=== PATIENT | male | born 1935 | race Caucasian/White ===

== ENCOUNTER 2018-12-18 12:22 | Emergency (ER) | payer MEDICARE ==
[~2018-12-18] VITALS: Ht 180.3 cm; Wt 88.0 kg
[~2018-12-18 12:22] MED LIST: ASP325TEC PO; CALC650T14 PO; DONE10TA5 PO; FINA5TAB6 PO; GLIP10TA13 PO; GLUC500C2 PO; HYDR25TA4 PO; LISI10TA2 PO; METO100T2 PO; MULT-974 PO; NF-TYLARTH PO; SIMV80TA3 PO; TERA10CA PO
--- NOTE | 2018-12-18 12:50 | NUR ---
NO MED LIST WITH PATIENT,AND FAMILY KNOW MEDS.
--- NOTE | 2018-12-18 13:24 | ED Fall/Injury ---
General Chief Complaint: Trauma-Non Activation Stated Complaint: FALLEN, HIP PAIN Nursing Triage Note: TO ED PER W/C ACCOMPIED BY FAMILY. WHO REPORTS WAS SENT BY HOME HEALTH . PATIENT FELL UNSURE WHEN. PATIENT REPORTS THAT HE TRIPPED AND FELL C/O PAIN IN L KNEE. Source: patient Exam Limitations: no limitations History of Present Illness Date Seen by Provider: Dec 18, 2018 Time Seen by Provider: 12:33 Initial Comments Here with report of fall couple days ago. Apparently had some pain to the left hip and knee as evaluated by home health nurse from the [place]. She recommended to the family that he is sent for evaluation. They ultimately brought him here for evaluation of the knee. Patient denies hitting his head. He does have some balance problems related to history of cerebral aneurysm and brain injury from that. Occurred: other (2 days ago) Severity: moderate Injuries/Pain Location: pelvis, lower extremity Context: tripped Loss of Consciousness: no loss of consciousness Associated Symptoms (Fall): No Abdominal Pain, No Chest Pain, No Confusion, No Headache; Trouble Walking Allergies and Home Medications Allergies Coded Allergies: Penicillins (Verified Allergy, Unknown, 02/11/06) Home Medications Acetaminophen 650 Mg Cplt, 650 MG PO BID PRN for PAIN, (Reported) Aspirin 325 Mg Tabec, 325 MG PO DAILY, (Reported) Calcium Carbonate 650 Mg Tablet, 650 MG PO BID, (Reported) Donepezil HCl 10 Mg Tablet, 10 MG PO HS, (Reported) STATUS AT [place] - START DATE 06-04-13 #90 WITH 1 REFILL Finasteride 5 Mg Tablet, 5 MG PO DAILY, (Reported) Glipizide 10 Mg Tablet, 10 MG PO TID, (Reported) Glucosamine Sulfate 500 Mg Capsule, 500 MG PO DAILY, (Reported) Hydrochlorothiazide 25 Mg Tablet, 25 MG PO DAILY, (Reported) Lisinopril 10 Mg Tablet, 10 MG PO DAILY, (Reported) Metoprolol Tartrate 100 Mg Tablet, 100 MG PO BID, (Reported) Multivitamin 1 Each Tablet, 1 TAB PO DAILY, (Reported) Simvastatin 80 Mg Tablet, 80 MG PO HS, (Reported) Terazosin Hcl 10 Mg Capsule, 20 MG PO HS, (Reported) TAKES 2 (10MG) CAPSULES Patient Home Medication List Home Medication List Reviewed: Yes Review of Systems Review of Systems Constitutional: see HPI; No chills, No fever Ears, Nose, Mouth, Throat: no symptoms reported Respiratory: no symptoms reported Cardiovascular: no symptoms reported Gastrointestinal: no symptoms reported Musculoskeletal: see HPI, joint pain, muscle stiffness Skin: change in color; No lesions Past Eyopqrz-Lwdssh-Lqpgmg Hx Past Med/Social Hx: Reviewed Nursing Past Med/Soc Hx Patient Social History Alcohol Use: Denies Use Recreational Drug Use: No Smoking Status: Never a Smoker Recent Foreign Travel: No Contact w/Someone Who Travel: No Recent Infectious Disease Expo: No Past Medical History Surgeries: Yes (RIGHT ARM SURGERY, ?CEREBRAL ANEURSYM REPAIR? ) Neurological, Orthopedic Respiratory: No Cardiac: Yes Hypertension Neurological: Yes (ISCHEMIC CVA 2006, RIGHT ARM WEAKNESS. EXPRESSIVE APHASIA. ? ANEURYSM ? ) Dementia, Stroke Gastrointestinal: No Musculoskeletal: No Endocrine: Yes Diabetes, Non-Insulin dep Cancer: No Psychosocial: No Integumentary: No Blood Disorders: No Family Medical History Reviewed Nursing Family Hx Physical Exam Vital Signs Vital Signs - First Documented 12/18/18 12:25 Temp 99.2 Pulse 88 Resp 18 B/P (MAP) 144/66 (92) Pulse Ox 98 O2 Delivery Room Air Capillary Refill : Less Than 3 Seconds Height, Weight, BMI Height: 5'11.00" Weight: 194lbs. oz. 87.816425go; BMI Method:Stated General Appearance: WD/WN, no apparent distress HEENT: PERRL/EOMI, TMs normal Cardiovascular: regular rate, rhythm, no murmur Respiratory: lungs clear, normal breath sounds Gastrointestinal: non tender, soft Extremities: pelvis stable, other (significant deformity noted. Not specifically tender on palpation but does have some pain with range of motion of the left knee and left hip. No pain with range of motion of right knee and right hip.) Neurologic/Psychiatric: alert, oriented x 3 Skin: warm/dry, ecchymosis (right anterior knee and a small ecchymotic area to the left anterior lateral knee.) Laura Coma Score Best Eye Response: (4) Open Spontaneously Best Verbal Response: (5) Oriented Best Motor Response: (6) Obeys Commands Progress/Results/Core Measures Results/Orders My Orders Orders - BEKAH STEWARD MD Knee, Left, 3 Views (12/18/18 12:37) Pelvis With Left Hip 2-3 Views (12/18/18 12:37) Vital Signs/I&O 12/18/18 12:25 Temp 99.2 Pulse 88 Resp 18 B/P (MAP) 144/66 (92) Pulse Ox 98 O2 Delivery Room Air Blood Pressure Mean: 92 Progress Progress Note : Progress Note Seen and evaluated. X-ray of pelvis and left hip as well as left knee. Monitor patient. 1400: No acute findings on x-ray. Does have rather pronounced and significant degenerative changes of the left hip which is likely the cause of the pain after the fall. Discharged home with return precautions. Patient verbalize understanding instructions and agreement with plan. Diagnostic Imaging Diagonstic Imaging: Xray Plain Films/CT/US/NM/MRI: pelvis, hip Comments [facility] [place] [place] NAME: JAVIER HERNANDEZ [facility] REC#: [id number] PT STATUS: REG ER : 1935 PHYSICIAN: BEKAH STEWARD MD ADMIT DATE: 12/18/18/ER Draft Date of Exam:12/18/18 PELVIS WITH LEFT HIP 2-3 VIEWS Indication: Pain, falls. Comparison: None available Technique: 3 radiographs of the pelvis and left hip dated 12/18/2018. Findings: Moderate degenerative changes within the partially visualized lower lumbar spine. The sacroiliac joints are intact. No acute fracture or dislocation. No destructive osseous process. Severe end-stage degenerative changes of the left hip are noted with severe joint space narrowing, particularly superiorly and prominent osteophyte formation. There is resulting mild flattening of the femoral head. Moderate scattered vascular calcifications. Phleboliths within the lower pelvis. Pubic symphysis is intact. Impression: No acute osseous abnormality, scattered osseous degenerative changes, including severe end-stage degenerative changes of the left hip. Dictated on workstation # [id number] Dict: 12/18/18 1328 Trans: 12/18/18 1333 CV [id number] Interpreted by: MAYRA OSBORNE MD Electronically signed by: Diagonstic Imaging: Xray Plain Films/CT/US/NM/MRI: knee Comments [facility] [place] [place] NAME: JAVIER HERNANDEZ [employer] [facility] REC#: [id number] PT STATUS: REG ER : 1935 PHYSICIAN: BEKAH STEWARD MD ADMIT DATE: 12/18/18/ER Draft Date of Exam:12/18/18 KNEE, LEFT, 3 VIEWS Indication: Left knee pain. Time of exam: 1:12 PM 3 views of the left knee were obtained. Alignment is normal. There is medial compartmental degenerative change with mild joint space narrowing. The articular surfaces are smooth. No fracture, dislocation or effusion is detected. Impression: No acute bony abnormality is detected. Dictated on workstation # [id number] Dict: 12/18/18 1328 Trans: 12/18/18 1329 CV [id number] Interpreted by: PABLO SMITH MD Electronically signed by: Departure Impression Primary Impression: Left hip pain Additional Impression: Left knee pain Qualified Codes: M25.562 - Pain in left knee Disposition: 01 HOME, SELF-CARE Condition: Stable Departure-Patient Inst. Decision time for Depature: 14:02 Referrals: NO,LOCAL PHYSICIAN (PCP/Family) Primary Care Physician Patient Instructions: Hip Pain (DC), Knee Pain (DC) Add. Discharge Instructions: All discharge instructions reviewed with patient and/or family. Voiced understanding. 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 There are no fractures. You may take Tylenol/acetaminophen 1000 mg every 8 hours as needed for pain. Follow-up with your Dr. in a few days for recheck. Return for worse pain, weakness, numbness, difficulty with walking or other concerns as needed. BEKAH STEWARD MD Dec 18, 2018 13:24
--- NOTE | 2018-12-18 13:30 | Diagnostic Imaging Report ---
Indication: Left knee pain. Time of exam: 1:12 PM 3 views of the left knee were obtained. Alignment is normal. There is medial compartmental degenerative change with mild joint space narrowing. The articular surfaces are smooth. No fracture, dislocation or effusion is detected. Impression: No acute bony abnormality is detected. Dictated by: Dictated on workstation # [id number]
--- NOTE | 2018-12-18 13:33 | Diagnostic Imaging Report ---
Indication: Pain, falls. Comparison: None available Technique: 3 radiographs of the pelvis and left hip dated 12/18/2018. Findings: Moderate degenerative changes within the partially visualized lower lumbar spine. The sacroiliac joints are intact. No acute fracture or dislocation. No destructive osseous process. Severe end-stage degenerative changes of the left hip are noted with severe joint space narrowing, particularly superiorly and prominent osteophyte formation. There is resulting mild flattening of the femoral head. Moderate scattered vascular calcifications. Phleboliths within the lower pelvis. Pubic symphysis is intact. Impression: No acute osseous abnormality, scattered osseous degenerative changes, including severe end-stage degenerative changes of the left hip. Dictated by: Dictated on workstation # [id number]
[2018-12-18 14:20] VITALS: BP 144/66
== END 2018-12-18 14:12 | disposition home or self-care (01) ==
LOC: EDUNIT# 12:22 → ER 12:24
DX: M25.552 Pain in left hip (principal); M25.562 Pain in left knee; F03.90 Unspecified dementia, unspecified severity, without behavioral disturbance, psychotic disturbance, mood disturbance, and anxiety; I10 Essential (primary) hypertension; E11.9 Type 2 diabetes mellitus without complications; Z88.0 Allergy status to penicillin; Z79.82 Long term (current) use of aspirin; Z79.84 Long term (current) use of oral hypoglycemic drugs
CPT/HCPCS: 73562

== ENCOUNTER 2019-06-11 11:46 | Inpatient (IN) | payer OTHER, MEDICARE ==
[2019-06-11] VITALS (16 sets, daily range): BP systolic 100–184; BP diastolic 51–119
[~2019-06-11] VITALS: Ht 176 cm; Wt 68.4 kg
[2019-06-11] MEDS ORDERED: ASPIRIN 81 MG CHEW (CHILDREN'S ASA) PO ONE (12:00)
[2019-06-11 12:02] LABS: BASOPHILS % (AUTO) 0 % (0-10); EOSINOPHILS # (AUTO) 0.1 10^3/uL (0.0-0.3); EOSINOPHILS % (AUTO) 1 % (0-10); HEMATOCRIT 34 % (40-54); HEMOGLOBIN 10.7 G/DL (13.3-17.7); LYMPHOCYTES # (AUTO) 1.2 X 10^3 (1.0-4.0); LYMPHOCYTES % (AUTO) 11 % (12-44); MEAN CORPUSCULAR HEMOGLOBIN 31 PG (25-34); MEAN CORPUSCULAR HGB CONC 32 G/DL (32-36); MEAN CORPUSCULAR VOLUME 97 FL (80-99); MEAN PLATELET VOLUME 9.7 FL (7.4-10.4); MONOCYTES # (AUTO) 0.9 X 10^3 (0.0-1.0); MONOCYTES % (AUTO) 8 % (0-12); NEUTROPHILS # (AUTO) 8.5 X 10^3 (1.8-7.8); NEUTROPHILS % (AUTO) 80 % (42-75); PLATELET COUNT 328 10^3/uL (130-400); RED CELL DISTRIBUTION WIDTH 12.9 % (10.0-14.5); WHITE BLOOD COUNT 10.7 10^3/uL (4.3-11.0)
--- NOTE | 2019-06-11 12:09 | ED Chest Pain ---
General Chief Complaint: Chest Pain Stated Complaint: CP History of Present Illness Date Seen by Provider: Jun 11, 2019 Time Seen by Provider: 11:59 Initial Comments To ER for complaints of Chest Pain. Patient has a baseline altered mental status due to previous history of brain aneurysm. Brain aneurysm that was many years ago when he was in the , expressive aphasia. Patient reports that his CP started at 0130 this morning, pain-free at this time. Denies shortness of breath, N/V, or diaphoresis. No family at the bedside. Patient has a history of DM and HTN. Severity/Quality: mild, dull Location: substernal Radiation: no radiation Activities at Onset: none ASA po TILE MACHINE OPERATOR: No NTG SL TILE MACHINE OPERATOR: No Associated Symptoms: denies symptoms Allergies and Home Medications Allergies Coded Allergies: Penicillins (Verified Allergy, Unknown, 02/11/06) Home Medications Acetaminophen 650 Mg Cplt, 650 MG PO BID PRN for PAIN, (Reported) Aspirin 325 Mg Tabec, 325 MG PO DAILY, (Reported) Calcium Carbonate 650 Mg Tablet, 650 MG PO BID, (Reported) Donepezil HCl 10 Mg Tablet, 10 MG PO HS, (Reported) STATUS AT [place] - START DATE 06-04-13 #90 WITH 1 REFILL Finasteride 5 Mg Tablet, 5 MG PO DAILY, (Reported) Glipizide 10 Mg Tablet, 10 MG PO TID, (Reported) Glucosamine Sulfate 500 Mg Capsule, 500 MG PO DAILY, (Reported) Hydrochlorothiazide 25 Mg Tablet, 25 MG PO DAILY, (Reported) Lisinopril 10 Mg Tablet, 10 MG PO DAILY, (Reported) Metoprolol Tartrate 100 Mg Tablet, 100 MG PO BID, (Reported) Multivitamin 1 Each Tablet, 1 TAB PO DAILY, (Reported) Simvastatin 80 Mg Tablet, 80 MG PO HS, (Reported) Terazosin Hcl 10 Mg Capsule, 20 MG PO HS, (Reported) TAKES 2 (10MG) CAPSULES Patient Home Medication List Home Medication List Reviewed: Yes Review of Systems Review of Systems Constitutional: no symptoms reported EENTM: No Symptoms Reported Respiratory: No Symptoms Reported Cardiovascular: Chest Pain Gastrointestinal: No Symptoms Reported Genitourinary: No Symptoms Reported Musculoskeletal: no symptoms reported Skin: no symptoms reported Psychiatric/Neurological: No Symptoms Reported Endocrine: No Symptoms Reported Hematologic/Lymphatic: No Symptoms Reported Past Alrvlpc-Notayt-Dpmqzf Hx Past Medical History Surgeries: Yes (RIGHT ARM SURGERY, ?CEREBRAL ANEURSYM REPAIR? ) Neurological, Orthopedic Respiratory: No Cardiac: Yes Hypertension Neurological: Yes (ISCHEMIC CVA 2006, RIGHT ARM WEAKNESS. EXPRESSIVE APHASIA. ? ANEURYSM ? ) Dementia, Stroke Gastrointestinal: No Musculoskeletal: No Endocrine: Yes Diabetes, Non-Insulin dep Cancer: No Psychosocial: No Integumentary: No Blood Disorders: No Physical Exam Vital Signs Vital Signs - First Documented 06/11/19 12:00 Temp 37.0 Pulse 61 Resp 18 B/P (MAP) 136/81 (99) Pulse Ox 99 O2 Delivery Nasal Cannula O2 Flow Rate 2.00 Capillary Refill : Height, Weight, BMI Height: 5'11.00" Weight: 194lbs. oz. 87.212818dy; BMI Method:Stated General Appearance: No Apparent Distress HEENT: PERRL/EOMI Neck: Normal Inspection Respiratory: Chest Non Tender, Lungs Clear, Normal Breath Sounds, No Accessory Muscle Use, No Respiratory Distress Cardiovascular: Regular Rate, Rhythm, No Edema, No JVD Gastrointestinal: Normal Bowel Sounds Extremity: Normal Capillary Refill, Normal Inspection Neurologic/Psychiatric: Alert, Other (Alert and oriented but forgetful ) Skin: Normal Color, Warm/Dry Progress/Results/Core Measures Results/Orders Lab Results Laboratory Tests Test 06/11/19 11:55 Range/Units White Blood Count 10.7 4.3-11.0 10^3/uL Red Blood Count 3.47 L 4.35-5.85 10^6/uL Hemoglobin 10.7 L 13.3-17.7 G/DL Hematocrit 34 L 40-54 % Mean Corpuscular Volume 97 80-99 FL Mean Corpuscular Hemoglobin 31 25-34 PG Mean Corpuscular Hemoglobin Concent 32 32-36 G/DL Red Cell Distribution Width 12.9 10.0-14.5 % Platelet Count 328 130-400 10^3/uL Mean Platelet Volume 9.7 7.4-10.4 FL Neutrophils (%) (Auto) 80 H 42-75 % Lymphocytes (%) (Auto) 11 L 12-44 % Monocytes (%) (Auto) 8 0-12 % Eosinophils (%) (Auto) 1 0-10 % Basophils (%) (Auto) 0 0-10 % Neutrophils # (Auto) 8.5 H 1.8-7.8 X 10^3 Lymphocytes # (Auto) 1.2 1.0-4.0 X 10^3 Monocytes # (Auto) 0.9 0.0-1.0 X 10^3 Eosinophils # (Auto) 0.1 0.0-0.3 10^3/uL Basophils # (Auto) 0.0 0.0-0.1 10^3/uL Prothrombin Time 14.5 12.2-14.7 SEC INR Comment 1.1 0.8-1.4 Activated Partial Thromboplast Time 28 24-35 SEC Sodium Level 136 135-145 MMOL/L Potassium Level 3.8 3.6-5.0 MMOL/L Chloride Level 102 98-107 MMOL/L Carbon Dioxide Level 25 21-32 MMOL/L Anion Gap 9 5-14 MMOL/L Blood Urea Nitrogen 11 7-18 MG/DL Creatinine 1.35 H 0.60-1.30 MG/DL Estimat Glomerular Filtration Rate 51 BUN/Creatinine Ratio 8 Glucose Level 185 H 70-105 MG/DL Calcium Level 8.4 L 8.5-10.1 MG/DL Corrected Calcium 8.9 8.5-10.1 MG/DL Magnesium Level 1.8 1.6-2.4 MG/DL Total Bilirubin 0.3 0.1-1.0 MG/DL Aspartate Amino Transf (AST/SGOT) 19 5-34 U/L Alanine Aminotransferase (ALT/SGPT) 12 0-55 U/L Alkaline Phosphatase 58 40-136 U/L Myoglobin 401.6 H 10.0-92.0 NG/ML Troponin I 1.726 *H <0.028 NG/ML B-Type Natriuretic Peptide 717.0 H <100.0 PG/ML Total Protein 7.0 6.4-8.2 GM/DL Albumin 3.4 3.2-4.5 GM/DL My Orders Orders - DANNY ALVES APRN Cbc With Automated Diff (06/11/19 11:56) Magnesium (06/11/19 11:56) Chest 1 View, Ap/Pa Only (06/11/19 11:56) Ekg Tracing (06/11/19 11:56) Comprehensive Metabolic Panel (06/11/19 11:56) Myoglobin Serum (06/11/19 11:56) Protime With Inr (06/11/19 11:56) Partial Thromboplastin Time (06/11/19 11:56) O2 (06/11/19 11:56) Monitor-Rhythm Ecg Trace Only (06/11/19 11:56) Lipid Panel (06/12/19 06:00) Ed Iv/Invasive Line Start (06/11/19 11:56) BNP (06/11/19 11:56) Troponin I (06/11/19 11:56) Aspirin Chewable Tablet (Baby Aspirin Ch (06/11/19 12:00) Medications Given in ED Current Medications Medications Dose Ordered Sig/Katelyn Route Start Time Stop Time Status Last Admin Dose Admin Aspirin 324 mg ONCE ONCE PO 06/11/19 12:00 06/11/19 12:01 DC 06/11/19 12:37 324 MG Vital Signs/I&O 06/11/19 12:00 Temp 37.0 Pulse 61 Resp 18 B/P (MAP) 136/81 (99) Pulse Ox 99 O2 Delivery Nasal Cannula O2 Flow Rate 2.00 Departure Communication (Admissions) Time/Spoke to Admitting Phy: 13:[address] Kimball, we'll admit consult cardiology. Time/Spoke to Consulting Phy: 13:[address] Hoskins, keep the patient here, take to catheter lab from here. Impression Primary Impression: NSTEMI (non-ST elevated myocardial infarction) Disposition: ADMITTED INPATIENT Condition: Stable Admissions Decision to Admit Reason: Admit from ER (General) Decision to Admit/Date: Jun 11, 2019 Time/Decision to Admit Time: 13:04 Departure-Patient Inst. Referrals: NO,LOCAL PHYSICIAN (PCP/Family) Primary Care Physician DANNY ALVES APRN Jun 11, 2019 12:09
[2019-06-11 12:17] LABS: INR 1.1 (0.8-1.4); PROTHROMBIN TIME PATIENT 14.5 SEC (12.2-14.7)
[2019-06-11 12:25] LABS: ALBUMIN 3.4 GM/DL (3.2-4.5); BILIRUBIN,TOTAL 0.3 MG/DL (0.1-1.0); CALCIUM 8.4 MG/DL (8.5-10.1); CREATININE SERUM 1.35 MG/DL (0.60-1.30); MAGNESIUM 1.8 MG/DL (1.6-2.4); POTASSIUM 3.8 MMOL/L (3.6-5.0)
[2019-06-11] MEDS ORDERED: HEParin (CATH LAB) 2,000 ML IV ONE (13:18)
[2019-06-11] MEDS ORDERED: LIDOCAINE 1% INJ 20 ML 20 ML VIAL ONE (13:18)
[2019-06-11] MEDS ORDERED: NS IV 1000 ML 1,000 ML ONE (13:18)
--- NOTE | 2019-06-11 13:19 | Diagnostic Imaging Report ---
INDICATION: Chest pain. COMPARISON: 08/27/2014. FINDINGS: Rightward rotation limits assessment of the cardiomediastinal contour. The heart size is enlarged, increased from the prior exam. There is some vascular distention. Some prominence of the interstitial lung markings has increased and this may be progressive chronic disease or an element of edema. No consolidation. No effusion. IMPRESSION: Increased heart size and vessel caliber with likely mild interstitial edema. No pleural abnormality. Dictated by: Dictated on workstation # [id number]
[2019-06-11] MEDS ORDERED: MIDAZOLAM 5 MG/5 ML (VERSED) VIAL ONE (13:30)
[2019-06-11] MEDS ORDERED: fentaNYL INJECTION 100 MCG/2 ML AMP ONE (13:30)
--- NOTE | 2019-06-11 14:03 | Cardiac Procedure Note-CS/ASA ---
Pre-Procedure Note Pre-Op Procedure Note H&P Reviewed The H&P was reviewed, patient examined and no changes noted. Date H&P Reviewed: Jun 11, 2019 Time H&P Reviewed: 14:03 Conscious Sedation Pre-Proced Time 14:03 ASA Score 3 For ASA 3 and 4: Consider anesthesia and medical clearance. Also, for patients with a history of failed moderate sedation consider anesthesia. Airway Lungs Heart ASA score ASA 1: a normal healthy patient ASA 2: a patient with a mild systemic disease (mid diabetes, controlled hypertension, obesity ASA 3: a patient with a severe systemic disease that limits activity (angina, COPD, prior Myocardial infarction) ASA 4: a patient with an incapacitating disease that is a constant threat to life (CHF, renal failure) ASA 5: a moribund patient not expected to survive 24 hrs. (ruptured aneurysm) ASA 6: a declared brain- patient whose organs are being harvested. For emergent operations, add the letter E after the classification Mallampati Classification Grade 2 Sedation Plan Analgesia, Amnesia, Plan communicated to team members, Discussed options with patient/fam, Discussed risks with patient/fam The patient is an appropriate candidate to undergo the planned procedure, sedation, and anesthesia. The patient immediately re-assessed prior to indication. CHRISTINE HOOVER MD FACP FAC CCDS Jun 11, 2019 14:03
--- NOTE | 2019-06-11 14:14 | Consultation-Cardiology ---
HPI-Cardiology Cardiology Consultation: Date of Consultation 06/11/19 Time Seen by a Provider: 14:00 Date of Admission Admitting Physician No,Local Physician Consulting Physician CHRISTINE HOOVER MD, MA, FACP, FACC, FSCAI, CCDS HPI: Chief Complaint: CC: Chest pain HPI 83 yo man with chronic dysphasia who presented to ER with chest pain: started this am, not experienced before, midsternal, mod, improved with s/l NTG, nonradiating, Communication is difficult because of dysphasia He does not report shortness of breath Denies palp or syncope Review of Systems-Cardiology Review of Systems Constitutional: malaise, tiredness; No weight loss, No weight gain Eyes: No vision change Ears/Nose/Throat: No ear discharge, No nasal drainage, No recent hearing loss Respiratory: As described under HPI Cardiovascular: As described under HPI Gastrointestinal: No constipation, No diarrhea, No nausea, No vomiting Genitourinary: No dysuria, No hematuria, No urine frequency changes Musculoskeletal: back pain (chronic) Skin: No rash, No ulcerations Psychiatric/Neurological: other (chronic expressive dysphasia); No seizure Hematologic: No bleeding abnormalities [id number]-Pmkvbh-Fqfbwr Hx Patient Social History Alcohol Use: Past History Recreational Drug Use: No Smoking Status: Former Smoker Type Used: Cigarettes Recent Foreign Travel: No Recent Infectious Disease Expo: No Past Medical History PMH As described under Assessment. Family Medical History Family Medical History: Does not report fam h/o early CAD or SCD Allergies and Home Medications Allergies Coded Allergies: Penicillins (Verified Allergy, Unknown, 02/11/06) Home Medications Acetaminophen 650 Mg Cplt, 650 MG PO BID PRN for PAIN, (Reported) Aspirin 325 Mg Tabec, 325 MG PO DAILY, (Reported) Calcium Carbonate 650 Mg Tablet, 650 MG PO BID, (Reported) Donepezil HCl 10 Mg Tablet, 10 MG PO HS, (Reported) STATUS AT [place] - START DATE 06-04-13 #90 WITH 1 REFILL Finasteride 5 Mg Tablet, 5 MG PO DAILY, (Reported) Glipizide 10 Mg Tablet, 10 MG PO TID, (Reported) Glucosamine Sulfate 500 Mg Capsule, 500 MG PO DAILY, (Reported) Hydrochlorothiazide 25 Mg Tablet, 25 MG PO DAILY, (Reported) Lisinopril 10 Mg Tablet, 10 MG PO DAILY, (Reported) Metoprolol Tartrate 100 Mg Tablet, 100 MG PO BID, (Reported) Multivitamin 1 Each Tablet, 1 TAB PO DAILY, (Reported) Simvastatin 80 Mg Tablet, 80 MG PO HS, (Reported) Terazosin Hcl 10 Mg Capsule, 20 MG PO HS, (Reported) TAKES 2 (10MG) CAPSULES Patient Home Medication List Home Medication List Reviewed: Yes Physical Exam-Cardiology Physical Exam Vital Signs/I&O 06/11/19 12:00 Temp 37.0 Pulse 61 Resp 18 B/P (MAP) 136/81 (99) Pulse Ox 99 O2 Delivery Nasal Cannula O2 Flow Rate 2.00 Capillary Refill : Less Than 3 Seconds Constitutional: AAO x 3, well-developed, well-nourished HEENT: other (wearing upper and lower dentures), EOMI, hearing is well preserved; No xanthelasmas are seen Neck: carotid pulses are 2 + bilaterally, with good upstrokes Respiratory: No accessory muscle use; other (fair to good bilat air entry, somewhat prolonged exp) Cardiovascular: regular rate-rhythm, S1 and S2, systolic murmur (soft STACEY at card base) Gastrointestinal: No tender; soft; No guarding, No rebound; audible bowel sounds Extremities: No clubbing, No cyanosis, No significant edema Neurologic/Psychiatric: oriented x 3, other (expressive dysphasia; seems to move all of his limbs equally) Skin: No rash, No ulcerations Data Review Labs Laboratory Tests 06/11/19 11:55: White Blood Count 10.7, Red Blood Count 3.47L, Hemoglobin 10.7L, Hematocrit 34L, Mean Corpuscular Volume 97, Mean Corpuscular Hemoglobin 31, Mean Corpuscular Hemoglobin Concent 32, Red Cell Distribution Width 12.9, Platelet Count 328, Mean Platelet Volume 9.7, Neutrophils (%) (Auto) 80H, Lymphocytes (%) (Auto) 11L , Monocytes (%) (Auto) 8, Eosinophils (%) (Auto) 1, Basophils (%) (Auto) 0, Neutrophils # (Auto) 8.5H, Lymphocytes # (Auto) 1.2, Monocytes # (Auto) 0.9, Eosinophils # (Auto) 0.1, Basophils # (Auto) 0.0, Prothrombin Time 14.5, INR Comment 1.1, Activated Partial Thromboplast Time 28, Sodium Level 136, Potassium Level 3.8, Chloride Level 102, Carbon Dioxide Level 25, Anion Gap 9, Blood Urea Nitrogen 11, Creatinine 1.35H, Estimat Glomerular Filtration Rate 51, BUN/Creatinine Ratio 8, Glucose Level 185H, Calcium Level 8.4L, Corrected Calcium 8.9, Magnesium Level 1.8, Total Bilirubin 0.3, Aspartate Amino Transf (AST/SGOT) 19, Alanine Aminotransferase (ALT/SGPT) 12, Alkaline Phosphatase 58, Myoglobin 401.6H, Troponin I 1.726*H, B-Type Natriuretic Peptide 717.0H, Total Protein 7.0, Albumin 3.4 Laboratory Tests 06/11/19 11:55 A/P-Cardiology Assessment/Admission Diagnosis Ac NSTEMI 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 He provides informed consent * Further recs based on cath results Clinical Quality Measures AMI/AHF: ASA po Prior to arrival: CHRISTINE Beard MD FACP FAC CCDS Jun 11, 2019 14:14
[2019-06-11] MEDS ORDERED: HEParin 1000 UNIT/ML (10ML VIAL) FOR BOLUS ONE (14:32)
[2019-06-11] MEDS ORDERED: EPTIFIBATIDE BOLUS 20 ML IV ONE (14:35)
--- NOTE | 2019-06-11 15:46 | CARDIAC CATHETERIZATION ---
DATE OF SERVICE: 06/11/2019 CARDIAC CATHETERIZATION The patient is an 83-year-old man who presents with chest pain and elevated troponin, indicative of non-ST elevation myocardial infarction. Cardiac catheterization was carried out after having obtained an informed consent. DESCRIPTION OF PROCEDURE: He was brought to the cardiac catheterization laboratory. Right groin was prepared and draped in the usual sterile fashion. Lidocaine 1% was used for local anesthesia. Modified Seldinger technique was used to advance a 5-Estonian sheath in the right femoral artery, 5-Estonian JL4 catheter for left coronary angiography, 5-Estonian JR4 catheter for right coronary angiography, 5-Estonian pigtail catheter was used for left heart catheterization and left ventricular angiography. PERCUTANEOUS INTERVENTION TO THE LEFT CIRCUMFLEX: Following completion of diagnostic procedure, we attempted percutaneous intervention of the left circumflex artery, which appeared to have 99 to 100% occlusion in its proximal portion. We exchanged the sheath over a wire for a 6-Estonian sheath. We gave a double bolus Integrilin and 5000 units of intravenous heparin. We used a 6-Estonian JL4 guide catheter to engage the left coronary artery. We attempted to cross the lesion with a ChoICE floppy and ChoICE PT Graphix wire to try and cross the lesion, but we remained unsuccessful. The angioplasty equipment was then removed because this was felt to be a chronic total occlusion. Angiography of the right femoral artery was carried out through the sheath and Mynx was used to achieve hemostasis. HEMODYNAMICS: Left ventricular end-diastolic pressure following coronary angiography was 12 mmHg. There was no significant pressure gradient on pullback across the aortic valve. Ascending aortic pressure was 108/46 with a mean of 72 mmHg. CORONARY ANGIOGRAPHY: There is diffuse coronary calcification. The proximal left anterior descending artery has heavy coronary calcification. Left main coronary artery has stenosis of less than 30%. Left anterior descending artery has diffuse moderate disease and approximately 70% stenosis at one spot in its distal portion. The ramus intermedius artery has 60% to 70% ostial stenosis. Left circumflex artery has 99 to 100% stenosis in its proximal portion. Attempted angioplasty to this portion was unsuccessful. This appears to be a chronic total occlusion. The right coronary artery has 70% to 80% proximal stenosis and is occluded in its mid to distal portion. There are faint left to right collaterals. LEFT VENTRICULAR ANGIOGRAPHY: Left ventricular angiography was carried out in the right anterior oblique projection. There is posterobasal dyskinesis. Left ventricular ejection fraction approximately 50%. HEMODYNAMICS: Left ventricular end-diastolic pressure is 12 mmHg. There is no significant pressure gradient on pullback across the aortic valve. Ascending aortic pressure is 108/46 with a mean of 72 mmHg. CONCLUSIONS: 1. Multivessel coronary artery disease consisting of diffuse moderate disease in the left anterior descending, including a 70% stenosis in its distal portion, 60% to 70% ostial stenosis of ramus intermedius, 99 to 100% stenosis of the proximal left circumflex, 70 to 80% stenosis of the proximal right coronary and distal occlusion of the right coronary. 2. Impairment of global left ventricular systolic function with an ejection fraction of 50%. 3. Posterior basal akinesis. 4. Normal left ventricular end-diastolic pressure. DISCUSSION AND RECOMMENDATIONS: Based on the results of the study, options are continuing medical therapy. We will discuss this with the patient and his family. We will have cardiovascular surgical service review his films to see if he may be a suitable candidate for bypass surgery. Job ID: [id number] DocumentID: [id number] Dictated Date: 06/11/2019 15:25:05 Deportation Examiner Date: 06/11/2019 15:45:58 Dictated By: CHRISTINE HOOVER MD, MA, FACP, FACC,
[2019-06-11] MEDS ORDERED: PATIENT MAY USE OWN MEDS, ALL PO SCH (16:00)
[2019-06-11] MEDS ORDERED: meTOproloL SUCCINATE 50 MG (TOPROL XL) TAB PO SCH (16:00)
[2019-06-11] MEDS ORDERED: CLOPIDOGREL 300 MG (PLAVIX) TABLET PO ONE ×2 (16:00→19:34)
[2019-06-11] MEDS ORDERED: NITROGLYCERIN 0.4 MG SL TABS BTL 25'S SL PRN (16:00)
[2019-06-11] MEDS: NS IV 1000 ML 1,000 ML IV SCH (16:53)
[2019-06-11] MEDS ORDERED: CLOPIDOGREL 75 MG (PLAVIX) TABLET ONE (19:26)
--- NOTE | 2019-06-11 20:25 | NUR ---
PT C/O BEING SHORT OF AIR, AUDIBLE CRACKLES HEARD AND CRACKLES AUSCULTATED BILAT. O2 SATS 80%. OXYGEN APPLIED AT [address] HOOVER NOTIFIED. ORDERS RECEIVED TO GIVE 100 MG LASX IV AND TRANSFER TO ICU AND T CONSULT EICU. LASIX GIVEN AND REPORT TO LOTTIE BYRD
[2019-06-11] MEDS ORDERED: FUROSEMIDE 40 MG/4 ML INJ (LASIX) IVP ONE (20:30)
--- NOTE | 2019-06-11 20:37 | NUR ---
Bedside report and care of pt received from ROCHELLE Weston. Pt to CU 7, monitors attached, pt hypertensive and tachycardic, pt sats in 80s, o2 increased to 10L, senior oracle adf developer and E-ICU notified, orders received. Vapotherm attempted, pt's sats remain in 80's, bipap at 100 attempted, pt sats in 90's, see chart for further interventions/assessment.
[2019-06-11 20:55] LABS: ABG OXYGEN SATURATION 83 % (94-100); ABG PCO2 33 MMHG (35-45); ABG PH 7.43 (7.37-7.43); ABG PO2 49 MMHG (79-93); ABG TCO2 22.9 MMOL/L (21.0-31.0)
[2019-06-11] MEDS ORDERED: meTOprolol 5 MG/5 ML (LOPRESSOR) VIAL ONE (20:59)
[2019-06-11 21:01] LABS: ALLENS TEST YES-POS; INSPIRED O2 10L; PATIENT TEMP 35.9; VENTILATOR NO
[2019-06-11 21:11] LABS: BASOPHILS # (AUTO) 0.1 10^3/uL (0.0-0.1); BASOPHILS % (AUTO) 0 % (0-10); EOSINOPHILS # (AUTO) 0.1 10^3/uL (0.0-0.3); EOSINOPHILS % (AUTO) 1 % (0-10); HEMATOCRIT 37 % (40-54); LYMPHOCYTES # (AUTO) 2.6 X 10^3 (1.0-4.0); LYMPHOCYTES % (AUTO) 13 % (12-44); MEAN CORPUSCULAR HEMOGLOBIN 31 PG (25-34); MEAN CORPUSCULAR HGB CONC 32 G/DL (32-36); MEAN CORPUSCULAR VOLUME 95 FL (80-99); MEAN PLATELET VOLUME 9.7 FL (7.4-10.4); MONOCYTES # (AUTO) 1.2 X 10^3 (0.0-1.0); MONOCYTES % (AUTO) 6 % (0-12); NEUTROPHILS # (AUTO) 16.7 X 10^3 (1.8-7.8); NEUTROPHILS % (AUTO) 81 % (42-75); PLATELET COUNT 411 10^3/uL (130-400); RED CELL DISTRIBUTION WIDTH 13.3 % (10.0-14.5); WHITE BLOOD COUNT 20.7 10^3/uL (4.3-11.0)
--- NOTE | 2019-06-11 21:17 | Diagnostic Imaging Report ---
INDICATION: Shortness of breath. Comparison is made with prior examination from 06/11/2019. FINDINGS: There is cardiomegaly and some venous congestion. There is now diffuse infiltrate throughout the left lung. There is no pleural effusion or pneumothorax. IMPRESSION: Interval development of a diffuse infiltrate in the left lung presumably pneumonia Cardiomegaly and some venous congestion Dictated by: Dictated on workstation # [id number]
[2019-06-11 21:20] LABS: INR 1.1 (0.8-1.4); PROTHROMBIN TIME PATIENT 14.8 SEC (12.2-14.7)
[2019-06-11 21:29] LABS: ALBUMIN 3.2 GM/DL (3.2-4.5); BILIRUBIN,TOTAL 0.4 MG/DL (0.1-1.0); CALCIUM 8.4 MG/DL (8.5-10.1); CREATININE SERUM 1.31 MG/DL (0.60-1.30); MAGNESIUM 1.9 MG/DL (1.6-2.4); PHOSPHORUS 2.6 MG/DL (2.3-4.7); POTASSIUM 5.2 MMOL/L (3.6-5.0)
[2019-06-11] MEDS ORDERED: meTOprolol 5 MG/5 ML (LOPRESSOR) VIAL IV ONE (21:45)
[2019-06-11 23:42] LABS: ABG BASE EXCESS -1.1 MMOL/L (-2.5-2.5); ABG OXYGEN SATURATION 100 % (94-100); ABG PCO2 32 MMHG (35-45); ABG PH 7.45 (7.37-7.43); ABG PO2 299 MMHG (79-93); ABG TCO2 23.5 MMOL/L (21.0-31.0)
[2019-06-11 23:43] LABS: ALLENS TEST YES-POS; INSPIRED O2 100%; VENTILATOR NO
[2019-06-12] VITALS (25 sets, daily range): BP systolic 90–137; BP diastolic 57–98
[2019-06-12 02:58] LABS: BASOPHILS % (AUTO) 0 % (0-10); EOSINOPHILS % (AUTO) 0 % (0-10); HEMATOCRIT 33 % (40-54); HEMOGLOBIN 10.9 G/DL (13.3-17.7); LYMPHOCYTES # (AUTO) 1.1 X 10^3 (1.0-4.0); LYMPHOCYTES % (AUTO) 7 % (12-44); MEAN CORPUSCULAR HEMOGLOBIN 31 PG (25-34); MEAN CORPUSCULAR HGB CONC 33 G/DL (32-36); MEAN CORPUSCULAR VOLUME 95 FL (80-99); MEAN PLATELET VOLUME 9.5 FL (7.4-10.4); MONOCYTES % (AUTO) 6 % (0-12); NEUTROPHILS # (AUTO) 14.6 X 10^3 (1.8-7.8); NEUTROPHILS % (AUTO) 87 % (42-75); PLATELET COUNT 343 10^3/uL (130-400); WHITE BLOOD COUNT 16.7 10^3/uL (4.3-11.0)
[2019-06-12 03:18] LABS: CALCIUM 8.5 MG/DL (8.5-10.1); CREATININE SERUM 1.38 MG/DL (0.60-1.30); MAGNESIUM 1.7 MG/DL (1.6-2.4); PHOSPHORUS 2.8 MG/DL (2.3-4.7); POTASSIUM 3.7 MMOL/L (3.6-5.0)
[2019-06-12] MEDS: NS IV 1000 ML 1,000 ML IV SCH ×2 (04:16→16:16)
--- NOTE | 2019-06-12 05:06 | Pulmonary Consultation ---
History of Present Illness History of Present Illness Date Seen by Provider: Jun 12, 2019 Time Seen by Provider: 05:01 Date of Admission History of Present Illness 83yo with hx of brain aneurysm, expressive aphasia presented secondary to CP that started yesterday morning prior to admission. Denies shortness of breath, N/V, or diaphoresis. Last night pt has increased SOB and was transferred to ICU. He did receive 100mg of Lasix. LA is elevated and he has leukocytosis. I am consulted for ICU/pulmonary management. Allergies and Home Medications Allergies Coded Allergies: Penicillins (Verified Allergy, Unknown, 02/11/06) Home Medications Acetaminophen 650 Mg Cplt, 650 MG PO BID PRN for PAIN, (Reported) Aspirin 325 Mg Tabec, 325 MG PO DAILY, (Reported) Calcium Carbonate 650 Mg Tablet, 650 MG PO BID, (Reported) Donepezil HCl 10 Mg Tablet, 10 MG PO HS, (Reported) STATUS AT [place] - START DATE 06-04-13 #90 WITH 1 REFILL Finasteride 5 Mg Tablet, 5 MG PO DAILY, (Reported) Glipizide 10 Mg Tablet, 10 MG PO TID, (Reported) Glucosamine Sulfate 500 Mg Capsule, 500 MG PO DAILY, (Reported) Hydrochlorothiazide 25 Mg Tablet, 25 MG PO DAILY, (Reported) Lisinopril 10 Mg Tablet, 10 MG PO DAILY, (Reported) Metoprolol Tartrate 100 Mg Tablet, 100 MG PO BID, (Reported) Multivitamin 1 Each Tablet, 1 TAB PO DAILY, (Reported) Simvastatin 80 Mg Tablet, 80 MG PO HS, (Reported) Terazosin Hcl 10 Mg Capsule, 20 MG PO HS, (Reported) TAKES 2 (10MG) CAPSULES Past Tmqzeaz-Zierqj-Ppeurc Hx Patient Social History Alcohol Use: Past History Recreational Drug Use: No Smoking Status: Former Smoker Type Used: Cigarettes Former Smoker, Quit: Apr 17, 2002 Recent Foreign Travel: No Contact w/Someone Who Travel: No Recent Infectious Disease Expo: No Recent Hopitalizations: No Physical Abuse: No Sexual Abuse: No Mistreated: No Fear: No Seasonal Allergies Seasonal Allergies: No Past Medical History Surgeries: Yes (RIGHT ARM SURGERY, ?CEREBRAL ANEURSYM REPAIR? ) Neurological, Orthopedic Respiratory: No Cardiac: Yes Hypertension Neurological: Yes (ISCHEMIC CVA 2005, RIGHT ARM WEAKNESS. EXPRESSIVE APHASIA. ? ANEURYSM ? ) Dementia, Stroke Gastrointestinal: No Musculoskeletal: No Endocrine: Yes Diabetes, Non-Insulin dep Cancer: No Psychosocial: No Integumentary: No Blood Disorders: No Review of Systems Time Seen by Provider: 07:15 Sepsis Event Evaluation Height, Weight, BMI Height: 5'11.00" Weight: 194lbs. oz. 87.240452ma; 26.47 BMI Method:Stated Exam Exam Vital Signs Date Time Temp Pulse Resp B/P (MAP) Pulse Ox O2 Delivery O2 Flow Rate FiO2 06/12/19 04:00 75 130/69 (89) 94 NIV Bilevel 25.00 06/12/19 03:19 36.9 NIV Bilevel 25.00 06/12/19 03:00 73 104/70 (81) 95 NIV Bilevel 30.00 06/12/19 02:00 76 124/68 (86) 95 NIV Bilevel 30.00 06/12/19 01:44 NIV Bilevel 30.00 06/12/19 01:44 70 31 93 30.00 06/12/19 01:00 70 115/63 (80) NIV Bilevel 40.00 06/12/19 01:00 70 06/12/19 00:20 NIV Bilevel 40.00 06/12/19 00:00 NIV Bilevel 50 06/12/19 00:00 68 111/75 (87) 92 NIV Bilevel 50.00 06/11/19 23:47 NIV Bilevel 50.00 06/11/19 23:27 36.8 06/11/19 23:15 67 26 100/60 (73) 99 NIV Bilevel 100.00 06/11/19 22:04 80 31 143/76 (98) 98 NIV Bilevel 100.00 06/11/19 21:45 73 136/80 (98) 100 NIV Bilevel 100.00 06/11/19 21:30 82 10 142/92 (109) 100 NIV Bilevel 100.00 06/11/19 21:15 78 33 129/94 (106) NIV Bilevel 100.00 06/11/19 21:00 121 34 184/119 (140) 100 NIV Bilevel 100.00 06/11/19 21:00 90 38 100 100.00 06/11/19 21:00 NIV Bilevel 50 06/11/19 20:30 Vapotherm 30.00 40 06/11/19 20:09 36.4 87 148/72 (97) 90 Room Air 06/11/19 20:00 85 Nasal Cannula 4.00 06/11/19 20:00 Nasal Cannula 4.00 06/11/19 19:02 70 06/11/19 18:55 69 121/56 (77) 90 Room Air 06/11/19 18:06 67 130/64 (86) 90 Room Air 06/11/19 17:36 65 130/66 (87) 92 Room Air 06/11/19 17:21 61 107/51 (69) 91 Room Air 06/11/19 16:51 60 124/71 (88) 93 Room Air 06/11/19 16:32 62 06/11/19 16:30 68 120/63 (82) 90 Room Air 06/11/19 16:06 62 126/57 (80) 90 Room Air 06/11/19 16:01 37.0 65 18 104/57 99 Nasal Cannula 2.00 2.00 06/11/19 16:00 Nasal Cannula 2.00 06/11/19 15:55 Nasal Cannula 2.00 06/11/19 15:51 66 104/57 (73) 94 Room Air 06/11/19 15:50 36.2 06/11/19 13:15 37.0 61 18 136/81 (99) 99 Nasal Cannula 1.00 06/11/19 12:05 Nasal Cannula 2.00 06/11/19 12:00 37.0 61 18 136/81 (99) 99 Nasal Cannula 2.00 I & O 06/12/19 07:00 Intake Total 50 ml Output Total 1650 ml Balance -1600 ml Height & Weight Height: 5'11.00" Weight: 194lbs. oz. 87.265963bw; 26.47 BMI Method:Stated General Appearance: No Apparent Distress HEENT: PERRL/EOMI Neck: Normal Inspection Respiratory: Chest Non Tender, Lungs Clear, Normal Breath Sounds, No Accessory Muscle Use, No Respiratory Distress Cardiovascular: Regular Rate, Rhythm, No Edema, No JVD Capillary Refill: Less Than 3 Seconds Extremity: Normal Capillary Refill, Normal Inspection Neurologic/Psychiatric: Alert, Other (Alert and oriented but forgetful ) Skin: Normal Color, Warm/Dry Results Lab Laboratory Tests 06/11/19 11:55 06/11/19 21:00 06/12/19 02:45 Assessment/Plan Assessment/Plan Acute respiratory failure -BiPAP currently -CXR shows acute L>R infiltrates -Start Duoneb Acute pneumonia with leukocytosis and lactic acidosis with sepsis -Larkin cultures pending -RVP pending -Influenza is negative -MRSA pending -Start azithromycin and Cefepime for now and await cultures -cath EF is 50% and no diastolic dysfunction. -repeat BNP Metabolic lactic acidosis -Monitor -Right now IVF are SL. Will see what next LA result. DM II CKD Anemia -Monitor KIA CLEMENT DO Jun 12, 2019 05:06
[2019-06-12] MEDS ORDERED: CEFEPIME 1 GM (MAXIPIME) VIAL ONE (05:40)
[2019-06-12] MEDS ORDERED: WATER (STERILE) FOR INJECTION 10 ML ONE (05:40)
[2019-06-12] MEDS ORDERED: CEFEPIME INJECTION 1,000 MG in WATER (STERILE) FOR INJECTION 10 ML IV SCH (06:00)
[2019-06-12 06:13] LABS: BILIRUBIN,URINE NEGATIVE (NEGATIVE); CLARITY,URINE CLEAR; COLOR,URINE YELLOW; GLUCOSE, URINE (UA) NEGATIVE (NEGATIVE); KETONES,URINE NEGATIVE (NEGATIVE); LEUKOCYTE ESTERASE ,URINE 1+ (NEGATIVE); NITRITE,URINE NEGATIVE (NEGATIVE); PROTEIN,URINE NEGATIVE (NEGATIVE)
[2019-06-12 06:26] LABS: BACTERIA,URINE FEW /HPF
[2019-06-12] MEDS ORDERED: AZITHROMYCIN INJECTION 500 MG in NS (IVPB) 250 ML IV NR (06:30)
[2019-06-12] MEDS: RT-ALBUTEROL/IPRATROPIUM 3 ML (DUONEB) VIAL INH SCH ×5 (07:05→21:58)
--- NOTE | 2019-06-12 07:54 | Diagnostic Imaging Report ---
Indication: Respiratory distress Portable chest 3:39 AM There is diffuse alveolar infiltrate in the left lung. The right lung is clear. There are no effusions or pneumothoraces. IMPRESSION: Diffuse infiltrate left lung. This appears to have improved slightly compared to the previous day. Dictated by: Dictated on workstation # [id number]
[2019-06-12] MEDS: ASPIRIN 81 MG CHEW (CHILDREN'S ASA) PO SCH (08:17)
[2019-06-12] MEDS: CLOPIDOGREL 75 MG (PLAVIX) TABLET PO SCH (08:17)
[2019-06-12] MEDS: meTOproloL SUCCINATE 50 MG (TOPROL XL) TAB PO SCH (08:18)
--- NOTE | 2019-06-12 11:36 | History & Physical-Hospitalist ---
ASYA JAEMS,MED STUDENT 06/12/19 1136: History of Present Illness HPI/Chief Complaint Patient is an 83 y/o male who presented to the ED yesterday with chest pain. The pain was midsternal and did not radiate. It was relieved with nitro. Cardiac troponin was found to be elevated and he was diagnosed with NSTEMI. Cardiac cath was done yesterday and due to multivessel disease, no stents were placed pending evaluation for possible CABG. Last night patient developed shortness of breath and interval development of left lung infiltrate was noted on chest x-ray. He feels his breathing has improved today and he had no new complaints or concerns at this time. Family is at bedside and reports concerns regarding where he will go at the time of discharge. 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 Date Seen 06/12/19 Time Seen by a Provider: 11:30 Attending Physician Gabriel Hutchins MD Facp Facc Ccds PCP No,Local Physician Referring Physician Date of Admission Jun 11, 2019 at 20:49 Home Medications & Allergies Home Medications Reviewed patient Home Medication Reconciliation performed by pharmacy medication reconciliations fuel testing technician and/or nursing. Patients Allergies have been reviewed. Allergies Allergies Coded Allergies Penicillins (Verified Allergy, Unknown, 02/11/06) Past Kzguewa-Wtdkqt-Sezhjt Hx Patient Social History Alcohol Use: Past History Recreational Drug Use: No Smoking Status: Former Smoker Former Smoker, Quit: Apr 17, 2002 Type Used: Cigarettes Recent Foreign Travel: No Contact w/other who traveled: No Recent Hopitalizations: No Recent Infectious Disease Expo: No Seasonal Allergies Seasonal Allergies: No Past Medical History Surgeries: Neurological, Orthopedic Cardiac: Hypertension Neurological: Dementia, Stroke Endocrine: Diabetes, Non-Insulin dep History of Blood Disorders: No Physical Exam Physical Exam Vital Signs Vital Signs - First Documented 06/11/19 06/11/19 12:00 20:30 Temp 37.0 Pulse 61 Resp 18 B/P (MAP) 136/81 (99) Pulse Ox 99 O2 Delivery Nasal Cannula O2 Flow Rate 2.00 FiO2 40 Capillary Refill : Less Than 3 Seconds Height, Weight, BMI Height: 5'11.00" Weight: 194lbs. oz. 87.190256ia; 26.47 BMI Method:Stated Results Results/Procedures Labs Laboratory Tests 06/11/19 11:55 06/11/19 21:00 06/12/19 02:45 Patient resulted labs reviewed. Assessment/Plan Admission Diagnosis CAD with NSTEMI Admission Status: Inpatient Order (span 2 midnights) Assessment and Plan CAD with NSTEMI - Cardiac cath done yesterday showed significant multivessel disease. He is not a candidate for CABG so cardiology recommends proceeding with staged interventions and would like to take him back to computer lab aide - Continue ASA 325 and add plavix 75 mg daily - Nitro and morphine prn - Switch to high intensity statin - atorvastatin 40 Acute hypoxic respiratory failure - BNP increased to 1404 today and pt had interval development of left lung in filtrates - Lasix 100 mg given - Pulmonology consulted, started duoneb - Pulmonology started azithromycin and cefepime - Pancultures and MRSA pending - Respiratory viral panel pending - Flu negative - Procalcitonin normal - O2 and bipap as needed - Monitor I's and O's CKD stage II - Monitor I's and O's - No evidence of acute kidney injury at this time Non insulin dependent type II diabetes - Sliding scale insulin - Hold glipizide Clinical Quality Measures AMI/AHF: ASA po Prior to arrival: No DVT/VTE Risk/Contraindication: Risk Factor Score Per Nursin RFS Level Per Nursing on Admit: 4+=Very High ANISHA VILLALTA MD 06/12/19 1557: Past Udrusxa-Vzzyed-Tdpltt Hx Past Med/Social Hx: Reviewed Nursing Past Med/Soc Hx Review of Systems ROS-Unable to Obtain: limited by expressive aphasia Constitutional: see HPI Physical Exam Physical Exam General Appearance: No Apparent Distress, Chronically ill, Thin HEENT: Moist Mucous Membranes; No Scleral Icterus (L), No Scleral Icterus (R) Neck: Supple; No JVD Respiratory: No Accessory Muscle Use, No Respiratory Distress, Decreased Breath Sounds, Other (on oxygen) Cardiovascular: Regular Rate, Rhythm, No Murmur Gastrointestinal: Normal Bowel Sounds, Non Tender, Soft Extremity: No Calf Tenderness, No Pedal Edema Neurologic/Psychiatric: Alert, Aphasia, Other (appears oriented to person and place and mostly to situation but some difficulty assesing due to baseline expressive aphasia) Skin: Normal Color, Warm/Dry Results Results/Procedures Imaging: Reviewed Imaging Report Assessment/Plan Assessment and Plan Pt admitted due to NSTEMI and cath revealed multivessel disease. Dr Hutchins discussed this case with CTS at outside hospital and sent images. They deemed CABG not to be an option and Dr Hutchins states he plan to due staged procedures. Overnight he developed acute hypoxemic respiratory failure and CXR LLL infiltrates. He was also found to have a very elevated BNP. He was transferred to the ICU and given 100mg of IV Lasix. He was placed on BiPAP. He respiratory status improved with these measures. Labs revealed a leukocytosis and he was started on broad spectrum antibiotics. Today he states he is breathing better. I discussed this with his family and with his daughter and nephew. Doll Wig Hackler has been consulted regarding placement at the family request. I did discuss code status with the family and they state they have attempted to discuss this with him in the past but he refused to talk about it. They are also unaware of the specific details regarding his aneurysm. They are unsure if he had a previous bleed or if his aneurysm was coiled or clipped. He does have evidence of a previous craniotomy and they are unsure why that was as it was done in the patient's 20s. Diagnosis/Problems Diagnosis/Problems (1) CAD (coronary artery disease) Status: Acute Qualifiers: Coronary Disease-Associated Artery/Lesion type: [place] artery [place] vs. transplanted heart: [place] heart Associated angina: with stable angina Qualified Codes: I25.118 - Atherosclerotic heart disease of [place] coronary artery with other forms of angina pectoris (2) NSTEMI (non-ST elevated myocardial infarction) Status: Acute (3) Acute respiratory failure Status: Acute Qualifiers: Respiratory failure complication: hypoxia Qualified Codes: J96.01 - Acute respiratory failure with hypoxia (4) CKD (chronic kidney disease) Status: Chronic Qualifiers: Chronic kidney disease stage: stage 3 (moderate) Qualified Codes: N18.3 - Chronic kidney disease, stage 3 (moderate) (5) Non-insulin dependent type 2 diabetes mellitus Status: Chronic (6) Normocytic anemia (7) Severe sepsis Status: Acute (8) Hyperlipidemia Status: Chronic Qualifiers: Hyperlipidemia type: mixed hyperlipidemia Qualified Codes: E78.2 - Mixed hyperlipidemia (9) Essential (primary) hypertension Status: Chronic (10) Brain aneurysm Status: Chronic (11) History of stroke with residual deficit Status: Chronic (12) Expressive aphasia Supervisory-Addendum Brief Verification & Attestation Participated in pt care: history, MDM, physical Personally performed: exam, history, MDM, supervision of care Care discussed with: Medical Student Procedures: n/a Results interpretation: Verified all documentation Verification and Attestation of Medical Student E/M Service A medical student performed and documented this service in my presence. I reviewed and verified all information documented by the medical student and made modifications to such information, when appropriate. I personally performed the physical exam and medical decision making. Anisha Villalta, Jun 12, 2019,16:02 ASYA JAMES,MED STUDENT Jun 12, 2019 11:36 ANISHA VILLALTA MD Jun 12, 2019 15:57
[2019-06-12] MEDS ORDERED: meTOproloL SUCCINATE 50 MG (TOPROL XL) TAB PO ONE (13:00)
--- NOTE | 2019-06-12 13:00 | NUR ---
THIS NURSE NOTIFIED DR HOOVER PT HEART RATE WENT FROM 70S-80S TO 120-130. PT IS ASYMPTOMATIC. PT SBP HAS BEEN 110-120. EKG OBTAINED. NURSE FAXED RESULTS TO DR HOOVER'S OFFICE. ORDERS WRITTEN DOWN AND REPEATED BACK TO DR HOOVER. WILL CONTINUE TO MONITOR.
--- NOTE | 2019-06-12 13:23 | Progress Note - Cardiology ---
Cardiology SOAP Progress Note Subjective: Communication difficult due to expressive dysphasia Does not report cp or palp or syncope Does not report shortness of breath at rest Does not report n/v/d Has weakness and malaise Objective: I&O/Vital Signs 06/12/19 06/12/19 06/12/19 06/12/19 01:44 01:44 02:00 03:00 Pulse 70 76 73 Resp 31 B/P (MAP) 124/68 (86) 104/70 (81) Pulse Ox 93 95 95 O2 Delivery NIV Bilevel NIV Bilevel NIV Bilevel O2 Flow Rate 30.00 30.00 30.00 30.00 06/12/19 06/12/19 06/12/19 06/12/19 03:19 04:00 04:00 05:00 Temp 36.9 Pulse 75 67 Resp 24 B/P (MAP) 130/69 (89) 104/57 (73) Pulse Ox 94 95 O2 Delivery NIV Bilevel NIV Bilevel NIV Bilevel NIV Bilevel O2 Flow Rate 25.00 25.00 25.00 FiO2 25 06/12/19 06/12/19 06/12/19 06/12/19 06:00 06:37 07:00 07:00 Pulse 72 71 78 Resp 26 B/P (MAP) 116/73 (87) 129/65 (86) Pulse Ox 98 99 O2 Delivery NIV Bilevel Nasal Cannula Nasal Cannula O2 Flow Rate 25.00 2.00 2.00 06/12/19 06/12/19 06/12/19 06/12/19 07:16 08:00 08:00 09:00 Temp 36.6 Pulse 85 75 Resp 14 21 B/P (MAP) 137/68 (91) 112/58 (76) Pulse Ox 92 97 91 O2 Delivery Nasal Cannula Nasal Cannula Nasal Cannula O2 Flow Rate 2.00 2.00 2.00 06/12/19 06/12/19 06/12/19 06/12/19 10:00 11:00 11:58 12:00 Pulse 73 70 76 Resp 16 13 16 B/P (MAP) 124/66 (85) 108/57 (74) 133/98 (110) Pulse Ox 95 92 100 O2 Delivery Nasal Cannula Nasal Cannula Nasal Cannula Nasal Cannula O2 Flow Rate 2.00 2.00 2.00 2.00 06/12/19 06/12/19 12:52 13:00 Pulse 81 125 Resp 28 B/P (MAP) 109/61 (77) Pulse Ox 93 O2 Delivery Nasal Cannula O2 Flow Rate 2.00 06/12/19 00:00 Intake Total 50 ml Output Total 850 ml Balance -800 ml Weight (Pounds): 194 Weight (Calculated Kilograms): 87.695453 Constitutional: AAO x 3, well-developed, well-nourished Respiratory: No accessory muscle use; other (fair to good bilat air entry, somewhat prolonged exp) Cardiovascular: regular rate-rhythm, S1 and S2, systolic murmur (soft STACEY at card base) Gastrointestional: No tender; soft; No guarding, No rebound; audible bowel sounds Extremities: No clubbing, No cyanosis, No significant edema Neurologic/Psychiatric: oriented x 3, other (expressive dysphasia; seems to move all of his limbs equally) Skin: No rash, No ulcerations Results/Procedures: Labs Laboratory Tests 06/11/19 20:49: Blood Gas Puncture Site LEFT RADIAL, Blood Gas Patient Temperature 35.9, [place]ia rial Blood pH 7.43, Arterial Blood Partial Pressure CO2 33L, Arterial Blood Partial Pressure O2 49L, Arterial Blood HCO3 22L, Arterial Blood Total CO2 22.9, Arterial Blood Oxygen Saturation 83L, Arterial Blood Base Excess -2.0, Reagan Test YES-POS, Blood Gas Ventilator Setting NO, Blood Gas Inspired Oxygen 10L 06/11/19 21:00: White Blood Count 20.7H, Red Blood Count 3.93L, Hemoglobin 12.0L, Hematocrit 37L , Mean Corpuscular Volume 95, Mean Corpuscular Hemoglobin 31, Mean Corpuscular Hemoglobin Concent 32, Red Cell Distribution Width 13.3, Platelet Count 411H, Mean Platelet Volume 9.7, Neutrophils (%) (Auto) 81H, Lymphocytes (%) (Auto) 13, Monocytes (%) (Auto) 6, Eosinophils (%) (Auto) 1, Basophils (%) (Auto) 0, Neutrophils # (Auto) 16.7H, Lymphocytes # (Auto) 2.6, Monocytes # (Auto) 1.2H, Eosinophils # (Auto) 0.1, Basophils # (Auto) 0.1, Prothrombin Time 14.8H, INR Comment 1.1, Sodium Level 134L, Potassium Level 5.2H, Chloride Level 100, Carbon Dioxide Level 19L, Anion Gap 15H, Blood Urea Nitrogen 12, Creatinine 1.31H, Estimat Glomerular Filtration Rate 53, BUN/Creatinine Ratio 9, Glucose Level 1 56H, Calcium Level 8.4L, Corrected Calcium 9.0, Phosphorus Level 2.6, Magnesium Level 1.9, Total Bilirubin 0.4, Aspartate Amino Transf (AST/SGOT) 44H, Alanine Aminotransferase (ALT/SGPT) 15, Alkaline Phosphatase 61, Total Protein 8.0, Albumin 3.2 06/11/19 22:00: Lactic Acid Level 2.77*H, Procalcitonin 0.16H 06/11/19 22:04: 06/11/19 23:32: Blood Gas Puncture Site LEFT RADIAL, Blood Gas Patient Temperature 36.0, Arterial Blood pH 7.45H, Arterial Blood Partial Pressure CO2 32L, Arterial Blood Partial Pressure O2 299H, Arterial Blood HCO3 23, Arterial Blood Total CO2 23.5, Arterial Blood Oxygen Saturation 100, Arterial Blood Base Excess -1.1, Reagan Test YES-POS, Blood Gas Ventilator Setting NO, Blood Gas Inspired Oxygen 100% 06/12/19 00:02: Lactic Acid Level 2.26*H 06/12/19 02:45: Lactic Acid Level 2.57*H, White Blood Count 16.7H, Red Blood Count 3.53L, Hemoglobin 10.9L, Hematocrit 33L, Mean Corpuscular Volume 95, Mean Corpuscular Hemoglobin 31, Mean Corpuscular Hemoglobin Concent 33, Red Cell Distribution Width 13.0, Platelet Count 343, Mean Platelet Volume 9.5, Neutrophils (%) (Auto) 87H, Lymphocytes (%) (Auto) 7L, Monocytes (%) (Auto) 6, Eosinophils (%) (Auto) 0, Basophils (%) (Auto) 0, Neutrophils # (Auto) 14.6H, Lymphocytes # (Auto) 1.1, Monocytes # (Auto) 1.0, Eosinophils # (Auto) 0.0, Basophils # (Auto) 0.0, Sodium Level 137, Potassium Level 3.7, Chloride Level 100, Carbon Dioxide Level 23, Anion Gap 14, Blood Urea Nitrogen 13, Creatinine 1.38H, Estimat Glomerular Filtration Rate 49, BUN/Creatinine Ratio 9, Glucose Level 145H, Calcium Level 8.5, Phosphorus Level 2.8, Magnesium Level 1.7, B-Type Natriuretic Peptide 1404.5H, Triglycerides Level 122, Cholesterol Level 199, LDL Cholesterol Direct 162H, VLDL Cholesterol 24, HDL Cholesterol 29L 06/12/19 05:21: Lactic Acid Level 1.32 06/12/19 05:55: Urine Color YELLOW, Urine Clarity CLEAR, Urine pH 5.0, Urine Specific [place] 1.015L, Urine Protein NEGATIVE, Urine Glucose (UA) NEGATIVE, Urine Ketones NEGATIVE, Urine Nitrite NEGATIVE, Urine Bilirubin NEGATIVE, Urine Urobilinogen 0.2, Urine Leukocyte Esterase 1+H, Urine RBC (Auto) 2+H, Urine RBC 10-25H, Urine WBC 10-25H, Urine Squamous Epithelial Cells 2-5, Urine Crystals NONE, Urine Bacteria FEWH, Urine Casts PRESENT, Urine Hyaline Casts 2-5H, Urine Mucus MOD ERATEH, Urine Culture Indicated YES Microbiology 06/11/19 Influenza Types A,B Antigen (ARMIDA) - Final, Complete Laboratory Tests 06/11/19 11:55 06/11/19 21:00 06/12/19 02:45 A/P: Assessment: Ac NSTEMI. Card cath of 06/11/19: multivessel coronary artery disease consisting of diffuse moderate disease in the left anterior descending, including a 70% stenosis in its distal portion, 60% to 70% ostial stenosis of ramus intermedius, 99 to 100% stenosis of the proximal left circumflex, 70 to 80% stenosis of the proximal right coronary and distal occlusion of the right coronary. Impairment of global left ventricular systolic function with an ejection fraction of 50%. Posterior basal akinesis. 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 Marie's history and cath findings. Dr Snyder saw Mr Marie's coronary angio. His opinion is that Mr Marie is not a good candidate for bypass surgery * We are trying to maximize meds. We will then consider PCI to ostial RI and distal LAD * I discussed his CV issues with him and his family (including his daughter) Clinical Quality Measures AMI/AHF: ASA po Prior to arrival: CHRISTINE Beard MD FACP FAC CCDS Jun 12, 2019 13:23
--- NOTE | 2019-06-12 13:28 | Diagnostic Imaging Report ---
INDICATION: Shortness of breath. TIME OF EXAM: 1:15 p.m. Correlation is made with prior chest from earlier the same day. Extensive infiltrate throughout the left lung persists. Right lung is clear. There is no effusion or pneumothorax. Heart size is normal. IMPRESSION: Diffuse left-sided infiltrate, stable since earlier the same day. Dictated by: Dictated on workstation # [id number]
[2019-06-12] MEDS ORDERED: MAGNESIUM 1 GM/100 ML IVPB 100 ML IV ONE (13:30)
[2019-06-12] MEDS: CEFEPIME INJECTION 1,000 MG in WATER (STERILE) FOR INJECTION 10 ML IV SCH ×2 (14:30→22:02)
--- NOTE | 2019-06-12 14:59 | NUR ---
CM/SS: Visited with pt and family as to the plan for discharge as per consult Plan: It is undetermined at this time the plan for pt at discharge Summary: This worker visited with family as to the plan for pt at time of discharge. They report pt should no longer be living at home, and he needs to be in an assisted living. Pt is not open at this time per family to go to a facility. Family is given information about skilled placement and it is verified that pt does have Medicare, the [facility]heet[facility]. They feel as if pt would need to go somewhere as he has been home and had home care ([facility]) but did not want the physical therapist to come anymore. Pt is fearful that people will steal from him if they are in the home to help him. Pt's daughter has been calling the [facility] and trying to obtain information as to options for pt. Family live in [facility] and [facility]. Daughter who is following up with [facility] will fly in late today. This worker will plan to see the pt and family tomorrow and determine plan for discharge for pt.
--- NOTE | 2019-06-12 15:40 | NUR ---
THIS NURSE NOTIFIED DR CLEMENT PT HAS BEEN SALINE LOCKED SINCE THIS MORNING, BUT FLUIDS ARE STILL ORDERED ON EMAR. DR CLEMENT ORDER FLUIDS TO RUN AT 30 ML/HR.
--- NOTE | 2019-06-12 15:43 | NUR ---
THIS NURSE NOTIFIED DR MALDONADO PT FLAGGED SEPSIS DUE TO TACHYCARDIA AND ELEVATED WBC. SEPSIS BUNDLE ORDERED THIS MORNING. NO NEW ORDERS AT THIS TIME. WILL CONTINUE TO MONITOR.
[2019-06-12] MEDS: meTOprolol 5 MG/5 ML (LOPRESSOR) VIAL IV SCH ×2 (16:16→20:29)
[2019-06-13] VITALS (22 sets, daily range): BP systolic 94–139; BP diastolic 56–96
[2019-06-13] MEDS: RT-ALBUTEROL/IPRATROPIUM 3 ML (DUONEB) VIAL INH SCH ×7 (02:00→23:22)
[2019-06-13 03:21] LABS: BASOPHILS % (AUTO) 0 % (0-10); EOSINOPHILS # (AUTO) 0.1 10^3/uL (0.0-0.3); EOSINOPHILS % (AUTO) 1 % (0-10); HEMATOCRIT 31 % (40-54); HEMOGLOBIN 10.1 G/DL (13.3-17.7); LYMPHOCYTES # (AUTO) 1.6 X 10^3 (1.0-4.0); LYMPHOCYTES % (AUTO) 14 % (12-44); MEAN CORPUSCULAR HEMOGLOBIN 31 PG (25-34); MEAN CORPUSCULAR HGB CONC 33 G/DL (32-36); MEAN CORPUSCULAR VOLUME 93 FL (80-99); MEAN PLATELET VOLUME 9.5 FL (7.4-10.4); MONOCYTES # (AUTO) 1.2 X 10^3 (0.0-1.0); MONOCYTES % (AUTO) 11 % (0-12); NEUTROPHILS # (AUTO) 8.3 X 10^3 (1.8-7.8); NEUTROPHILS % (AUTO) 74 % (42-75); PLATELET COUNT 283 10^3/uL (130-400); RED CELL DISTRIBUTION WIDTH 12.9 % (10.0-14.5); WHITE BLOOD COUNT 11.2 10^3/uL (4.3-11.0)
[2019-06-13 03:32] LABS: INR 1.3 (0.8-1.4); PROTHROMBIN TIME PATIENT 16.8 SEC (12.2-14.7)
[2019-06-13 03:48] LABS: CALCIUM 8.3 MG/DL (8.5-10.1); CREATININE SERUM 1.73 MG/DL (0.60-1.30); MAGNESIUM 2.3 MG/DL (1.6-2.4); POTASSIUM 2.9 MMOL/L (3.6-5.0)
[2019-06-13] MEDS: meTOprolol 5 MG/5 ML (LOPRESSOR) VIAL IV SCH ×7 (04:31→23:58)
--- NOTE | 2019-06-13 05:31 | Pulmonary Progress Note ---
Subjective Time Seen by a Provider: 08:15 Subjective/Events-last exam Pt is doing better Sepsis Event Evaluation Height, Weight, BMI Height: 5'11.00" Weight: 194lbs. oz. 87.401576gz; 26.47 BMI Method:Stated Focused Exam Lactate Level 06/12/19 00:02: Lactic Acid Level 2.26*H 06/12/19 02:45: Lactic Acid Level 2.57*H 06/12/19 05:21: Lactic Acid Level 1.32 Exam Exam Vital Signs Date Time Temp Pulse Resp B/P (MAP) Pulse Ox O2 Delivery O2 Flow Rate FiO2 06/13/19 04:00 Room Air 06/13/19 03:00 112 19 108/70 (83) 91 Nasal Cannula 2.00 06/13/19 02:00 114 30 113/68 (83) 95 Nasal Cannula 2.00 06/13/19 02:00 93 Room Air 06/13/19 01:00 114 06/13/19 01:00 114 25 108/69 (82) 94 Nasal Cannula 2.00 06/13/19 00:00 36.4 06/13/19 00:00 114 14 94/56 (69) 91 Nasal Cannula 2.00 06/13/19 00:00 Room Air 06/12/19 23:00 115 23 95/59 (71) 92 Nasal Cannula 2.00 06/12/19 22:00 115 28 114/72 (86) 97 Nasal Cannula 2.00 06/12/19 21:59 92 Room Air 06/12/19 21:00 117 28 90/60 (70) 95 Nasal Cannula 2.00 06/12/19 20:00 Room Air 06/12/19 20:00 118 16 106/77 (87) 97 Nasal Cannula 2.00 06/12/19 19:56 37.3 06/12/19 19:00 120 06/12/19 19:00 109 20 95/70 (78) 95 Nasal Cannula 2.00 06/12/19 18:00 116 20 98/65 (76) 94 Nasal Cannula 2.00 06/12/19 17:00 82 12 125/80 (95) 97 Nasal Cannula 2.00 06/12/19 16:00 112 28 114/73 (87) 95 Nasal Cannula 2.00 06/12/19 16:00 37.0 06/12/19 16:00 92 Room Air 06/12/19 15:00 122 29 101/69 (80) 95 Nasal Cannula 2.00 06/12/19 14:00 77 25 105/59 (74) 98 Nasal Cannula 2.00 06/12/19 13:00 125 28 109/61 (77) 93 Nasal Cannula 2.00 06/12/19 12:52 81 06/12/19 12:00 76 16 133/98 (110) 100 Nasal Cannula 2.00 06/12/19 11:58 92 Nasal Cannula 2.00 06/12/19 11:00 70 13 108/57 (74) Nasal Cannula 2.00 06/12/19 10:00 73 16 124/66 (85) 95 Nasal Cannula 2.00 06/12/19 09:00 75 21 112/58 (76) 91 Nasal Cannula 2.00 06/12/19 08:00 85 14 137/68 (91) 97 Nasal Cannula 2.00 06/12/19 08:00 92 Nasal Cannula 2.00 06/12/19 07:16 36.6 06/12/19 07:00 78 06/12/19 07:00 71 26 129/65 (86) 99 Nasal Cannula 2.00 06/12/19 06:37 Nasal Cannula 2.00 06/12/19 06:00 72 116/73 (87) 98 NIV Bilevel 25.00 I & O 06/13/19 07:00 Intake Total 1750 ml Output Total 1940 ml Balance -190 ml Height & Weight Height: 5'11.00" Weight: 194lbs. oz. 87.185622ir; 26.47 BMI Method:Stated General Appearance: No Apparent Distress, Chronically ill, Thin HEENT: Moist Mucous Membranes; No Scleral Icterus (L), No Scleral Icterus (R) Neck: Supple; No JVD Respiratory: No Accessory Muscle Use, No Respiratory Distress, Decreased Breath Sounds, Other (on oxygen) Cardiovascular: Regular Rate, Rhythm, No Murmur Capillary Refill: Less Than 3 Seconds Extremity: No Calf Tenderness, No Pedal Edema Neurologic/Psychiatric: Alert, Aphasia, Other (appears oriented to person and place and mostly to situation but some difficulty assesing due to baseline expressive aphasia) Skin: Normal Color, Warm/Dry Results Lab Laboratory Tests 06/11/19 11:55 06/11/19 21:00 2/26/20 02:45 06/13/19 02:58 Assessment/Plan Assessment/Plan Acute respiratory failure -CXR shows acute L>R infiltrates - Duoneb Acute pneumonia with leukocytosis and lactic acidosis with sepsis -Larkin cultures pending -RVP pending -Influenza is negative -MRSA pending -\\ azithromycin and Cefepime for now and await cultures -cath EF is 50% and no diastolic dysfunction. Metabolic lactic acidosis -Monitor DM II CKD Anemia -Monitor KIA CLEMENT DO Jun 13, 2019 05:31
[2019-06-13] MEDS: CEFEPIME INJECTION 1,000 MG in WATER (STERILE) FOR INJECTION 10 ML IV SCH ×3 (05:54→22:00)
[2019-06-13 06:26] LABS: ALBUMIN 3.1 GM/DL (3.2-4.5); BILIRUBIN,TOTAL 0.5 MG/DL (0.1-1.0); CALCIUM 8.1 MG/DL (8.5-10.1); CREATININE SERUM 1.53 MG/DL (0.60-1.30); TOTAL PROTEIN 6.5 GM/DL (6.4-8.2)
[2019-06-13] MEDS ORDERED: LIDOCAINE 1% INJ 20 ML 20 ML VIAL ONE (06:35)
[2019-06-13] MEDS ORDERED: HEParin (CATH LAB) 0 ML IV ONE (06:35)
--- NOTE | 2019-06-13 07:28 | Diagnostic Imaging Report ---
INDICATION: Respiratory distress COMPARISON: 06/12/2019 TECHNIQUE: Single radiograph of the chest dated 06/13/2019. FINDINGS: [place] right curvature of the spine is again noted. The cardiac silhouette is prominent, though stable. Extensive opacities throughout the left lung are again identified, appearing stable from the prior examination. Right lung remains clear. No pleural effusion. No pneumothorax. No acute osseous abnormality. IMPRESSION: Similar-appearing examination demonstrating extensive opacities throughout the left lung. Dictated by: Dictated on workstation # [id number]
[2019-06-13] MEDS: MAGNESIUM 1 GM/100 ML IVPB 100 ML IV SCH (07:47)
[2019-06-13] MEDS: KCL 20 MEQ TAB (K-DUR) PO SCH (07:47)
[2019-06-13] MEDS ORDERED: POTASSIUM CL 10MEQ/50ML IVPB 50 ML IV ONE (08:00)
[2019-06-13] MEDS: POTASSIUM CL 10MEQ/50ML IVPB 50 ML IV SCH ×6 (08:07→12:42)
[2019-06-13] MEDS: AZITHROMYCIN INJECTION 250 MG in NS (IVPB) 250 ML IV SCH (08:22)
--- NOTE | 2019-06-13 10:10 | Progress Note - Hospitalist ---
Subjective HPI/CC On Admission Date Seen by Provider: Jun 13, 2019 Time Seen by Provider: 10:03 Subjective/Events-last exam Pt reports feeling crummy all over. Is unable to be more specific. Repeatedly says "Just forget it" when asked to clraify his symptoms. I attempted to discuss code status but he answers no irrespective of what question he is being asked. Focused Exam Lactate Level 06/12/19 00:02: Lactic Acid Level 2.26*H 06/12/19 02:45: Lactic Acid Level 2.57*H 06/12/19 05:21: Lactic Acid Level 1.32 Objective Exam Vital Signs Vital Signs Date Time Temp Pulse Resp B/P (MAP) Pulse Ox O2 Delivery O2 Flow Rate FiO2 06/13/19 09:00 116 32 107/73 (84) 94 Nasal Cannula 2.00 06/13/19 00:00 36.4 06/12/19 04:00 25 Capillary Refill : Less Than 3 Seconds General Appearance: No Apparent Distress, Chronically ill, Thin Respiratory: Lungs Clear, No Respiratory Distress Cardiovascular: Regular Rate, Rhythm, No Murmur Gastrointestinal: Normal Bowel Sounds, Non Tender, Soft Extremity: No Pedal Edema Neurologic/Psychiatric: Alert, Other (oriented to person and place) Results/Procedures Lab Laboratory Tests 06/13/19 02:58 06/13/19 05:58 Patient resulted labs reviewed. Imaging: Reviewed Imaging Report Assessment/Plan Assessment and Plan Assess & Plan/Chief Complaint NSTEMI Multivessel severe CAD - Cardiac cath done on admission showed significant multivessel disease - he is not a candidate for CABG per Dr Hutchins who reviewed the case with CTS at [facility] - Plan for repeat cath today for staged intervention - Continue DAPT with ASA and Plavix - Statin - Nitro and morphine prn Acute hypoxic respiratory failure- multifactorial - BNP elevated and pt had interval development of left lung infiltrates - Continue Cefepime and Azithromycin - Cultures with NGTD - Pulmonology consulted - MAT protocol - Respiratory viral panel pending - Flu negative - O2 and bipap prn- currently on 2lpm NC CKD stage II - Creatinine slightly improved today - Trend and hold nephrotoxic drugs as able as he will get more contrast today for cath Non insulin dependent type II diabetes - Sliding scale insulin Diagnosis/Problems Diagnosis/Problems (1) CAD (coronary artery disease) Status: Acute Qualifiers: Coronary Disease-Associated Artery/Lesion type: [place] artery [place] vs. transplanted heart: [place] heart Associated angina: with stable angina Qualified Codes: I25.118 - Atherosclerotic heart disease of [place] coronary artery with other forms of angina pectoris (2) NSTEMI (non-ST elevated myocardial infarction) Status: Acute (3) Acute respiratory failure Status: Acute Qualifiers: Respiratory failure complication: hypoxia Qualified Codes: J96.01 - Acute respiratory failure with hypoxia (4) CKD (chronic kidney disease) Status: Chronic Qualifiers: Chronic kidney disease stage: stage 3 (moderate) Qualified Codes: N18.3 - Chronic kidney disease, stage 3 (moderate) (5) Non-insulin dependent type 2 diabetes mellitus Status: Chronic (6) Normocytic anemia (7) Severe sepsis Status: Acute (8) Hyperlipidemia Status: Chronic Qualifiers: Hyperlipidemia type: mixed hyperlipidemia Qualified Codes: E78.2 - Mixed hyperlipidemia (9) Essential (primary) hypertension Status: Chronic (10) Brain aneurysm Status: Chronic (11) History of stroke with residual deficit Status: Chronic (12) Expressive aphasia Clinical Quality Measures AMI/AHF: ASA po Prior to arrival: No DVT/VTE Risk/Contraindication: Risk Factor Score Per Nursin RFS Level Per Nursing on Admit: 4+=Very High ANISHA MALDONADO MD Jun 13, 2019 10:10
[2019-06-13] MEDS: CLOPIDOGREL 75 MG (PLAVIX) TABLET PO SCH (10:21)
[2019-06-13] MEDS: ASPIRIN 81 MG CHEW (CHILDREN'S ASA) PO SCH (10:21)
[2019-06-13] MEDS: meTOproloL SUCCINATE 50 MG (TOPROL XL) TAB PO SCH (10:29)
--- NOTE | 2019-06-13 10:50 | NUR ---
Pastoral care visit, visited with pts daughters at bedside, offered support.
--- NOTE | 2019-06-13 12:05 | NUR ---
CM/SS: Visited with family as to plan for discharge Plan: Family would like pt to go to [facility] for skilled placement until further arrangements can be made for pt long range through the [facility]. Summary: Placement options discussed with family and they request pt to go to [facility] for a skilled stay and correction plans through the [facility] can be made for pt. Family have a copy of pt's medicare card. They can provide it to the facility if needed. Process explained for referral and acceptance. Family (2 daughters; Pretty, and Kimberly) Pretty from [facility] [phone], Kimberly [place] from [place] [phone]. They express the rest of the family is ok with the plan. Referral sent to [facility].
--- NOTE | 2019-06-13 14:01 | NUR ---
PALLIATIVE CARE RN in to see patient at the request of Dr. Villalta. Patient is making statements of not wanting to do any of this and is just wanting to go home. I attempted to talk to the patient. He is not wanting to talk and dismissed this RN. I spoke to the daughter/DPOA, Kimberly, and discussed discharge plan and made her aware that I was working closely with doctor and SW. She is very aware hat her father may decline in his health. She knows that they may not be able to place the stents as they have been unsuccessful in the past. Hospice was discussed and she understands how hospice works due to having with another family member who had it. This RN will continue to follow and offer assist as needed.
[2019-06-13 15:51] LABS: PARAINFLU 1 PCR Not Detected (Not Detected); PARAINFLU 2 PCR Not Detected (Not Detected); RSV PCR TEST Not Detected (Not Detected)
--- NOTE | 2019-06-13 15:57 | NUR ---
CM/SS: Visited with pt and family as to plan for discharge Plan: [facility] has accepted pt for skilled placement. If pt continues to decline family would like hospice and comfort measures, with pt remaining here at the hospital or be moved to [place] for end of life care. Summary: Pt's Medicare number is [id number] - this information is provided to the family. This information is also provided to [facility]. Pt has declined from yesterday. Family notified that Dr will not be completing the heart cath. Family has indicated that they do not want the heart procedure done and they want pt to be comfortable. Family requested that pt be DNR. Dr Villalta is notified of their request. Options discussed with family. Pt to go to [facility] on skilled bed, Pt to go to [facility] on hospice with comfort care, or Pt to remain in hospital to pass - comfort measures. Family are ok at this time and will see how the night goes and will determine best plan after talking with physician in the morning. Family realistic and all seems to have the same goal for pt. For pt to be comfortable and to have a peaceful passing. Family educated on Medicare hospice benefit, and room and board cost at the facility. Daughter Kimberly to contact [place] and determine if they are able to pay room and board for long term care phlebotomist care facility. This worker will follow up with family on tomorrow.
--- NOTE | 2019-06-13 18:27 | Progress Note - Cardiology ---
Cardiology SOAP Progress Note Subjective: Does not report cp or palp or syncope or shortness of breath Does not report focal weakness or n/v/d Objective: I&O/Vital Signs 06/13/19 06/13/19 06/13/19 06/13/19 07:00 07:00 08:00 08:00 Pulse 113 114 115 Resp 29 B/P (MAP) 111/70 (84) 126/70 (88) Pulse Ox 93 94 O2 Delivery Nasal Cannula Room Air Nasal Cannula O2 Flow Rate 2.00 2.00 06/13/19 06/13/19 06/13/19 06/13/19 09:00 10:00 11:00 12:00 Pulse 116 116 116 117 Resp 32 33 25 32 B/P (MAP) 107/73 (84) 112/68 (83) 113/83 (93) 120/96 (104) Pulse Ox 94 90 91 91 O2 Delivery Nasal Cannula Nasal Cannula Nasal Cannula Nasal Cannula O2 Flow Rate 2.00 2.00 2.00 2.00 06/13/19 06/13/19 06/13/19 06/13/19 12:00 12:28 13:00 14:00 Pulse 118 117 117 Resp 30 35 B/P (MAP) 112/70 (84) 108/72 (84) Pulse Ox 90 90 O2 Delivery Room Air Nasal Cannula Nasal Cannula O2 Flow Rate 2.00 2.00 06/13/19 06/13/19 06/13/19 06/13/19 15:00 15:15 16:00 16:00 Temp 36.6 Pulse 80 116 Resp 34 13 B/P (MAP) 128/68 (88) 117/73 (88) Pulse Ox 91 91 O2 Delivery Nasal Cannula Nasal Cannula Room Air O2 Flow Rate 2.00 2.00 06/13/19 00:00 Intake Total 1120 ml Output Total 1000 ml Balance 120 ml Weight (Pounds): 194 Weight (Calculated Kilograms): 87.736679 Constitutional: No AAO x 3 (Appears oriented at times, but is intermittently confused); well-developed, well-nourished Respiratory: No accessory muscle use; other (fair to good bilat air entry, somewhat prolonged exp) Cardiovascular: regular rate-rhythm, S1 and S2, systolic murmur (soft STACEY at card base) Gastrointestional: No tender; soft; No guarding, No rebound; audible bowel soun ds Extremities: No clubbing, No cyanosis, No significant edema Neurologic/Psychiatric: oriented x 3 (Appears oriented at times, but is intermittently confused), other (expressive dysphasia; seems to move all of his limbs equally) Skin: No rash, No ulcerations Results/Procedures: Labs Laboratory Tests 06/13/19 02:58: White Blood Count 11.2H, Red Blood Count 3.30L, Hemoglobin 10.1L, Hematocrit 31L , Mean Corpuscular Volume 93, Mean Corpuscular Hemoglobin 31, Mean Corpuscular Hemoglobin Concent 33, Red Cell Distribution Width 12.9, Platelet Count 283, Mean Platelet Volume 9.5, Neutrophils (%) (Auto) 74, Lymphocytes (%) (Auto) 14, Monocytes (%) (Auto) 11, Eosinophils (%) (Auto) 1, Basophils (%) (Auto) 0, Neutrophils # (Auto) 8.3H, Lymphocytes # (Auto) 1.6, Monocytes # (Auto) 1.2H, Eosinophils # (Auto) 0.1, Basophils # (Auto) 0.0, Prothrombin Time 16.8H, INR Comment 1.3, Activated Partial Thromboplast Time 44H, Sodium Level 140, Potass ium Level 2.9L, Chloride Level 103, Carbon Dioxide Level 25, Anion Gap 12, Blood Urea Nitrogen 21H, Creatinine 1.73H, Estimat Glomerular Filtration Rate 38, BUN/Creatinine Ratio 12, Glucose Level 136H, Calcium Level 8.3L, Phosphorus Level 3.0, Magnesium Level 2.3 06/13/19 05:58: Sodium Level 139, Potassium Level 3.0L, Chloride Level 104, Carbon Dioxide Level 24, Anion Gap 11, Blood Urea Nitrogen 21H, Creatinine 1.53H, Estimat Glomerular Filtration Rate 44, BUN/Creatinine Ratio 14, Glucose Level 128H, Calcium Level 8.1L, Corrected Calcium 8.8, Total Bilirubin 0.5, Aspartate Amino Transf (AST/SGOT) 18, Alanine Aminotransferase (ALT/SGPT) 10, Alkaline Phosphatase 49, B-Type Natriuretic Peptide 2205.8H, Total Protein 6.5, Albumin 3.1L 06/13/19 16:30: Potassium Level 3.6 Microbiology 06/12/19 Urine Culture - Final, Complete NO GROWTH 06/11/19 Blood Culture - Preliminary, Resulted No growth 06/11/19 MRSA Screen - Final, Complete MRSA not isolated Laboratory Tests 06/11/19 21:00 06/12/19 02:45 06/13/19 02:58 06/13/19 05:58 06/13/19 16:30 A/P: Assessment: Ac NSTEMI. Card cath of 06/11/19: multivessel coronary artery disease consisting of diffuse moderate disease in the left anterior descending, including a 70% stenosis in its distal portion, 60% to 70% ostial stenosis of ramus intermedius, 99 to 100% stenosis of the proximal left circumflex, 70 to 80% stenosis of the proximal right coronary and distal occlusion of the right coronary. Impairment of global left ventricular systolic function with an ejection fraction of 50%. Posterior basal akinesis. 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 Marie's history and cath findings. Dr Snyder saw Mr Marie's coronary angio. His opinion is that Mr Marie is not a good candidate for bypass surgery * Today, I discussed his case with Dr Villalta of the Hospitalist [facility] * We have been trying to maximize meds. Today, the plan was to consider further PCI, but plan was changed because of increasing confusion on patient's part. This evening, I discussed his issues with him and his family. His family says that the current mental status is his usual baseline. We will regroup in the am to reconsider further mechanical coronary intervention Clinical Quality Measures AMI/AHF: ASA po Prior to arrival: CHRISTINE Beard MD FACP FAC CCDS Jun 13, 2019 18:27
[2019-06-13] MEDS: NS IV 1000 ML 1,000 ML IV SCH (20:12)
--- NOTE | 2019-06-13 22:02 | NUR ---
E-ICU CONTACTED DUE TO URINE OUTPUT OF 75ML IN 4HR. AWAITING ORDERS AT THIS TIME.
[2019-06-13] MEDS ORDERED: NS IV 500 ML 500 ML IV SCH (22:30)
[2019-06-13] MEDS ORDERED: NS IV 500 ML 500 ML IV ONE (22:30)
[2019-06-14] VITALS (27 sets, daily range): BP systolic 94–141; BP diastolic 53–102
[2019-06-14] MEDS: RT-ALBUTEROL/IPRATROPIUM 3 ML (DUONEB) VIAL INH SCH ×6 (02:25→22:37)
[2019-06-14] MEDS: NS IV 1000 ML 1,000 ML IV SCH (03:10)
[2019-06-14 03:42] LABS: BASOPHILS % (AUTO) 0 % (0-10); EOSINOPHILS % (AUTO) 0 % (0-10); HEMATOCRIT 31 % (40-54); HEMOGLOBIN 10.2 G/DL (13.3-17.7); LYMPHOCYTES # (AUTO) 1.4 X 10^3 (1.0-4.0); LYMPHOCYTES % (AUTO) 9 % (12-44); MEAN CORPUSCULAR HEMOGLOBIN 30 PG (25-34); MEAN CORPUSCULAR HGB CONC 33 G/DL (32-36); MEAN CORPUSCULAR VOLUME 94 FL (80-99); MEAN PLATELET VOLUME 10.2 FL (7.4-10.4); MONOCYTES # (AUTO) 1.1 X 10^3 (0.0-1.0); MONOCYTES % (AUTO) 8 % (0-12); NEUTROPHILS # (AUTO) 12.1 X 10^3 (1.8-7.8); NEUTROPHILS % (AUTO) 83 % (42-75); PLATELET COUNT 287 10^3/uL (130-400); RED CELL DISTRIBUTION WIDTH 13.4 % (10.0-14.5); WHITE BLOOD COUNT 14.6 10^3/uL (4.3-11.0)
[2019-06-14] MEDS: meTOprolol 5 MG/5 ML (LOPRESSOR) VIAL IV SCH ×5 (03:50→21:02)
[2019-06-14 04:11] LABS: CALCIUM 8.3 MG/DL (8.5-10.1); CREATININE SERUM 1.37 MG/DL (0.60-1.30); PHOSPHORUS 2.5 MG/DL (2.3-4.7); POTASSIUM 3.7 MMOL/L (3.6-5.0)
[2019-06-14] MEDS: KCL 20 MEQ TAB (K-DUR) PO SCH (04:16)
[2019-06-14] MEDS: MAGNESIUM 1 GM/100 ML IVPB 100 ML IV SCH (04:16)
[2019-06-14] MEDS: POTASSIUM CL 10MEQ/50ML IVPB 50 ML IV SCH (04:16)
[2019-06-14 04:44] LABS: LYMPHOCYTES % (MANUAL) 9 %; MONOCYTES % (MANUAL) 5 %; NEUTROPHILS % (MANUAL) 86 %; RBC MORPH NORMAL
--- NOTE | 2019-06-14 05:15 | Pulmonary Progress Note ---
Subjective Time Seen by a Provider: 05:15 Subjective/Events-last exam Pt had decreased UO last night Sepsis Event Evaluation Height, Weight, BMI Height: 5'11.00" Weight: 194lbs. oz. 87.082233vv; 26.47 BMI Method:Stated Focused Exam Lactate Level 06/12/19 00:02: Lactic Acid Level 2.26*H 06/12/19 02:45: Lactic Acid Level 2.57*H 06/12/19 05:21: Lactic Acid Level 1.32 Exam Exam Vital Signs Date Time Temp Pulse Resp B/P (MAP) Pulse Ox O2 Delivery O2 Flow Rate FiO2 06/14/19 04:00 115 33 104/67 (79) 96 Nasal Cannula 2.00 06/14/19 03:31 Nasal Cannula 4.00 06/14/19 03:30 36.5 06/14/19 03:10 Nasal Cannula 2.00 06/14/19 03:00 118 29 123/85 (98) 98 Nasal Cannula 4.00 06/14/19 02:00 118 28 113/77 (89) 97 Nasal Cannula 4.00 06/14/19 01:00 106 06/14/19 01:00 98 31 104/68 (80) 97 Nasal Cannula 4.00 06/14/19 00:00 84 32 101/74 (83) 96 Nasal Cannula 4.00 06/13/19 23:24 Nasal Cannula 4.00 06/13/19 23:23 36.1 06/13/19 23:22 87 Nasal Cannula 2.00 06/13/19 23:21 Nasal Cannula 4.00 06/13/19 23:00 117 21 93 Nasal Cannula 2.00 06/13/19 22:00 109 21 125/83 (97) 95 Nasal Cannula 2.00 06/13/19 21:28 Room Air 06/13/19 21:00 81 33 124/64 (84) 88 Nasal Cannula 2.00 06/13/19 20:00 Room Air 06/13/19 20:00 104 23 110/72 (85) 93 Nasal Cannula 2.00 06/13/19 19:11 37.7 06/13/19 19:00 110 29 113/88 (96) 89 Nasal Cannula 2.00 06/13/19 19:00 112 06/13/19 18:00 112 39 120/77 (91) 93 Nasal Cannula 2.00 06/13/19 17:00 78 26 139/94 (109) 91 Nasal Cannula 2.00 06/13/19 16:00 Room Air 06/13/19 16:00 116 13 117/73 (88) 91 Nasal Cannula 2.00 06/13/19 15:15 36.6 06/13/19 15:00 80 34 128/68 (88) 91 Nasal Cannula 2.00 06/13/19 14:00 117 35 108/72 (84) 90 Nasal Cannula 2.00 06/13/19 13:00 117 30 112/70 (84) 90 Nasal Cannula 2.00 06/13/19 12:28 118 06/13/19 12:00 Room Air 06/13/19 12:00 117 32 120/96 (104) 91 Nasal Cannula 2.00 06/13/19 11:00 116 25 113/83 (93) 91 Nasal Cannula 2.00 06/13/19 10:00 116 33 112/68 (83) 90 Nasal Cannula 2.00 06/13/19 09:00 116 32 107/73 (84) 94 Nasal Cannula 2.00 06/13/19 08:00 115 126/70 (88) 94 Nasal Cannula 2.00 06/13/19 08:00 Room Air 06/13/19 07:00 114 06/13/19 07:00 113 29 111/70 (84) 93 Nasal Cannula 2.00 06/13/19 06:00 112 22 92 Nasal Cannula 2.00 I & O 06/14/19 06:59 Intake Total 2440 ml Output Total 820 ml Balance 1620 ml Height & Weight Height: 5'11.00" Weight: 194lbs. oz. 87.092311vh; 26.47 BMI Method:Stated General Appearance: No Apparent Distress, Chronically ill, Thin HEENT: Moist Mucous Membranes; No Scleral Icterus (L), No Scleral Icterus (R) Neck: Supple; No JVD Respiratory: Lungs Clear, No Respiratory Distress Cardiovascular: Regular Rate, Rhythm, No Murmur Capillary Refill: Less Than 3 Seconds Extremity: No Pedal Edema Neurologic/Psychiatric: Alert, Other (oriented to person and place) Skin: Normal Color, Warm/Dry Results Lab Laboratory Tests 06/13/19 02:58 06/13/19 05:58 06/13/19 16:30 06/14/19 03:00 Assessment/Plan Assessment/Plan Acute respiratory failure -Pt is only on 2 liters of oxygen however CXR shows worsening Left infiltrate. Pt also has worsening leukocytosis. He is not on steroids. -Pt is not able to produce a sputum -Start Bumex 1mg BID -MRSA swab is negative -He is currently on Cefepime and Azithromycin -Family is considering comfort care only per RN -Prognosis is poor. -CXR shows worsening acute L>R infiltrates - Duoneb Acute pneumonia with leukocytosis and lactic acidosis with sepsis -Larkin cultures neg thus far -RVP negative -Influenza is negative -MRSA pending -\\ azithromycin and Cefepime for now and await cultures Metabolic lactic acidosis -Monitor DM II CKD Anemia -Monitor KIA CLEMENT DO Jun 14, 2019 05:15
[2019-06-14] MEDS ORDERED: BUMETANIDE 1 MG/4 ML (BUMEX) VIAL ONE (05:32)
[2019-06-14] MEDS: BUMETANIDE 1 MG/4 ML (BUMEX) VIAL IV SCH ×3 (05:38→21:02)
[2019-06-14] MEDS: CEFEPIME INJECTION 1,000 MG in WATER (STERILE) FOR INJECTION 10 ML IV SCH ×3 (05:38→21:03)
--- NOTE | 2019-06-14 07:34 | Diagnostic Imaging Report ---
EXAMINATION: Portable erect AP chest at 3:15 AM INDICATION: Respiratory distress The heart size is stable when compared to the prior exam of 06/13/2019. The previous study did show an alveolar/interstitial infiltrate involving much of the left lung. That density is somewhat greater on this exam. There may also be a new area of slightly increased density in the right midlung. The mediastinum is not widened. The osseous structures are intact. IMPRESSION: The appearance of the chest has worsened somewhat since the prior study as the density in both lungs does seem somewhat greater. Most likely, this parenchymal density is due to pneumonia/atelectasis. A follow-up study would be recommended for continued evaluation. Dictated by: Dictated on workstation # [id number]
[2019-06-14] MEDS: CLOPIDOGREL 75 MG (PLAVIX) TABLET PO SCH (07:43)
[2019-06-14] MEDS: meTOproloL SUCCINATE 50 MG (TOPROL XL) TAB PO SCH (07:44)
[2019-06-14] MEDS: ASPIRIN 81 MG CHEW (CHILDREN'S ASA) PO SCH (07:44)
[2019-06-14] MEDS ORDERED: NS IV 1000 ML 1,000 ML ONE (08:46)
[2019-06-14] MEDS ORDERED: HEParin (CATH LAB) 2,000 ML IV ONE (08:46)
[2019-06-14] MEDS ORDERED: fentaNYL INJECTION 100 MCG/2 ML AMP ONE ×2 (08:46→12:11)
[2019-06-14] MEDS ORDERED: MIDAZOLAM 5 MG/5 ML (VERSED) VIAL ONE (08:46)
[2019-06-14] MEDS ORDERED: LIDOCAINE 1% INJ 20 ML 20 ML VIAL ONE (08:46)
[2019-06-14] MEDS: AZITHROMYCIN INJECTION 250 MG in NS (IVPB) 250 ML IV SCH (08:50)
--- NOTE | 2019-06-14 09:08 | Progress Note - Hospitalist ---
ASYA JAMES,MED STUDENT 06/14/19 0907: Subjective HPI/CC On Admission Date Seen by Provider: Jun 14, 2019 Time Seen by Provider: 08:45 Subjective/Events-last exam Patient just returned from cath. He reports that his breathing is better today. He denies chest pain, shortness of breath, palpitations, or abdominal pain. Per nursing, he has been more confused today but is pleasant and appears comfortable. He had no new complaints or concerns. Family at bedside. Focused Exam Lactate Level 06/12/19 00:02: Lactic Acid Level 2.26*H 06/12/19 02:45: Lactic Acid Level 2.57*H 06/12/19 05:21: Lactic Acid Level 1.32 Objective Exam Vital Signs Vital Signs Date Time Temp Pulse Resp B/P (MAP) Pulse Ox O2 Delivery O2 Flow Rate FiO2 06/14/19 09:00 111 43 117/75 (89) 90 Nasal Cannula 2.00 06/14/19 03:30 36.5 06/12/19 04:00 25 Capillary Refill : Less Than 3 Seconds General Appearance: No Apparent Distress, WD/WN HEENT: Pharynx Normal, Moist Mucous Membranes Neck: Non Tender, Supple Respiratory: Chest Non Tender, No Accessory Muscle Use, No Respiratory Distress, Decreased Breath Sounds Cardiovascular: Regular Rate, Rhythm, No Edema, No Murmur Gastrointestinal: Non Tender, Soft Skin: Normal Color, Warm/Dry Results/Procedures Lab Laboratory Tests 06/13/19 16:30 06/14/19 03:00 Patient resulted labs reviewed. Imaging: Reviewed Imaging Report Radiology CXR 06/14/19 IMPRESSION: The appearance of the chest has worsened somewhat since the prior study as the density in both lungs does seem somewhat greater. Most likely, this parenchymal density is due to pneumonia/atelectasis. A follow-up study would be recommended for continued evaluation. Assessment/Plan Assessment and Plan Assess & Plan/Chief Complaint CAD with NSTEMI - Cardiac cath done 06/12/19 showed significant multivessel disease. He is not a candidate for CABG so cardiology recommends proceeding with staged interventions and would like to take him back to lab tester. This was not done yesterday due to increasing confusion. Dr. Hutchins proceeded with cath today and placed 1 stent - Social work and palliative care also following for discharge planning, current plan is for placement at detention in [place] on Monday - Continue DAPT with aspirin and plavix - Nitro and morphine prn - Continue statin therapy Acute respiratory failure, multifactorial - likely due to acutely decompensated systolic heart failure and pneumonia - Elevated BNP and interval development of left lung infiltrates, appeared slightly worse today on repeat CXR - Continue azithromycin and cefepime - Continue bumetanide - MAT protocol - Pulmonology following - Pancultures with NGTD - Respiratory viral panel negative - Flu negative - O2 and bipap as needed CKD stage II - Creatinine appears near baseline today - Will hold nephrotoxic drugs as able due to possible cath today with contrast Non insulin dependent type II diabetes - Sliding scale insulin DVT prophylaxis - SCDs in place - Heparin given during cath today - Start lovenox tomorrow Clinical Quality Measures AMI/AHF: ASA po Prior to arrival: No DVT/VTE Risk/Contraindication: Risk Factor Score Per Nursin RFS Level Per Nursing on Admit: 4+=Very High ANISHA VILLALTA MD 06/14/19 1318: Assessment/Plan Assessment and Plan Assess & Plan/Chief Complaint Pt more alert today. Was taken to cardiac cath this morning after Dr Cuong tafoya scussed pros and cons with family. Stents were deployed. Discussed with son who is at bedside and plan is for DC to detention on Monday. Will continue DAPT. Continue diuresis. Patient is now a DNR. Diagnosis/Problems Diagnosis/Problems (1) History of stroke with residual deficit Status: Chronic (2) Non-insulin dependent type 2 diabetes mellitus Status: Chronic (3) CKD (chronic kidney disease) Status: Chronic Qualifiers: Qualified Codes: N18.3 - Chronic kidney disease, stage 3 (moderate) (4) Severe sepsis Status: Acute (5) Brain aneurysm Status: Chronic (6) Essential (primary) hypertension Status: Chronic (7) Normocytic anemia (8) CAD (coronary artery disease) Status: Acute Qualifiers: Qualified Codes: I25.118 - Atherosclerotic heart disease of [place] coronary artery with other forms of angina pectoris (9) NSTEMI (non-ST elevated myocardial infarction) Status: Acute (10) Acute respiratory failure Status: Acute Qualifiers: Qualified Codes: J96.01 - Acute respiratory failure with hypoxia (11) Expressive aphasia (12) Hyperlipidemia Status: Chronic Qualifiers: Qualified Codes: E78.2 - Mixed hyperlipidemia Supervisory-Addendum Brief Verification & Attestation Participated in pt care: history, MDM, physical Personally performed: exam, history, MDM, supervision of care Care discussed with: Medical Student Procedures: n/a Results interpretation: Verified all documentation Verification and Attestation of Medical Student E/M Service A medical student performed and documented this service in my presence. I reviewed and verified all information documented by the medical student and made modifications to such information, when appropriate. I personally performed the physical exam and medical decision making. Anisha Villalta, Jun 14, 2019,12:46 ASYA JAMES,MED STUDENT Jun 14, 2019 09:07 ANISHA VILLALTA MD Jun 14, 2019 13:18
--- NOTE | 2019-06-14 09:34 | NUR ---
DR. HOOVER IN ROOM AT 0920 TO TALK WITH FAMILY REGARDING HEART CATH. RISKS VERSUS BENEFITS EXPLAINED. FAMILY VOICED UNDERSTANDING. ROCHELLE MCKENNA WENT OVER CONSENT FORM. DAUGHTER/DPOA SIGNED CONSENT FORM. AT 0932, PT DOWN TO SURVEILLANCE OPERATOR WITH SURVEILLANCE OPERATOR TEAM.
[2019-06-14] MEDS ORDERED: HEParin 1000 UNIT/ML (10ML VIAL) FOR BOLUS ONE (09:44)
[2019-06-14] MEDS ORDERED: NITRO DRIP 25000 MCG/D5W 0 ML IV ONE (10:02)
[2019-06-14] MEDS ORDERED: NS IV 1000 ML 1,000 ML IV SCH (10:43)
[2019-06-14] MEDS ORDERED: PATIENT MAY USE OWN MEDS, ALL PO SCH (10:45)
--- NOTE | 2019-06-14 10:52 | Progress Note - Cardiology ---
Cardiology SOAP Progress Note Subjective: Notes intermittent chest discomfort: midsternal pressure radiating to shoulders lasting a few min, occurring a few times a day, mild to mod, not associated with other symptoms Notes upper back pain and gen body pain Notes gen malaise Does not report palp or syncope or shortness of breath Does not report focal weakness Objective: I&O/Vital Signs 06/13/19 06/13/19 06/13/19 06/13/19 23:00 23:21 23:22 23:23 Temp 36.1 Pulse 117 Resp 21 B/P (MAP) Pulse Ox 93 87 O2 Delivery Nasal Cannula Nasal Cannula Nasal Cannula O2 Flow Rate 2.00 4.00 2.00 06/13/19 06/14/19 06/14/19 06/14/19 23:24 00:00 01:00 01:00 Pulse 84 98 106 Resp 32 31 B/P (MAP) 101/74 (83) 104/68 (80) Pulse Ox 96 97 O2 Delivery Nasal Cannula Nasal Cannula Nasal Cannula O2 Flow Rate 4.00 4.00 4.00 06/14/19 06/14/19 06/14/19 06/14/19 02:00 03:00 03:10 03:30 Temp 36.5 Pulse 118 118 Resp 28 29 B/P (MAP) 113/77 (89) 123/85 (98) Pulse Ox 97 98 O2 Delivery Nasal Cannula Nasal Cannula Nasal Cannula O2 Flow Rate 4.00 4.00 2.00 06/14/19 06/14/19 06/14/19 06/14/19 03:31 04:00 05:00 06:00 Pulse 115 117 112 Resp 33 31 25 B/P (MAP) 104/67 (79) 127/78 (94) 105/67 (80) Pulse Ox 96 97 96 O2 Delivery Nasal Cannula Nasal Cannula Nasal Cannula Nasal Cannula O2 Flow Rate 4.00 2.00 2.00 2.00 06/14/19 06/14/19 06/14/19 06/14/19 07:00 07:00 07:40 08:00 Pulse 108 110 109 Resp 31 B/P (MAP) 141/81 (101) 134/91 (105) Pulse Ox 88 95 98 O2 Delivery Nasal Cannula Nasal Cannula Nasal Cannula O2 Flow Rate 2.00 2.00 2.00 06/14/19 09:00 Pulse 111 Resp 43 B/P (MAP) 117/75 (89) Pulse Ox 90 O2 Delivery Nasal Cannula O2 Flow Rate 2.00 06/14/19 00:00 Intake Total 690 ml Output Total 520 ml Balance 170 ml Weight (Pounds): 194 Weight (Calculated Kilograms): 87.209763 Constitutional: AAO x 3 (Oriented x 3 this am at time of this exam; was confused last night), well-developed, well-nourished Respiratory: No accessory muscle use; other (fair to good bilat air entry, somewhat prolonged exp) Cardiovascular: regular rate-rhythm, S1 and S2, systolic murmur (soft STACEY at card base) Gastrointestional: No tender; soft; No guarding, No rebound; audible bowel sounds Extremities: No clubbing, No cyanosis, No significant edema Neurologic/Psychiatric: oriented x 3 (Oriented at this time, but is intermittently confused), other (expressive dysphasia; seems to move all of his limbs equally) Skin: No rash, No ulcerations Results/Procedures: Labs Laboratory Tests 06/13/19 16:30: Potassium Level 3.6 06/14/19 03:00: Potassium Level 3.7, White Blood Count 14.6H, Red Blood Count 3.35L, Hemoglobin 10.2L, Hematocrit 31L, Mean Corpuscular Volume 94, Mean Corpuscular Hemoglobin 30, Mean Corpuscular Hemoglobin Concent 33, Red Cell Distribution Width 13.4, Platelet Count 287, Mean Platelet Volume 10.2, Neutrophils (%) (Auto) 83H, Lymphocytes (%) (Auto) 9L, Monocytes (%) (Auto) 8, Eosinophils (%) (Auto) 0, Basophils (%) (Auto) 0, Neutrophils # (Auto) 12.1H, Lymphocytes # (Auto) 1.4, Monocytes # (Auto) 1.1H, Eosinophils # (Auto) 0.0, Basophils # (Auto) 0.0, Neutrophils % (Manual) 86, Lymphocytes % (Manual) 9, Monocytes % (Manual) 5, Blood Morphology Comment NORMAL, Sodium Level 138, Chloride Level 105, Carbon Dioxide Level 20L, Anion Gap 13, Blood Urea Nitrogen 22H, Creatinine 1.37H, Estimat Glomerular Filtration Rate 50, BUN/Creatinine Ratio 16, Glucose Level 156H, Calcium Level 8.3L, Phosphorus Level 2.5, Magnesium Level 2.0 Microbiology 06/12/19 Urine Culture - Final, Complete NO GROWTH 06/11/19 Blood Culture - Preliminary, Resulted No growth 06/11/19 MRSA Screen - Final, Complete MRSA not isolated A/P: Assessment: Ac NSTEMI. Card cath of 06/11/19 and of 06/14/19: multivessel coronary artery disease consisting of diffuse moderate disease in the left anterior descending, including a 60-70% stenoses in its distal portion, 95% ostial stenosis of ramus intermedius (stented successfully with Resolute [place] 2 x 18 stent on 06/14/19), 100% stenosis of the proximal left circumflex (PCI attempted on 06/11/19: unsuccessful), 70 to 80% stenosis of the proximal right coronary and distal occlusion of the right coronary. Impairment of global left ventricular systolic function with an ejection fraction of 50%. Posterior basal akinesis. 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 and his family last night. We did not proceed with any cath last night because he was confused. This morning, he was oriented. I again had a long and detailed conversation with him and his family and explained the treatment options. He wanted to proceed with invasive options to the extent feasible. Given that he has been having intermittent chest pain, this seemed reasonable. We proceeded with cath and PCI (see above, please) * Continue DAPT Clinical Quality Measures AMI/AHF: ASA po Prior to arrival: CHRISTINE Baerd MD FACP FAC CCDS Jun 14, 2019 10:51
--- NOTE | 2019-06-14 11:25 | NUR ---
Pastoral care visit.
--- NOTE | 2019-06-14 11:25 | CARDIAC CATHETERIZATION ---
DATE OF SERVICE: 06/11/2019 CARDIAC CATHETERIZATION AND CORONARY INTERVENTION The patient is an 83-year-old man who presented with chest discomfort and non-ST elevation myocardial infarction on 06/11/2019. Cardiac catheterization showed multivessel coronary artery disease. Intervention to a distal obtuse marginal was unsuccessful. This appeared to be a chronic total occlusion. Because of multivessel disease, we did consult cardiovascular surgery (Dr. Snyder at [facility]). We reviewed the films. Cardiovascular surgical service felt that the patient is not a good candidate for surgery. Medical therapy was pursued. He was continuing to have chest discomfort. We had a long and detailed conversation with the patient and his family. Because of ongoing chest discomfort, consensus was to repeat coronary angiography and see if further coronary intervention should be undertaken. DESCRIPTION OF PROCEDURE: He was brought to the cardiac catheterization laboratory in a fasting state. Right groin was prepared and draped in the usual sterile fashion. Lidocaine 1% for local anesthesia. Modified Seldinger technique was used to advance a 5-Spanish sheath in the right femoral artery. We used a 5-Spanish JL4 guide catheter to engage the left coronary artery and perform diagnostic coronary angiography. The patient was found to have 95% ostial and proximal stenosis of the ramus intermedius. The left anterior descending artery had multiple up to 70% stenosis in its distal portion. The culprit lesion in causing his angina appeared to be the ramus intermedius lesion. Right coronary artery angiography was not performed because he is previously known to be chronically occluded in its distal portion. PERCUTANEOUS INTERVENTION TO THE RAMUS INTERMEDIUS: We proceeded with percutaneous intervention to the ramus intermedius artery. We gave 5000 units of intravenous heparin. We used a 6-Spanish JL4 guide catheter and advanced a ChoICE floppy wire across the lesion in the ostial and proximal ramus intermedius and the tip was placed in the distal vessel. Balloon angioplasty was carried out with Emerge 2.0 x 20 mm balloon. Balloon was removed and we stented the lesion with Resolute Mayank 2.0 x 18 mm stent. The subsequent angiogram shows no significant residual stenosis and flow throughout the vessel is normal. The patient tolerated the procedure well. We carried out angiography of the right femoral artery through the sheath and Mynx was used to achieve hemostasis following sheath removal. CORONARY ANGIOGRAPHY: Left main coronary artery does not exhibit significant disease. Left anterior descending artery is heavily calcified. It has multiple up to 70% stenosis in its distal portion. The left circumflex artery has chronic total occlusion following the origin of the ramus intermedius. Ramus intermedius had 95% ostial and proximal stenosis. We carried out balloon angioplasty and stenting to this vessel. Following deployment of Resolute [place] 2.0 x 20 mm stent, there is no significant residual stenosis. CONCLUSIONS: Left coronary system disease consisting of multiple 60-70% stenoses in the distal left anterior descending, chronic proximal occlusion of the left circumflex and 95% ostial stenosis of the ramus intermedius to which successful stenting was carried out today with Resolute Mayank 2.0 x 18 mm stent. Job ID: [id number] DocumentID: [id number] Dictated Date: 06/14/2019 10:35:16 Still Operator Helper Date: 06/14/2019 11:25:01 Dictated By: CHRISTINE HOOVER MD, MA, FACP, FACC, MTDD
--- NOTE | 2019-06-14 11:47 | Occ Therapy Progress Note ---
Therapy Progress Note OT attempted to eval/tx pt this date, however nursing reported that the pt recently returned to ICU from a heart cath procedure, and to withhold treatment this date. SMITH RIOS OT Jun 14, 2019 11:47
[2019-06-14] MEDS ORDERED: fentaNYL INJECTION 100 MCG/2 ML AMP IVP PRN (12:15)
--- NOTE | 2019-06-14 13:28 | Physical Therapy Progress Note ---
Therapy Progress Note Patient had a heart cath earlier today and is still on bedrest. Will perform evaluation tomorrow. MOSHE UPTON PT Jun 14, 2019 13:28
--- NOTE | 2019-06-14 15:08 | NUR ---
CM/SS: Visited with family as to plan for discharge Plan: Pt has been accepted to [facility], he can be placed there once he is deemed medically stable. Summary: Family are awaiting to talk with as to if they will do the heart procedure or if pt will discharge to [facility] on a skilled stay or comfort measures. Pt seems to be more alert today with still noted periods of confusion. It was determined that pt would have the heart procedure and remain in the hospital over the weekend and then be placed at [facility] early next week, Monday. [facility] notified of the change in plan for pt being admitted to their facility and are ok for him to be admitted on June 16. when medically able.
[2019-06-14] MEDS: ENOXAPARIN 40 MG/0.4 ML (LOVENOX) SYR SC SCH (16:05)
[2019-06-15] VITALS (14 sets, daily range): BP systolic 90–149; BP diastolic 54–97
[2019-06-15] MEDS: meTOprolol 5 MG/5 ML (LOPRESSOR) VIAL IV SCH ×3 (00:36→08:35)
[2019-06-15] MEDS: RT-ALBUTEROL/IPRATROPIUM 3 ML (DUONEB) VIAL INH SCH ×6 (03:02→22:11)
[2019-06-15 04:04] LABS: BASOPHILS % (AUTO) 0 % (0-10); EOSINOPHILS # (AUTO) 0.4 10^3/uL (0.0-0.3); EOSINOPHILS % (AUTO) 4 % (0-10); HEMATOCRIT 28 % (40-54); HEMOGLOBIN 9.3 G/DL (13.3-17.7); LYMPHOCYTES # (AUTO) 1.5 X 10^3 (1.0-4.0); LYMPHOCYTES % (AUTO) 15 % (12-44); MEAN CORPUSCULAR HEMOGLOBIN 31 PG (25-34); MEAN CORPUSCULAR HGB CONC 33 G/DL (32-36); MEAN CORPUSCULAR VOLUME 94 FL (80-99); MEAN PLATELET VOLUME 10.5 FL (7.4-10.4); MONOCYTES % (AUTO) 11 % (0-12); NEUTROPHILS # (AUTO) 6.6 X 10^3 (1.8-7.8); NEUTROPHILS % (AUTO) 70 % (42-75); PLATELET COUNT 280 10^3/uL (130-400); RED CELL DISTRIBUTION WIDTH 13.2 % (10.0-14.5); WHITE BLOOD COUNT 9.5 10^3/uL (4.3-11.0)
[2019-06-15 04:31] LABS: CALCIUM 8.1 MG/DL (8.5-10.1); CREATININE SERUM 1.59 MG/DL (0.60-1.30); MAGNESIUM 1.9 MG/DL (1.6-2.4); PHOSPHORUS 2.5 MG/DL (2.3-4.7)
[2019-06-15] MEDS: POTASSIUM CL 10MEQ/50ML IVPB 50 ML IV SCH ×6 (04:45→09:45)
[2019-06-15] MEDS: MAGNESIUM 1 GM/100 ML IVPB 100 ML IV SCH (05:12)
[2019-06-15] MEDS: KCL 20 MEQ TAB (K-DUR) PO SCH (05:12)
[2019-06-15] MEDS: CEFEPIME INJECTION 1,000 MG in WATER (STERILE) FOR INJECTION 10 ML IV SCH ×2 (05:53→20:13)
--- NOTE | 2019-06-15 07:28 | Diagnostic Imaging Report ---
INDICATION: Heart disease. Comparison is made with prior examination from 06/14/2019. FINDINGS: There is cardiomegaly and venous congestion. There is a left upper lobe pneumonia. There is no pleural effusion or pneumothorax. Mediastinum is unremarkable. IMPRESSION: Left upper lobe pneumonia. Cardiomegaly and some central pulmonary venous congestion. Dictated by: Dictated on workstation # [id number]
--- NOTE | 2019-06-15 08:39 | Cardiology Progress Note ---
Subjective Date Seen by Provider: Jun 15, 2019 Time Seen by Provider: 08:35 Subjective/Events-last exam Patient is laying down in bed, no new complaint, groin is healing well Review of Systems General: No Chills, No Night Sweats; Fatigue; No Malaise, No Appetite, No Other HEENT: No Head Aches, No Visual Changes, No Eye Pain, No Ear Pain, No Dysphasia, No Sinus Congestion, No Post Nasal Drip, No Sore Throat, No Other Pulmonary: No Dyspnea, No Cough, No Pleuritic Chest Pain, No Other Cardiovascular: No: Chest Pain, Palpitations, Orthopnea, Paroxysmal Noc. Dyspnea, Edema, Lt Headedness, Other Objective-Cardiology Exam Last Set of Vital Signs Vital Signs 06/12/19 06/15/19 06/15/19 06/15/19 06/15/19 04:00 04:15 06:00 06:25 07:00 Temp 36.2 Pulse 93 Resp 25 B/P (MAP) 99/56 (70) Pulse Ox 97 O2 Delivery Nasal Cannula O2 Flow Rate 3.00 FiO2 25 Capillary Refill : Less Than 3 Seconds I&O Intake and Output 06/15/19 00:00 Intake Total 4315 ml Output Total 2675 ml Balance 1640 ml Intake Oral 535 ml IV Total 3780 ml Output Urine Total 2675 ml General: Alert, Oriented X3, Cooperative HEENT: Atraumatic, PERRLA Neck: Supple, No JVD, No Thyromegaly Lungs: Clear to Auscultation, Normal Air Movement Heart: Regular Rate, Normal S1, Normal S2, No Murmurs Abdomen: Normal Bowel Sounds, Soft, No Tenderness, No Hepatosplenomegaly, No Masses Extremities: No Clubbing, No Cyanosis, No Edema, Normal Pulses, No Tenderness/Swelling Skin: No Rashes, No Breakdown, No Significant Lesion Neuro: Normal Gait, Normal Speech, Strength at 5/5 X4 Ext, Normal Tone, Sensation Intact Psych/Mental Status: Mental Status NL, Mood NL Results Lab Laboratory Tests 06/15/19 03:25 A/P-Cardiology Admission Diagnosis Coronary artery disease Hypertension CVA Chronic kidney disease Assessment/Plan Coronary artery disease status post non-ST elevation myocardial infarction, had a cardiac catheterization on June 11, 2019 and June 14, 2019 multivessel disease, failed intervention on a chronically occluded circumflex, had successful stenting using [place] 2 x 18 to the ostial ramus intermedius with excellent results. 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 Clinical Quality Measures AMI/AHF: ASA po Prior to arrival: No DVT/VTE Risk/Contraindication: Risk Factor Score Per Nursin RFS Level Per Nursing on Admit: 4+=Very High ADIA KEATING MD Jun 15, 2019 08:39
[2019-06-15] MEDS: CLOPIDOGREL 75 MG (PLAVIX) TABLET PO SCH (08:49)
[2019-06-15] MEDS: AZITHROMYCIN INJECTION 250 MG in NS (IVPB) 250 ML IV SCH (08:49)
[2019-06-15] MEDS: BUMETANIDE 1 MG/4 ML (BUMEX) VIAL IV SCH ×2 (08:49→20:13)
[2019-06-15] MEDS: ASPIRIN 81 MG CHEW (CHILDREN'S ASA) PO SCH (08:49)
[2019-06-15] MEDS: meTOproloL SUCCINATE 50 MG (TOPROL XL) TAB PO SCH (08:49)
--- NOTE | 2019-06-15 09:19 | Progress Note - Hospitalist ---
ASYA JAMES,MED STUDENT 06/15/19 0919: Subjective HPI/CC On Admission Date Seen by Provider: Jun 15, 2019 Time Seen by Provider: 08:55 Subjective/Events-last exam Patient complains of fatigue today. Having a little more difficulty with aphasia. No other new complaints or concerns. He denies chest pain or shortness of breath. Objective Exam Vital Signs Vital Signs Date Time Temp Pulse Resp B/P (MAP) Pulse Ox O2 Delivery O2 Flow Rate FiO2 06/15/19 08:00 92 Nasal Cannula 2.00 06/15/19 08:00 87 26 108/97 (101) 06/15/19 04:15 36.2 06/12/19 04:00 25 Capillary Refill : Less Than 3 Seconds General Appearance: No Apparent Distress, WD/WN Respiratory: Chest Non Tender, Lungs Clear, Normal Breath Sounds, No Accessory Muscle Use, No Respiratory Distress Cardiovascular: Regular Rate, Rhythm, No Edema, No Murmur Gastrointestinal: Non Tender, Soft Skin: Normal Color, Warm/Dry Results/Procedures Lab Laboratory Tests 06/15/19 03:25 Patient resulted labs reviewed. Imaging: Reviewed Imaging Report Assessment/Plan Assessment and Plan Assess & Plan/Chief Complaint CAD with NSTEMI - Cardiac cath done 06/12/19 showed significant multivessel disease. He is not a candidate for CABG. Taken back to cath yesterday and 1 stent was successfully placed. - Social work and palliative care also following for discharge planning, current plan is for placement at [facility] in [place] on Monday. - Will move him to 4th floor today - Continue DAPT with aspirin and plavix - Nitro and morphine prn - Continue statin therapy - PT/OT ordered Acute respiratory failure, multifactorial - likely due to acutely decompensated systolic heart failure and pneumonia - Elevated BNP and interval development of left lung infiltrates, CXR today showed left upper lobe pneumonia - Continue azithromycin and cefepime - Continue bumetanide - MAT protocol - Pulmonology following - Pancultures with NGTD - Respiratory viral panel negative - Flu negative - O2 and bipap as needed CKD stage II - Slight increase in creatinine as expected due to contrast yesterday during cath - Will hold nephrotoxic drugs as able Non insulin dependent type II diabetes - Sliding scale insulin DVT prophylaxis - Lovenox 40 mg daily Clinical Quality Measures AMI/AHF: ASA po Prior to arrival: No DVT/VTE Risk/Contraindication: Risk Factor Score Per Nursin RFS Level Per Nursing on Admit: 4+=Very High ANISHA VILLALTA MD 06/15/19 1423: Assessment/Plan Assessment and Plan Assess & Plan/Chief Complaint Pt doing well. Confused still but pleasantly confused. Will transfer to the floor as he has done well post cath. Continue PT/OT. Will likely need skilled placement on discharge. Supervisory-Addendum Brief Verification & Attestation Participated in pt care: history, MDM, physical Personally performed: exam, history, MDM, supervision of care Care discussed with: Medical Student Procedures: n/a Results interpretation: Verified all documentation Verification and Attestation of Medical Student E/M Service A medical student performed and documented this service in my presence. I reviewed and verified all information documented by the medical student and made modifications to such information, when appropriate. I personally performed the physical exam and medical decision making. Anisha Villalta, Jun 15, 2019,14:21 ASYA JAMES,MED STUDENT Jun 15, 2019 09:19 ANISHA VILLALTA MD Jun 15, 2019 14:23
--- NOTE | 2019-06-15 12:24 | Physical Therapy Evaluation ---
PT Evaluation-General Medical Diagnosis Admission Date Jun 11, 2019 at 20:49 Medical Diagnosis: NSTEMI Onset Date: Jun 11, 2019 Therapy Diagnosis Therapy Diagnosis: weakness; abn gait Height/Weight Height (Feet): 5 Height (Inches): 11.00 Weight (Pounds): 194 Precautions Precautions/Isolations: Fall Prevention, Standard Precautions Weight Bear Status Right Lower Extremity: Right Weight Bearing/Tolerated Left Lower Extremity: Left Weight Bearing/Tolerated Referral Physician: Ambar Reason for Referral: Evaluation/Treatment Medical History Pertinent Medical History: CAD, DM, HTN Additional Medical History aphasia, hx of CVA with right side weakness. Current History Admitted with NSTEMI with acute resp failure. Reviewed History: Yes Social History Home: Single Level Current Living Status: Alone Entry Into Home: Stairs With Railing Prior Prior Level of Function SCALE: Activities may be completed with or without assistive devices. 4-Eeavyggsut-plilkub completes the activity by him/herself with no assistance from a helper. 5-Set-up or Clean-up Assistance-helper sets up or cleans up; patient completes activity. [place] assists only prior to or following the activity. 4-Supervision or Touching Assistance-helper provides verbal cues and/or touching/steadying and/or contact guard assistance as patient completes activity. Assistance may be provided throughout the activity or intermittently. 3-Partial/Moderate Assistance-helper does LESS THAN HALF the effort. [place] lifts, holds or supports trunk or limbs, but provides less than half the effort. 2-Substantial/Maximal Assistance-helper does MORE THAN HALF the effort. [place] lifts or holds trunk or limbs and provides more than half the effort. 1-Tcojzedsk-biksad does ALL the effort. Patient does none of the effort to complete the activity. Or, the assistance of 2 or more helpers is required for the patient to complete the activity. If activity was not attempted, code reason: 7-Patient Refused. 9-Not Applicable-not attempted and the patient did not perform the activity before the current illness, exacerbation or injury. 10-Not Attempted due to Environmental Limitations-(lack of equipment, weather restraints, etc.). 88-Not Attempted due to Medical Conditions or Safety Concerns. Bed Mobility: 6 Transfers (B,C,W/C): 6 Gait: 6 Indoor Mobility (Ambulation): Independent Stairs: Needed Some Help Prior Devices Use: Walker This patient is known to this patient. He lives alone in a trailer home with intermittent assist from family. He was able to manage in his home but with difficulty and limited mobiltiy. PT Evaluation-Current Subjective Pt agrees to PT after much encouragement. Initially refused out of bed, but did eventually agree. Objective Patient Orientation: Person, Confused, Place, Time impaired safety awareness or rationale. ROM/Strength ROM Lower Extremities WFL Strength Lower Extremities grossly 4-/5 Integumentary/Posture Integumentary refer to nursing note.s Bladder Incontinence: Adams Cath Posture kyphotic with rounded shoulders. Neuromuscular (Tone, Coordination, Reflexes) functional Sensory Vision: Functional Hearing: Functional Sensation Right Lower Extremit: Intact Sensation Left Lower Extremity: Intact Transfers Roll Left to Right (QC): 3 Sit to Lying (QC): 3 Lying to Sitting/Side of Bed(Q: 3 Sit to Stand (QC): 3 Chair/Iii-aa-Wvqyk Xfer(QC): 2 Pt is slightly impulsive and has some safety issues with standing and transferring; unable to come to a full upright stance to transfer. Pt up in chair post treatment with needs me.t Balance Sitting Static: Fair Sitting Dynamic: Fair Standing Static: Fair Standing Dynamic: Fair Assessment/Needs Post NH< with residual weakness. He will benefit from skilled PT to address mobilty to allow him to return to a mod indep level of transfers and ambulation as he was at his PLOF. Rehab Potential: Guarded PT Assisted Goals Assisted Goals PT Packager Or Packer And Weigher Goals Time Frame: Jun 21, 2019 Roll Left & Right (QC): 6 Sit to Lying (QC): 6 Lying-Sitting on Side/Bed(QC): 6 Sit to Stand (QC): 6 Chair/Rct-lf-Uhlkq Xfer(QC): 6 Walk 150 ft (QC): 6 PT Plan Problem List Problem List: Activity Tolerance, Functional Strength, Safety, Balance, Gait, Transfer, Bed Mobility Treatment/Plan Treatment Plan: Continue Plan of Care Treatment Plan: Bed Mobility, Education, Functional Activity Juanpablo, Functional Strength, Gait, Safety, Therapeutic Exercise Treatment Duration: Jun 21, 2019 Frequency: 6 times per week Estimated Hrs Per Day: .25 hour per day Patient and/or Family Agrees t: Yes Safety Risks/Education Patient Education: Transfer Techniques Teaching Recipient: Patient Teaching Methods: Demonstration, Discussion Response to Teaching: Reinforcement Needed Discharge Recommendations Therapy Discharge Recommendati: Post Acute PT Time/GCodes Time In: 955 Time Out: 1005 Total Billed Treatment Time: 10 Total Billed Treatment visit EVM 10 DEONNA SEBASTIAN PT Jun 15, 2019 12:24
[2019-06-15] MEDS: ENOXAPARIN 40 MG/0.4 ML (LOVENOX) SYR SC SCH (16:17)
[2019-06-16 00:19] VITALS: BP 132/62
[2019-06-16 04:21] VITALS: BP 110/58
[2019-06-16] MEDS: RT-ALBUTEROL/IPRATROPIUM 3 ML (DUONEB) VIAL INH SCH ×6 (05:26→22:49)
[2019-06-16] MEDS: CEFEPIME INJECTION 1,000 MG in WATER (STERILE) FOR INJECTION 10 ML IV SCH ×3 (05:29→21:22)
[2019-06-16 06:28] LABS: BASOPHILS % (AUTO) 0 % (0-10); EOSINOPHILS # (AUTO) 0.8 10^3/uL (0.0-0.3); EOSINOPHILS % (AUTO) 8 % (0-10); HEMATOCRIT 32 % (40-54); HEMOGLOBIN 10.4 G/DL (13.3-17.7); LYMPHOCYTES # (AUTO) 1.5 X 10^3 (1.0-4.0); LYMPHOCYTES % (AUTO) 16 % (12-44); MEAN CORPUSCULAR HEMOGLOBIN 30 PG (25-34); MEAN CORPUSCULAR HGB CONC 32 G/DL (32-36); MEAN CORPUSCULAR VOLUME 95 FL (80-99); MEAN PLATELET VOLUME 10.3 FL (7.4-10.4); MONOCYTES # (AUTO) 0.8 X 10^3 (0.0-1.0); MONOCYTES % (AUTO) 9 % (0-12); NEUTROPHILS # (AUTO) 6.1 X 10^3 (1.8-7.8); NEUTROPHILS % (AUTO) 67 % (42-75); PLATELET COUNT 313 10^3/uL (130-400); RED CELL DISTRIBUTION WIDTH 13.5 % (10.0-14.5); WHITE BLOOD COUNT 9.2 10^3/uL (4.3-11.0)
[2019-06-16 06:58] LABS: CALCIUM 8.7 MG/DL (8.5-10.1); CREATININE SERUM 1.38 MG/DL (0.60-1.30)
[2019-06-16] MEDS: MAGNESIUM 1 GM/100 ML IVPB 100 ML IV SCH (07:31)
[2019-06-16 07:35] VITALS: BP 112/56
[2019-06-16] MEDS: ASPIRIN 81 MG CHEW (CHILDREN'S ASA) PO SCH (07:44)
[2019-06-16] MEDS: meTOproloL SUCCINATE 50 MG (TOPROL XL) TAB PO SCH (07:44)
[2019-06-16] MEDS: CLOPIDOGREL 75 MG (PLAVIX) TABLET PO SCH (07:44)
[2019-06-16] MEDS: KCL 20 MEQ TAB (K-DUR) PO SCH ×2 (07:45→09:54)
[2019-06-16] MEDS: BUMETANIDE 1 MG/4 ML (BUMEX) VIAL IV SCH ×2 (07:46→21:21)
[2019-06-16] MEDS: POTASSIUM CL 10MEQ/50ML IVPB 50 ML IV SCH (07:50)
[2019-06-16] MEDS: AZITHROMYCIN INJECTION 250 MG in NS (IVPB) 250 ML IV SCH (08:41)
--- NOTE | 2019-06-16 10:16 | Cardiology Progress Note ---
Subjective Date Seen by Provider: Jun 16, 2019 Time Seen by Provider: 10:14 Subjective/Events-last exam Patient is sitting in a chair. Denied any active pain. No palpitation. Review of Systems General: No Chills, No Night Sweats, No Fatigue, No Malaise, No Appetite, No Other HEENT: No Head Aches, No Visual Changes, No Eye Pain, No Ear Pain, No Dysphasia, No Sinus Congestion, No Post Nasal Drip, No Sore Throat, No Other Pulmonary: No Dyspnea, No Cough, No Pleuritic Chest Pain, No Other Cardiovascular: No: Chest Pain, Palpitations, Orthopnea, Paroxysmal Noc. Dyspnea, Edema, Lt Headedness, Other Objective-Cardiology Exam Last Set of Vital Signs Vital Signs 06/12/19 06/16/19 06/16/19 04:00 07:35 08:00 Temp 36.5 Pulse 105 Resp 16 B/P (MAP) 112/56 (74) Pulse Ox 92 O2 Delivery Room Air O2 Flow Rate 2.00 FiO2 25 Capillary Refill : Less Than 3 Seconds I&O Intake and Output 06/16/19 00:00 Intake Total 1320 ml Output Total 1875 ml Balance -555 ml Intake Oral 1110 ml IV Total 210 ml Output Urine Total 1875 ml # Voids 2 General: Alert, Oriented X3, Cooperative HEENT: Atraumatic, PERRLA Neck: Supple, No JVD, No Thyromegaly Lungs: Clear to Auscultation, Normal Air Movement Heart: Regular Rate, Normal S1, Normal S2, No Murmurs Abdomen: Normal Bowel Sounds, Soft, No Tenderness, No Hepatosplenomegaly, No Masses Extremities: No Clubbing, No Cyanosis, No Edema, Normal Pulses, No Te nderness/Swelling Skin: No Rashes, No Breakdown, No Significant Lesion Neuro: Normal Gait, Normal Speech, Strength at 5/5 X4 Ext, Normal Tone, Sensation Intact Psych/Mental Status: Mental Status NL, Mood NL Results Lab Laboratory Tests 06/16/19 05:01 A/P-Cardiology Admission Diagnosis Coronary artery disease Hypertension CVA Chronic kidney disease Assessment/Plan Coronary artery disease status post non-ST elevation myocardial infarction, had a cardiac catheterization on June 11, 2019 and June 14, 2019 multivessel disease, failed intervention on a chronically occluded circumflex, had successful stenting using [place] 2 x 18 to the ostial ramus intermedius with excellent results. 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 Clinical Quality Measures AMI/AHF: ASA po Prior to arrival: No DVT/VTE Risk/Contraindication: Risk Factor Score Per Nursin RFS Level Per Nursing on Admit: 4+=Very High ADIA KEATING MD Jun 16, 2019 10:16
[2019-06-16] MEDS ORDERED: KCL 20 MEQ TAB (K-DUR) PO NR (10:19)
--- NOTE | 2019-06-16 10:26 | NUR ---
Dr. Michelle informed that his RN was replacing pt potassium via ICU protocol and pt had received [address] Michelle stated to stop there for today and cancel his order for the additional.
[2019-06-16 11:07] VITALS: BP 122/48
--- NOTE | 2019-06-16 12:04 | Progress Note - Hospitalist ---
Subjective HPI/CC On Admission Date Seen by Provider: Jun 16, 2019 Time Seen by Provider: 11:59 Subjective/Events-last exam Pt reports doing well today. No chest pain. Some mild back pain at times. This is chronic though. Objective Exam Vital Signs Vital Signs Date Time Temp Pulse Resp B/P (MAP) Pulse Ox O2 Delivery O2 Flow Rate FiO2 06/16/19 11:11 97 Room Air 06/16/19 11:07 36.9 46 20 122/48 (72) 06/16/19 08:00 2.00 06/12/19 04:00 25 Capillary Refill : Less Than 3 Seconds General Appearance: No Apparent Distress, Chronically ill, Thin Respiratory: Lungs Clear, No Respiratory Distress Cardiovascular: Regular Rate, Rhythm, No Murmur Gastrointestinal: Normal Bowel Sounds, Soft Results/Procedures Lab Laboratory Tests 06/16/19 05:01 Patient resulted labs reviewed. Imaging: Reviewed Imaging Report Assessment/Plan Assessment and Plan Assess & Plan/Chief Complaint NSTEMI Multivessel severe CAD - Staged procedure done, improving - Continue DAPT with ASA and Plavix - Statin - Nitro and morphine prn Acute hypoxic respiratory failure- multifactorial, improved - Continue Cefepime and Azithromycin - Cultures with NGTD - Pulmonology consulted, appreciate recs - MAT protocol - Respiratory viral panel negative CKD stage II - Creatinine stable - Trend and hold nephrotoxic drugs as able as he will get more contrast today for cath Non insulin dependent type II diabetes - Sliding scale insulin Dispo: To [place] tomorrow Diagnosis/Problems Diagnosis/Problems (1) History of stroke with residual deficit Status: Chronic (2) Non-insulin dependent type 2 diabetes mellitus Status: Chronic (3) CKD (chronic kidney disease) Status: Chronic Qualifiers: Chronic kidney disease stage: stage 3 (moderate) Qualified Codes: N18.3 - Chronic kidney disease, stage 3 (moderate) (4) Severe sepsis Status: Acute (5) Brain aneurysm Status: Chronic (6) Essential (primary) hypertension Status: Chronic (7) Normocytic anemia (8) CAD (coronary artery disease) Status: Acute Qualifiers: Coronary Disease-Associated Artery/Lesion type: [place] artery [place] vs. transplanted heart: [place] heart Associated angina: with stable angina Qualified Codes: I25.118 - Atherosclerotic heart disease of [place] coronary artery with other forms of angina pectoris (9) NSTEMI (non-ST elevated myocardial infarction) Status: Acute (10) Acute respiratory failure Status: Acute Qualifiers: Respiratory failure complication: hypoxia Qualified Codes: J96.01 - Acute respiratory failure with hypoxia (11) Expressive aphasia (12) Hyperlipidemia Status: Chronic Qualifiers: Hyperlipidemia type: mixed hyperlipidemia Qualified Codes: E78.2 - Mixed hyperlipidemia Clinical Quality Measures AMI/AHF: ASA po Prior to arrival: No DVT/VTE Risk/Contraindication: Risk Factor Score Per Nursin RFS Level Per Nursing on Admit: 4+=Very High ANISHA MALDONADO MD Jun 16, 2019 12:04
[2019-06-16 15:24] VITALS: BP 108/62
[2019-06-16] MEDS: ENOXAPARIN 40 MG/0.4 ML (LOVENOX) SYR SC SCH (15:31)
[2019-06-16 19:08] VITALS: BP 120/58
[2019-06-17 00:27] VITALS: BP 86/53
[2019-06-17] MEDS: RT-ALBUTEROL/IPRATROPIUM 3 ML (DUONEB) VIAL INH SCH ×4 (02:49→14:19)
[2019-06-17 04:00] VITALS: BP 90/54
[2019-06-17 05:28] LABS: BASOPHILS % (AUTO) 0 % (0-10); EOSINOPHILS # (AUTO) 0.7 10^3/uL (0.0-0.3); EOSINOPHILS % (AUTO) 6 % (0-10); HEMATOCRIT 32 % (40-54); HEMOGLOBIN 10.3 G/DL (13.3-17.7); LYMPHOCYTES % (AUTO) 18 % (12-44); MEAN CORPUSCULAR HEMOGLOBIN 31 PG (25-34); MEAN CORPUSCULAR HGB CONC 32 G/DL (32-36); MEAN CORPUSCULAR VOLUME 96 FL (80-99); MEAN PLATELET VOLUME 10.4 FL (7.4-10.4); MONOCYTES # (AUTO) 1.1 X 10^3 (0.0-1.0); MONOCYTES % (AUTO) 10 % (0-12); NEUTROPHILS % (AUTO) 65 % (42-75); PLATELET COUNT 326 10^3/uL (130-400); RED CELL DISTRIBUTION WIDTH 13.4 % (10.0-14.5); WHITE BLOOD COUNT 10.8 10^3/uL (4.3-11.0)
[2019-06-17 05:50] LABS: CALCIUM 8.6 MG/DL (8.5-10.1); CREATININE SERUM 1.54 MG/DL (0.60-1.30); POTASSIUM 3.7 MMOL/L (3.6-5.0)
[2019-06-17] MEDS: CEFEPIME INJECTION 1,000 MG in WATER (STERILE) FOR INJECTION 10 ML IV SCH (06:04)
[2019-06-17] MEDS: POTASSIUM CL 10MEQ/50ML IVPB 50 ML IV SCH (06:10)
[2019-06-17] MEDS: MAGNESIUM 1 GM/100 ML IVPB 100 ML IV SCH (06:11)
[2019-06-17] MEDS: CLOPIDOGREL 75 MG (PLAVIX) TABLET PO SCH (07:42)
[2019-06-17] MEDS: ASPIRIN 81 MG CHEW (CHILDREN'S ASA) PO SCH (07:43)
[2019-06-17] MEDS: meTOproloL SUCCINATE 50 MG (TOPROL XL) TAB PO SCH (07:43)
[2019-06-17] MEDS: BUMETANIDE 1 MG/4 ML (BUMEX) VIAL IV SCH (07:48)
[2019-06-17 08:00] VITALS: BP 127/84
--- NOTE | 2019-06-17 09:48 | Progress Note - Cardiology ---
Cardiology SOAP Progress Note Subjective: Lying in bed. Family x 2 at the bedside. States he feels ok this morning. No c/o CP or palpitations. C/O occ SOB and cough. Objective: I&O/Vital Signs Weight (Pounds): 194 Weight (Calculated Kilograms): 87.347415 Constitutional: AAO x 3 (Oriented x 3 this am at time of this exam; was confused last night), well-developed, well-nourished Respiratory: No accessory muscle use; other (fair to good bilat air entry, somewhat prolonged exp) Cardiovascular: regular rate-rhythm, S1 and S2, systolic murmur (soft STACEY at card base) Gastrointestional: No tender; soft; No guarding, No rebound; audible bowel sounds Extremities: No clubbing, No cyanosis, No significant edema Neurologic/Psychiatric: oriented x 3 (Oriented at this time, but is intermittently confused), other (expressive dysphasia; seems to move all of his limbs equally) Skin: No rash, No ulcerations Results/Procedures: Labs Microbiology 06/12/19 Urine Culture - Final, Complete NO GROWTH 06/11/19 Blood Culture - Final, Complete No growth 06/11/19 MRSA Screen - Final, Complete MRSA not isolated A/P: Assessment: Ac NSTEMI. Card cath of 06/11/19 and of 06/14/19: multivessel coronary artery disease consisting of diffuse moderate disease in the left anterior descending, including a 60-70% stenoses in its distal portion, 95% ostial stenosis of ramus intermedius (stented successfully with Resolute Mayank 2 x 18 stent on 06/14/19), 100% stenosis of the proximal left circumflex (PCI attempted on 06/11/19: unsuccessful), 70 to 80% stenosis of the proximal right coronary and distal occlusion of the right coronary. Impairment of global left ventricular systolic function with an ejection fraction of 50%. Posterior basal akinesis. 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
--- NOTE | 2019-06-17 10:53 | NUR ---
CM/SS: Visited with pt and family as to plan for discharge Plan: Pt will discharge to [facility] on today on a skilled bed. [facility] can grain picker pt today at 1:00pm. Summary: Level I CARE Assessment completed - Pt will discharge to [facility] today. [facility] will be able to grain picker pt today at 1:00pm Family feel as if that is a good plan for pt. [facility] are also working with [facility] to determine a long range [facility] plan for pt once he has completed his skilled placement.
[2019-06-17] MEDS ORDERED: ASPI-999 PO (11:45)
[2019-06-17] MEDS ORDERED: CLOP75TA28 PO (11:45)
[2019-06-17] MEDS ORDERED: ATOR40TA PO (11:45)
[2019-06-17] MEDS ORDERED: METO50TA7 PO (11:45)
[2019-06-17] MEDS ORDERED: FURO-124 PO (11:47)
--- NOTE | 2019-06-17 11:52 | Discharge Summary ---
Discharge Summary Reconcile Patient Problems Problems Reviewed?: Yes Hospital Course Hospital Course Date of Admission: Jun 11, 2019 at 20:49 Admission Diagnosis : NSTEMI Family Physician/Provider: No,Local Physician Date of Discharge: 06/17/19 Discharge Diagnosis: NSTEMI Hospital Course: Josue Marie is an 83-year-old male who presented with chest pain and was admitted with non-ST elevation FL. Cardiology was consulted and he underwent a left heart catheterization. This revealed multivessel coronary artery disease. Dr. Hutchins discussed the case with a cardiothoracic surgeon in [place] and they did not believe him to be a surgical candidate. Due to this, a staged PCI was performed. He was started on dual antiplatelet therapy. He was switched from simvastatin to atorvastatin. He was started on diuretics. He was discharged to [facility] for ongoing therapy. Labs and Pending Lab Test: Laboratory Tests 06/17/19 04:24: White Blood Count 10.8, Red Blood Count 3.37L, Hemoglobin 10.3L, Hematocrit 32L, Mean Corpuscular Volume 96, Mean Corpuscular Hemoglobin 31, Mean Corpuscular Hemoglobin Concent 32, Red Cell Distribution Width 13.4, Platelet Count 326, Mean Platelet Volume 10.4, Neutrophils (%) (Auto) 65, Lymphocytes (%) (Auto) 18, Monocytes (%) (Auto) 10, Eosinophils (%) (Auto) 6, Basophils (%) (Auto) 0, Neutrophils # (Auto) 7.0, Lymphocytes # (Auto) 2.0, Monocytes # (Auto) 1.1H, Eosinophils # (Auto) 0.7H, Basophils # (Auto) 0.0, Sodium Level 139, Potassium Level 3.7, Chloride Level 102, Carbon Dioxide Level 25, Anion Gap 12, Blood Urea Nitrogen 22H, Creatinine 1.54H, Estimat Glomerular Filtration Rate 44, BUN/Creatinine Ratio 14, Glucose Level 150H, Calcium Level 8.6 Microbiology 06/12/19 Urine Culture - Final, Complete NO GROWTH 06/11/19 Blood Culture - Preliminary, Resulted No growth 06/11/19 MRSA Screen - Final, Complete MRSA not isolated Home Meds Active Lasix (Furosemide) 40 Mg Tablet 40 Mg PO DAILY 90 Days Clopidogrel (Clopidogrel Bisulfate) 75 Mg Tablet 75 Mg PO DAILY 90 Days Aspirin 81 Mg Tab.chew 81 Mg PO DAILY 90 Days Metoprolol Succinate 50 Mg Tab.er.24h 50 Mg PO DAILY 90 Days Lipitor (Atorvastatin Calcium) 40 Mg Tablet 40 Mg PO HS 90 Days Reported Glucosamine (Glucosamine Sulfate) 500 Mg Capsule 500 Mg PO DAILY Tylenol Arth Pain (Non-Formulary) (Acetaminophen) 650 Mg Cplt 650 Mg PO BID PRN Terazosin (Terazosin Hcl) 10 Mg Capsule 20 Mg PO HS TAKES 2 (10MG) CAPSULES Finasteride 5 Mg Tablet 5 Mg PO DAILY Calcium Carbonate 650 Mg Tablet 650 Mg PO BID Instructions to Patient/Family Assessment/Instructions Take medications as prescribed. Begin taking aspirin and Plavix for coronary artery disease. Begin taking Lipitor for cholesterol. Begin taking Lasix for a diuretic. Follow-up with your primary care doctor. Follow Up Appt.: Next assisted rounds Skilled NF Admit to: [facility] I certify that SNF services are required to be given on an inpatient basis because of the above named patient's need for snf care on a continuing basis for the conditions(s) for which he/she was receiving inpatient hospital services prior to his/her transfer to the SNF. Long Term Facility Order: Nursing Services, Mold Finisher-Evaluate & Treat, Physical Therapy-Evaluate & Treat, Speech Language-Evaluate & Treat Oxygen Delivery Method: Room Air Discharge Diet: Low Sodium Diet Daily Activity as Tolerated: Yes Resuscitation Status: Do Not Resuscitate Jelly Palma Jun 17, 2019 11:51 Pneu Vac Indicated: Yes Discharge Physical Exam General: Alert, Cooperative, No Acute Distress HEENT: Atraumatic, PERRLA, EOMI, Mucous Memb Moist/[place] Lungs: Clear to Auscultation, Normal Air Movement Heart: Regular Rate, Normal S1, Normal S2, No Murmurs Abdomen: Normal Bowel Sounds, Soft, No Tenderness Extremities: No Edema, No Tenderness/Swelling Skin: No Rashes, No Significant Lesion Neuro: Other (Expressive aphasia) Psych/Mental Status: Mental Status NL, Mood NL JELLY PALMA MD Jun 17, 2019 11:52
[2019-06-17 12:00] VITALS: BP 122/81
--- NOTE | 2019-06-17 12:01 | Progress Note - Cardiology ---
Cardiology SOAP Progress Note Subjective: No cp or palp or syncope Gen weakness and malaise No n/v/d Objective: I&O/Vital Signs 06/17/19 06/17/19 06/17/19 06/17/19 00:27 04:00 08:00 08:00 Temp 36.3 36.2 35.8 Pulse 98 107 107 Resp 16 18 16 B/P (MAP) 86/53 (64) 90/54 (66) 127/84 (98) Pulse Ox 98 97 95 99 O2 Delivery Room Air Room Air Room Air Room Air 06/17/19 00:00 Intake Total 1070 ml Output Total 845 ml Balance 225 ml Weight (Pounds): 194 Weight (Calculated Kilograms): 87.133113 Constitutional: AAO x 3 (Oriented x 3 this am at time of this exam; was confused last night), well-developed, well-nourished Respiratory: No accessory muscle use; other (fair to good bilat air entry, somewhat prolonged exp) Cardiovascular: regular rate-rhythm, S1 and S2, systolic murmur (soft STACEY at card base) Gastrointestional: No tender; soft; No guarding, No rebound; audible bowel sounds Extremities: No clubbing, No cyanosis, No significant edema Neurologic/Psychiatric: oriented x 3 (Oriented at this time, but is inte rmittently confused), other (expressive dysphasia; seems to move all of his limbs equally) Skin: No rash, No ulcerations Results/Procedures: Labs Laboratory Tests 06/17/19 04:24: White Blood Count 10.8, Red Blood Count 3.37L, Hemoglobin 10.3L, Hematocrit 32L, Mean Corpuscular Volume 96, Mean Corpuscular Hemoglobin 31, Mean Corpuscular Hemoglobin Concent 32, Red Cell Distribution Width 13.4, Platelet Count 326, Mean Platelet Volume 10.4, Neutrophils (%) (Auto) 65, Lymphocytes (%) (Auto) 18, Monocytes (%) (Auto) 10, Eosinophils (%) (Auto) 6, Basophils (%) (Auto) 0, Neutrophils # (Auto) 7.0, Lymphocytes # (Auto) 2.0, Monocytes # (Auto) 1.1H, Eosinophils # (Auto) 0.7H, Basophils # (Auto) 0.0, Sodium Level 139, Potassium Level 3.7, Chloride Level 102, Carbon Dioxide Level 25, Anion Gap 12, Blood Urea Nitrogen 22H, Creatinine 1.54H, Estimat Glomerular Filtration Rate 44, BUN/Creatinine Ratio 14, Glucose Level 150H, Calcium Level 8.6 Microbiology 06/12/19 Urine Culture - Final, Complete NO GROWTH 06/11/19 Blood Culture - Preliminary, Resulted No growth 06/11/19 MRSA Screen - Final, Complete MRSA not isolated A/P: Assessment: Ac NSTEMI. Card cath of 06/11/19 and of 06/14/19: multivessel coronary artery disease consisting of diffuse moderate disease in the left anterior descending, including a 60-70% stenoses in its distal portion, 95% ostial stenosis of ramus intermedius (stented successfully with Resolute Mayank 2 x 18 stent on 06/14/19), 100% stenosis of the proximal left circumflex (PCI attempted on 06/11/19: unsuccessful), 70 to 80% stenosis of the proximal right coronary and distal occlusion of the right coronary. Impairment of global left ventricular systolic function with an ejection fraction of 50%. Posterior basal akinesis. Normal left ventricular end-diastolic pressure Intermittent confusion Intermittent RBBB DM II CKD 2-3, probably chronic diabetic nephropathy Anemia, apparently chronic, etiology undetermined, managed by the Hospitalist Service H/o cerebral aneurysm clipping with neuro deficits since, including expressive aphasia H/o ischemic stroke in 2005 H/o chronic occl of L ICA, [facility] Plan: * Complex management due to multiple comorbidities (outlined above) * Continue DAPT * Change diuretics to oral * I reviewed his CV issues with him and his family, and answered questions * Medication compliance advised * Outpt f/u advised Clinical Quality Measures AMI/AHF: ASA po Prior to arrival: CHRISTINE Beard MD FACP FAC CCDS Jun 17, 2019 12:01
--- NOTE | 2019-06-17 12:05 | NUR ---
REPORT CALLED TO IVANA BYRD AT [facility].
[2019-06-17 15:00] VITALS: BP 122/81
--- NOTE | 2019-06-17 15:00 | NUR ---
JAVIER HERNANDEZ demonstrates understanding of discharge instructions and accurately returns instructions upon questioning. Copy of Post-Discharge Instructions given to PT. JAVIER HERNANDEZ is able to manage continuing needs after discharge. Patients belongings returned to PT. Patient discharged from [facility] on 06/16/18 at 1500. MARYJAVIER Ledbetter left floor via W/C, accompanied by [facility] [employer] [facility].
[2019-06-17] MEDS ORDERED: BUMETANIDE 1 MG (BUMEX) TAB PO SCH (17:00)
--- OUTSIDE RECORDS SUMMARY | 2019-06-18 06:17 | XMS REPORT | Continuity of Care Document ---
Author Organization Unknown Address Unknown Phone Unavailable Allergies Active Description Code Type Severity Reaction Onset Reported/Identified Relationship to Patient Clinical Status Yes Penicillins [id number] Drug Aller gy Unknown N/A 02/11/2006 Medications There is no data. Problems Date Dx Coded Attending Type Code Diagnosis Diagnosed By 08/27/2014 IVANA BERNAL DO Ot 401.9 HYPERTENSION NOS 08/27/2014 IVANA BERNAL DO Ot 719.41 JOINT PAIN-SHLDER 08/27/2014 IVANA BERNAL DO Ot 729.5 PAIN IN LIMB 08/27/2014 IVANA BERNAL DO Ot V12.54 PERSONAL HX OF TIA, CEREBRAL INFARCTION 12/18/2018 BEKAH STEWARD MD Ot E11.9 TYPE 2 DIABETES MELLITUS WITHOUT COMPLIC 12/18/2018 BEKAH STEWARD MD Ot F03.90 UNSPECIFIED DEMENTIA WITHOUT BEHAVIORAL 12/18/2018 BEKAH STEWARD MD Ot I10 ESSENTIAL (PRIMARY) HYPERTENSION 12/18/2018 BEKAH STEWARD MD Ot M25.552 PAIN IN LEFT HIP 12/18/2018 BEKAH STEWARD MD, Ot M25.562 PAIN IN LEFT KNEE 12/18/2018 BEKAH STEWARD MD Ot 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 12/18/2018 BEKAH STEWARD MD Ot Z79.84 SENIOR CARE (CURRENT) USE OF ORAL HYPOGLYC 12/18/2018 BEKAH STEWARD MD Ot Z88.0 ALLERGY STATUS TO PENICILLIN 12/21/2018 BEKAH STEWARD MD, Ot E11.9 TYPE 2 DIABETES MELLITUS WITHOUT COMPLIC 12/21/2018 BEKAH STEWARD MD Ot F03.90 UNSPECIFIED DEMENTIA WITHOUT BEHAVIORAL 12/21/2018 BEKAH STEWARD MD Ot I10 ESSENTIAL (PRIMARY) HYPERTENSION 12/21/2018 BEKAH STEWARD MD Ot M25.552 PAIN IN LEFT HIP 12/21/2018 BEKAH STEWARD MD Ot M25.562 PAIN IN LEFT KNEE 12/21/2018 BEKAH STEWARD MD Ot 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 12/21/2018 BEKAH STEWARD MD Ot 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 12/21/2018 BEKAH STEWARD MD Ot Z88.0 ALLERGY STATUS TO PENICILLIN 12/24/2018 BEKAH STEWARD MD Ot E11.9 TYPE 2 DIABETES MELLITUS WITHOUT COMPLIC 12/24/2018 BEKAH STEWARD MD Ot F03.90 UNSPECIFIED DEMENTIA WITHOUT BEHAVIORAL 12/24/2018 BEKAH STEWARD MD Ot I10 ESSENTIAL (PRIMARY) HYPERTENSION 12/24/2018 BEKAH STEWARD MD Ot M25.552 PAIN IN LEFT HIP 12/24/2018 BEKAH STEAWRD MD Ot M25.562 PAIN IN LEFT KNEE 12/24/2018 BEKAH STEWARD MD Ot 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 12/24/2018 BEKAH STEWARD MD Ot Z79.84 SENIOR CARE (CURRENT) USE OF ORAL HYPOGLYC 12/24/2018 BEKAH STEWARD MD Ot Z88.0 ALLERGY STATUS TO PENICILLIN 06/13/2019 KIKO QUEZADA FACC, ALI FACP CCDS Ot A41.9 SEPSIS, UNSPECIFIED ORGANISM 06/13/2019 KIKO QUEZADA FACC, ALI FACP CCDS Ot D64.9 ANEMIA, UNSPECIFIED 06/13/2019 KIKO QUEZADA FACC, ALI FACP CCDS Ot 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 06/13/2019 KIKO QUEZADA FACC, ALI FACP CCDS Ot E87.2 ACIDOSIS 06/13/2019 KIKO QUEZADA FACC, ALI FACP CCDS Ot F03.90 UNSPECIFIED DEMENTIA WITHOUT BEHAVIORAL 06/13/2019 KIKO QUEZADA FACC, ALI FACP CCDS Ot G81.91 HEMIPLEGIA, UNSPECIFIED AFFECTING RIGHT 06/13/2019 KIKO UQEZADA FACC, ALI FACP CCDS Ot I10 ESSENTIAL (PRIMARY) HYPERTENSION 06/13/2019 KIKO QUEZADA FACC, ALI FACP CCDS Ot I21.4 NON-ST ELEVATION (NSTEMI) MYOCARDIAL INF 06/13/2019 KIKO QUEZADA FACC, ALI FACP CCDS Ot I25.10 ATHSCL HEART DISEASE OF [place] CORONARY 06/13/2019 KIKO QUEZADA FACC, ALI FACP CCDS Ot 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 06/13/2019 KIKO QUEZADA FACC, ALI FACP CCDS Ot I65.22 OCCLUSION AND STENOSIS OF LEFT CAROTID A 06/13/2019 KIKO QUEZADA FACC, ALI FACP CCDS Ot 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 06/13/2019 KIKO QUEZADA FACC, CHRISTINE FACP CCDS Ot J18.9 PNEUMONIA, UNSPECIFIED ORGANISM 06/13/2019 KIKO QUEZADA FACC, ALI FACP CCDS Ot J96.01 ACUTE RESPIRATORY FAILURE WITH HYPOXIA 06/13/2019 KIKO QUEZADA FACC, ALI FACP CCDS Ot N18.2 CHRONIC KIDNEY DISEASE, STAGE 2 (MILD) 06/13/2019 KIKO QUEZADA FACC, ALI FACP CCDS Ot R41.82 ALTERED MENTAL STATUS, UNSPECIFIED 06/13/2019 KIKO SANTOS, ALI FACP CCDS Ot Z79.84 SENIOR CARE (CURRENT) USE OF ORAL HYPOGLYC 06/13/2019 KIKO SANTOS, ALI FACP CCDS Ot Z87.891 PERSONAL HISTORY OF NICOTINE DEPENDENCE 06/13/2019 KIKO QUEZADA FACC, CHRISTINE FACP CCDS Ot A41.9 SEPSIS, UNSPECIFIED ORGANISM 06/13/2019 KIKO SANTOS, ALI FACP CCDS Ot D64.9 ANEMIA, UNSPECIFIED 06/13/[address] 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 06/13/2019 KIKO SANTOS, ALI FACP CCDS Ot E87.2 ACIDOSIS 06/13/2019 KIKO SANTOS, ALI FACP CCDS Ot F03.90 UNSPECIFIED DEMENTIA WITHOUT BEHAVIORAL 06/13/2019 KIKO QUEZADA FACC, ALI FACP CCDS Ot G81.91 HEMIPLEGIA, UNSPECIFIED AFFECTING RIGHT 06/13/2019 KIKO QUEZADA FACC, ALI FACP CCDS Ot I10 ESSENTIAL (PRIMARY) HYPERTENSION 06/13/2019 KIKO QUEZADA FACC, ALI FACP CCDS Ot I21.4 NON-ST ELEVATION (NSTEMI) MYOCARDIAL INF 06/13/2019 KIKO QUEZADA FACC, ALI FACP CCDS Ot I25.10 ATHSCL HEART DISEASE OF [place] CORONARY 06/13/2019 KIKO SANTOS, ALI FACP CCDS Ot 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 06/13/2019 KIKO QUEZADA FACC, ALI FACP CCDS Ot I65.22 OCCLUSION AND STENOSIS OF LEFT CAROTID A 06/13/2019 KIKO QUEZADA FACC, ALI FACP CCDS Ot 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 06/13/2019 KIKO QUEZADA FACC, ALI FACP CCDS Ot J18.9 PNEUMONIA, UNSPECIFIED ORGANISM 06/13/2019 KIKO SANTOS, ALI FACP CCDS Ot J96.01 ACUTE RESPIRATORY FAILURE WITH HYPOXIA 06/13/2019 KIKO QUEZADA FACC, ALI FACP CCDS Ot N18.2 CHRONIC KIDNEY DISEASE, STAGE 2 (MILD) 06/13/2019 KIKO QUEZADA FACC, ALI FACP CCDS Ot R41.82 ALTERED MENTAL STATUS, UNSPECIFIED 06/13/2019 KIKO QUEZADA FACC, ALI FACP CCDS Ot 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 06/13/2019 KIKO QUEZADA FACC, ALI FACP CCDS Ot Z87.891 PERSONAL HISTORY OF NICOTINE DEPENDENCE 06/13/2019 KIKO QUEZADA FACC, ALI FACP CCDS Ot A41.9 SEPSIS, UNSPECIFIED ORGANISM 06/13/2019 KIKO QUEZADA FACC, ALI FACP CCDS Ot D64.9 ANEMIA, UNSPECIFIED 06/13/2019 KIKO QUEZADA FACC, ALI FACP CCDS Ot 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 06/13/2019 KIKO SANTOS, ALI FACP CCDS Ot E87.2 ACIDOSIS 06/13/2019 KIKO SANTOS, ALI FACP CCDS Ot F03.90 UNSPECIFIED DEMENTIA WITHOUT BEHAVIORAL 06/13/2019 KIKO SANTOS, ALI FACP CCDS Ot G81.91 HEMIPLEGIA, UNSPECIFIED AFFECTING RIGHT 06/13/2019 KIKO QUEZADA FACC, ALI FACP CCDS Ot I10 ESSENTIAL (PRIMARY) HYPERTENSION 06/13/2019 KIKO QUEZADA FACC, ALI FACP CCDS Ot I21.4 NON-ST ELEVATION (NSTEMI) MYOCARDIAL INF 06/13/2019 KIKO QUEZADA FACC, ALI FACP CCDS Ot I25.10 ATHSCL HEART DISEASE OF [place] CORONARY 06/13/2019 KIKO QUEZADA FACC, CHRISTINE FACP CCDS Ot 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 06/13/2019 KIKO QUEZADA FACC, ALI FACP CCDS Ot I65.22 OCCLUSION AND STENOSIS OF LEFT CAROTID A 06/13/2019 KIKO QUEZADA FACC, ALI FACP CCDS Ot 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 06/13/2019 KIKO QUEZADA FACC, ALI FACP CCDS Ot J18.9 PNEUMONIA, UNSPECIFIED ORGANISM 06/13/2019 KIKO QUEZADA FACC, ALI FACP CCDS Ot J96.01 ACUTE RESPIRATORY FAILURE WITH HYPOXIA 06/13/2019 KIKO QUEZADA FACC, ALI FACP CCDS Ot N18.2 CHRONIC KIDNEY DISEASE, STAGE 2 (MILD) 06/13/2019 KIKO QUEZADA FACC, ALI FACP CCDS Ot R41.82 ALTERED MENTAL STATUS, UNSPECIFIED 06/13/2019 KIKO QUEZADA FACC, ALI FACP CCDS Ot Z79.84 SENIOR CARE (CURRENT) USE OF ORAL HYPOGLYC 06/13/2019 KIKO QUEZADA FACC, ALI FACP CCDS Ot Z87.891 PERSONAL HISTORY OF NICOTINE DEPENDENCE 06/13/2019 KIKO QUEZADA FACC, CHRISTINE FACP CCDS Ot A41.9 SEPSIS, UNSPECIFIED ORGANISM 06/13/2019 KIKO QUEZADA FACC, ALI FACP CCDS Ot D64.9 ANEMIA, UNSPECIFIED 06/13/2019 KIKO SANTOS, ALI FACP CCDS Ot 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 06/13/2019 KIKO SANTOS, ALI FACP CCDS Ot E87.2 ACIDOSIS 06/13/2019 KIKO QUEZADA FACC, ALI FACP CCDS Ot F03.90 UNSPECIFIED DEMENTIA WITHOUT BEHAVIORAL 06/13/2019 KIKO QUEZADA FACC, ALI FACP CCDS Ot G81.91 HEMIPLEGIA, UNSPECIFIED AFFECTING RIGHT 06/13/2019 KIKO QUEZADA FACC, ALI FACP CCDS Ot I10 ESSENTIAL (PRIMARY) HYPERTENSION 06/13/2019 KIKO QUEZADA FACC, ALI FACP CCDS Ot I21.4 NON-ST ELEVATION (NSTEMI) MYOCARDIAL INF 06/13/2019 KIKO QUEZADA FACC, ALI FACP CCDS Ot I25.10 ATHSCL HEART DISEASE OF [place] CORONARY 06/13/2019 KIKO QUEZADA FACC, ALI FACP CCDS Ot 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, ALI FACP CCDS Ot J96.01 ACUTE RESPIRATORY FAILURE WITH HYPOXIA 06/13/[address] [facility], ALI FACP CCDS Ot N18.2 CHRONIC KIDNEY DISEASE, STAGE 2 (MILD) 06/13/2019 KIKO SANTOS, ALI FACP CCDS Ot R41.82 ALTERED MENTAL STATUS, UNSPECIFIED 06/13/[address] 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, ALI FACP CCDS Ot D64.9 ANEMIA, UNSPECIFIED 06/14/[address] 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, ALI FACP CCDS Ot G81.91 HEMIPLEGIA, UNSPECIFIED AFFECTING RIGHT 06/14/[address] 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, ALI FACP CCDS Ot J18.9 PNEUMONIA, UNSPECIFIED ORGANISM 06/14/[address] [facility], ALI FACP CCDS Ot J96.01 ACUTE RESPIRATORY FAILURE WITH HYPOXIA 06/14/[address] [facility], ALI FACP CCDS Ot N18.2 CHRONIC KIDNEY DISEASE, STAGE 2 (MILD) 06/14/[address] [facility], ALI FACP CCDS Ot R41.82 ALTERED MENTAL STATUS, UNSPECIFIED 06/14/[address] [facility], ALI FACP CCDS Ot Z79.84 SENIOR CARE (CURRENT) USE OF ORAL HYPOGLYC 06/14/[address] [facility], ALI FACP CCDS Ot Z87.891 PERSONAL HISTORY OF NICOTINE DEPENDENCE 06/14/[address] [facility], ALI FACP CCDS Ot A41.9 SEPSIS, UNSPECIFIED ORGANISM 06/14/[address] [facility], ALI FACP CCDS Ot D64.9 ANEMIA, UNSPECIFIED 06/14/[address] 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, ALI FACP CCDS Ot E87.2 ACIDOSIS 06/14/[address] [facility], ALI FACP CCDS Ot F03.90 UNSPECIFIED DEMENTIA WITHOUT BEHAVIORAL 06/14/[address] [facility], ALI FACP CCDS Ot G81.91 HEMIPLEGIA, UNSPECIFIED AFFECTING RIGHT 06/14/[address] [facility], ALI FACP CCDS Ot I10 ESSENTIAL (PRIMARY) HYPERTENSION 06/14/2019 KIKO SANTOS, ALI FACP CCDS Ot I21.4 NON-ST ELEVATION (NSTEMI) MYOCARDIAL INF 06/14/[address] [facility], ALI FACP CCDS Ot I25.10 ATHSCL HEART DISEASE OF [place] CORONARY 06/14/[address] 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, ALI FACP CCDS Ot I65.22 OCCLUSION AND STENOSIS OF LEFT CAROTID A 06/14/[address] 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, ALI FACP CCDS Ot J18.9 PNEUMONIA, UNSPECIFIED ORGANISM 06/14/[address] [facility], ALI FACP CCDS Ot J96.01 ACUTE RESPIRATORY FAILURE WITH HYPOXIA 06/14/[address] [facility], ALI FACP CCDS Ot N18.2 CHRONIC KIDNEY DISEASE, STAGE 2 (MILD) 06/14/[address] [facility], ALI FACP CCDS Ot R41.82 ALTERED MENTAL STATUS, UNSPECIFIED 06/14/[address] 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, ALI FACP CCDS Ot Z87.891 PERSONAL HISTORY OF NICOTINE DEPENDENCE 06/15/[address] [facility], ALI FACP CCDS Ot A41.9 SEPSIS, UNSPECIFIED ORGANISM 06/15/[address] [facility], ALI FACP CCDS Ot D64.9 ANEMIA, UNSPECIFIED 06/15/[address] 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, ALI FACP CCDS Ot E87.2 ACIDOSIS 06/15/[address] [facility], ALI FACP CCDS Ot F03.90 UNSPECIFIED DEMENTIA WITHOUT BEHAVIORAL 06/15/[address] [facility], ALI FACP CCDS Ot G81.91 HEMIPLEGIA, UNSPECIFIED AFFECTING RIGHT 06/15/[address] [facility], ALI FACP CCDS Ot I10 ESSENTIAL (PRIMARY) HYPERTENSION 06/15/[address] [facility], ALI FACP CCDS Ot I21.4 NON-ST ELEVATION (NSTEMI) MYOCARDIAL INF 06/15/[address] [facility], ALI FACP CCDS Ot I25.10 ATHSCL HEART DISEASE OF [place] CORONARY 06/15/[address] 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, ALI FACP CCDS Ot I65.22 OCCLUSION AND STENOSIS OF LEFT CAROTID A 06/15/[address] 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, ALI FACP CCDS Ot J18.9 PNEUMONIA, UNSPECIFIED ORGANISM 06/15/[address] [facility], ALI FACP CCDS Ot J96.01 ACUTE RESPIRATORY FAILURE WITH HYPOXIA 06/15/[address] [facility], ALI FACP CCDS Ot N18.2 CHRONIC KIDNEY DISEASE, STAGE 2 (MILD) 06/15/[address] [facility], ALI FACP CCDS Ot R41.82 ALTERED MENTAL STATUS, UNSPECIFIED 06/15/[address] [facility], ALI FACP CCDS Ot 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 06/15/[address] [facility], ALI FACP CCDS Ot Z87.891 PERSONAL HISTORY OF NICOTINE DEPENDENCE 06/15/[address] [facility], ALI FACP CCDS Ot A41.9 SEPSIS, UNSPECIFIED ORGANISM 06/15/[address] [facility], ALI FACP CCDS Ot D64.9 ANEMIA, UNSPECIFIED 06/15/[address] 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, ALI FACP CCDS Ot E87.2 ACIDOSIS 06/15/[address] [facility], ALI FACP CCDS Ot F03.90 UNSPECIFIED DEMENTIA WITHOUT BEHAVIORAL 06/15/[address] [facility], ALI FACP CCDS Ot G81.91 HEMIPLEGIA, UNSPECIFIED AFFECTING RIGHT 06/15/[address] [facility], ALI FACP CCDS Ot I10 ESSENTIAL (PRIMARY) HYPERTENSION 06/15/[address] [facility], ALI FACP CCDS Ot I21.4 NON-ST ELEVATION (NSTEMI) MYOCARDIAL INF 06/15/[address] [facility], ALI FACP CCDS Ot I25.10 ATHSCL HEART DISEASE OF [place] CORONARY 06/15/[address] 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, ALI FACP CCDS Ot I65.22 OCCLUSION AND STENOSIS OF LEFT CAROTID A 06/15/[address] 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, ALI FACP CCDS Ot J18.9 PNEUMONIA, UNSPECIFIED ORGANISM 06/15/[address] [facility], ALI FACP CCDS Ot J96.01 ACUTE RESPIRATORY FAILURE WITH HYPOXIA 06/15/[address] [facility], ALI FACP CCDS Ot N18.2 CHRONIC KIDNEY DISEASE, STAGE 2 (MILD) 06/15/[address] [facility], ALI FACP CCDS Ot R41.82 ALTERED MENTAL STATUS, UNSPECIFIED 06/15/[address] [facility], ALI FACP CCDS Ot Z79.84 SENIOR CARE (CURRENT) USE OF ORAL HYPOGLYC 06/15/[address] [facility], ALI FACP CCDS Ot Z87.891 PERSONAL HISTORY OF NICOTINE DEPENDENCE 06/16/[address] [facility], ALI FACP CCDS Ot A41.9 SEPSIS, UNSPECIFIED ORGANISM 06/16/[address] [facility], ALI FACP CCDS Ot D64.9 ANEMIA, UNSPECIFIED 06/16/[address] 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, ALI FACP CCDS Ot E87.2 ACIDOSIS 06/16/[address] [facility], ALI FACP CCDS Ot F03.90 UNSPECIFIED DEMENTIA WITHOUT BEHAVIORAL 06/16/[address] [facility], ALI FACP CCDS Ot G81.91 HEMIPLEGIA, UNSPECIFIED AFFECTING RIGHT 06/16/[address] [facility], ALI FACP CCDS Ot I10 ESSENTIAL (PRIMARY) HYPERTENSION 06/16/[address] [facility], ALI FACP CCDS Ot I21.4 NON-ST ELEVATION (NSTEMI) MYOCARDIAL INF 06/16/[address] 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, ALI FACP CCDS Ot J18.9 PNEUMONIA, UNSPECIFIED ORGANISM 06/16/[address] [facility], ALI FACP CCDS Ot J96.01 ACUTE RESPIRATORY FAILURE WITH HYPOXIA 06/16/[address] [facility], ALI FACP CCDS Ot N18.2 CHRONIC KIDNEY DISEASE, STAGE 2 (MILD) 06/16/[address] [facility], ALI FACP CCDS Ot R41.82 ALTERED MENTAL STATUS, UNSPECIFIED 06/16/[address] [facility], ALI FACP CCDS Ot Z79.84 SENIOR CARE (CURRENT) USE OF ORAL HYPOGLYC 06/16/[address] [facility], ALI FACP CCDS Ot Z87.891 PERSONAL HISTORY OF NICOTINE DEPENDENCE 06/17/[address] [facility], ALI FACP CCDS Ot A41.9 SEPSIS, UNSPECIFIED ORGANISM 06/17/[address] [facility], ALI FACP CCDS Ot D64.9 ANEMIA, UNSPECIFIED 06/17/[address] 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, ALI FACP CCDS Ot E87.2 ACIDOSIS 06/17/[address] [facility] [place] FACP CCDS Ot F03.90 UNSPECIFIED DEMENTIA WITHOUT BEHAVIORAL 06/17/[address] [facility] [place] FACP CCDS Ot G81.91 HEMIPLEGIA, UNSPECIFIED AFFECTING RIGHT 06/17/[address] [facility] [place] FACP CCDS Ot I10 ESSENTIAL (PRIMARY) HYPERTENSION 06/17/[address] [facility] [place] FACP CCDS Ot I21.4 NON-ST ELEVATION (NSTEMI) MYOCARDIAL INF 06/17/[address] [facility], [place] FACP CCDS Ot I25.10 ATHSCL HEART DISEASE OF [place] CORONARY 06/17/[address] 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, [place] FACP CCDS Ot I65.22 OCCLUSION AND STENOSIS OF LEFT CAROTID A 06/17/[address] 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, [place] FACP CCDS Ot J18.9 PNEUMONIA, UNSPECIFIED ORGANISM 06/17/[address] [facility] [place] FACP CCDS Ot J96.01 ACUTE RESPIRATORY FAILURE WITH HYPOXIA 06/17/2019 KIKO [facility]ZADA [facility], [place] FACP CCDS Ot N18.2 CHRONIC KIDNEY DISEASE, STAGE 2 (MILD) 06/17/2019 KIKO QUEZADA [facility], [place] FACP CCDS Ot R41.82 ALTERED MENTAL STATUS, UNSPECIFIED 06/17/2019 KIKO SANTOS, [place] FACP CCDS Ot Z79.84 SENIOR CARE (CURRENT) USE OF ORAL HYPOGLYC 06/17/2019 KIKO SANTOS, [place] FACP CCDS Ot Z87.891 PERSONAL HISTORY OF NICOTINE DEPENDENCE Procedures Code Description Performed By Per formed On IN SPECTION OF HEART, PERCUTANEOUS APPROA 06/11/2019 [id number] ME ASURE OF CARDIAC SAMPL PRESSURE, L H 06/11/2019 [id number] [place] UOROSCOPY OF MULT COR ART USING L OSM 06/11/2019 [id number] [place] UOROSCOPY OF LEFT HEART USING LOW OSMO 06/11/2019 Results Test Result Range Complete blood count (CBC) with automate d white blood cell (WBC) differential - 06/11/19 11:55 Blood leukocytes automated count (number/volume) 10.7 10*3/uL 4.3-11.0 Blood erythrocytes automated count (number/volume) 3.47 10*6/uL 4.35-5.85 Venous blood hemoglobin measurement (mass/volume) 10.7 g/dL 13.3-17.7 Blood hematocrit (volume fraction) 34 % 40-54 Automated erythrocyte mean corpuscular volume 97 [ foz_us] 80-99 Automated erythrocyte mean corpuscular h emoglobin (mass per erythrocyte) 31 pg 25-34 Automated erythrocyte mean corpuscular h emoglobin concentration measurement (mass/volume) 32 g/dL 32-36 Automated erythrocyte distribution width ratio 12. 9 % 10.0- 14.5 Automated blood platelet count (count/volume) 328 10*3/uL 130-400 Automated blood platelet mean volume measurement 9.7 [foz_us] 7.4-10.4 Automated blood neutrophils/100 leukocytes 80 % 42-75 Automated blood lymphocytes/100 leukocytes 11 % 12-44 Blood monocytes/100 leukocytes 8 % 0-12 Automated blood eosinophils/100 leukocytes 1 % 0-10 Automated blood basophils/100 leukocytes 0 % 0-10 Blood neutrophils automated count (number/volume) 8.5 10*3 1.8-7.8 Blood lymphocytes automated count (number/volume) 1.2 10*3 1.0-4.0 Blood monocytes automated count (number/volume) 0. 9 10*3 0.0-1.0 Automated eosinophil count 0.1 10*3/uL 0 .0-0.3 Automated blood basophil count (count/volume) 0.0 10*3/uL 0.0-0.1 PT panel in platelet poor plasma by coag ulation assay - 06/11/19 11:55 Prothrombin time (PT) in platelet poor plasma by coagu lation assay 14.5 s 12.2-14.7 INR in platelet poor plasma or blood by coagulation as say 1.1 0.8-1.4 Activated partial thromboplastin time (a PTT) in platelet poor plasma bycoagulation assay - 06/11/19 11:55 Activated partial thromboplastin time (a PTT) in platelet poor plasma bycoagulation assay 28 s 24-35 Comprehensive metabolic panel - 06/11/19 11:55 Serum or plasma sodium measurement (moles/volume) 136 mmol/L 135-145 Serum or plasma potassium measurement (moles/volume) 3.8 mmol/L 3.6-5.0 Serum or plasma chloride measurement (moles/volume) 102 mmol/L 98-107 Carbon dioxide 25 mmol/L 21-32 Serum or plasma anion gap determination (moles/volume) 9 mmol/L 5-14 Serum or plasma urea nitrogen measurement (mass/volume ) 11 mg/dL 7-18 Serum or plasma creatinine measurement (mass/volume) 1.35 mg/dL 0.60-1.30 Serum or plasma urea nitrogen/creatinine mass ratio 8 NRG Serum or plasma creatinine measurement w ith calculation of estimated glomerular filtration rate 51 NRG Serum or plasma glucose measurement (mass/volume) 185 mg/dL 70-105 Serum or plasma calcium measurement (mass/volume) 8.4 mg/dL 8.5-10.1 Serum or plasma total bilirubin measurement (mass/volu me) 0.3 mg/dL 0.1-1.0 Serum or plasma alkaline phosphatase cesario surement (enzymatic activity/volume) 58 U/L 40-136 Serum or plasma aspartate aminotransfera se measurement (enzymatic activity/volume) 19 U/L 5-34 Serum or plasma alanine aminotransferase measurement (enzymatic activity/volume) 12 U/L 0-55 Serum or plasma protein measurement (mass/volume) 7.0 g/dL 6.4-8.2 Serum or plasma albumin measurement (mass/volume) 3.4 g/dL 3.2-4.5 CALCIUM CORRECTED 8.9 mg/dL 8.5-10.1 Magnesium - 06/11/19 11:55 Magnesium 1.8 mg/dL 1.6-2.4 Serum or plasma lithium measurement (mol es/volume) - 06/11/19 11:55 BNP PT 717.0 pg/mL <100.0 Myoglobin, serum - 06/11/19 11:55 Myoglobin, serum 401.6 ng/mL 10.0-92.0 Serum or plasma troponin i.cardiac measu rement (mass/volume) - 06/11/19 11:55 Serum or plasma troponin i.cardiac measurement (mass/v olume) 1.726 ng/mL <0.028 Arterial blood gas measurement - 0 20:49 Blood pCO2 33 mm[Hg] 35-45 Blood pO2 49 mm[Hg] 79-93 Arterial blood bicarbonate measurement (moles/volume) 22 mmol/L 23-27 Arterial blood base excess by calculation -2.0 mmo l/L -2.5-2.5 Arterial blood oxygen saturation measurement 83 % 94-100 * Inhaled oxygen flow rate 10L NRG Arterial blood pH measurement with patient temperature correction 7.43 7.37-7.43 Arterial blood carbon dioxide, total measurement (mole s/volume) 22.9 mmol/L 21.0-31.0 Body site LEFT RADIAL NRG Assessment of wrist artery patency prior to arterial p uncture YES-POS NRG Setting of ventilation mode NO NR G Measurement of body temperature 35.9 NRG PT panel in platelet poor plasma by coag ulation assay - 06/11/19 21:00 Prothrombin time (PT) in platelet poor plasma by coagu lation assay 14.8 s 12.2-14.7 INR in platelet poor plasma or blood by coagulation as say 1.1 0.8-1.4 Complete blood count (CBC) with automate d white blood cell (WBC) differential - 06/11/19 21:00 Blood leukocytes automated count (number/volume) 20.7 10*3/uL 4.3-11.0 Blood erythrocytes automated count (number/volume) 3.93 10*6/uL 4.35-5.85 Venous blood hemoglobin measurement (mass/volume) 12.0 g/dL 13.3-17.7 Blood hematocrit (volume fraction) 37 % 40-54 Automated erythrocyte mean corpuscular volume 95 [ foz_us] 80-99 Automated erythrocyte mean corpuscular h emoglobin (mass per erythrocyte) 31 pg 25-34 Automated erythrocyte mean corpuscular h emoglobin concentration measurement (mass/volume) 32 g/dL 32-36 Automated erythrocyte distribution width ratio 13. 3 % 10.0- 14.5 Automated blood platelet count (count/volume) 411 10*3/uL 130-400 Automated blood platelet mean volume measurement 9.7 [foz_us] 7.4-10.4 Automated blood neutrophils/100 leukocytes 81 % 42-75 Automated blood lymphocytes/100 leukocytes 13 % 12-44 Blood monocytes/100 leukocytes 6 % 0-12 Automated blood eosinophils/100 leukocytes 1 % 0-10 Automated blood basophils/100 leukocytes 0 % 0-10 Blood neutrophils automated count (number/volume) 16.7 10*3 1.8-7.8 Blood lymphocytes automated count (number/volume) 2.6 10*3 1.0-4.0 Blood monocytes automated count (number/volume) 1. 2 10*3 0.0-1.0 Automated eosinophil count 0.1 10*3/uL 0 .0-0.3 Automated blood basophil count (count/volume) 0.1 10*3/uL 0.0-0.1 Comprehensive metabolic panel - 06/11/19 21:00 Serum or plasma sodium measurement (moles/volume) 134 mmol/L 135-145 Serum or plasma potassium measurement (moles/volume) 5.2 mmol/L 3.6-5.0 Serum or plasma chloride measurement (moles/volume) 100 mmol/L 98-107 Carbon dioxide 19 mmol/L 21-32 Serum or plasma anion gap determination (moles/volume) 15 mmol/L 5-14 Serum or plasma urea nitrogen measurement (mass/volume ) 12 mg/dL 7-18 Serum or plasma creatinine measurement (mass/volume) 1.31 mg/dL 0.60-1.30 Serum or plasma urea nitrogen/creatinine mass ratio 9 NRG Serum or plasma creatinine measurement w ith calculation of estimated glomerular filtration rate 53 NRG Serum or plasma glucose measurement (mass/volume) 156 mg/dL 70-105 Serum or plasma calcium measurement (mass/volume) 8.4 mg/dL 8.5-10.1 Serum or plasma total bilirubin measurement (mass/volu me) 0.4 mg/dL 0.1-1.0 Serum or plasma alkaline phosphatase cesario surement (enzymatic activity/volume) 61 U/L 40-136 Serum or plasma aspartate aminotransfera se measurement (enzymatic activity/volume) 44 U/L 5-34 Serum or plasma alanine aminotransferase measurement (enzymatic activity/volume) 15 U/L 0-55 Serum or plasma protein measurement (mass/volume) 8.0 g/dL 6.4-8.2 Serum or plasma albumin measurement (mass/volume) 3.2 g/dL 3.2-4.5 CALCIUM CORRECTED 9.0 mg/dL 8.5-10.1 Serum or plasma phosphate measurement (m ass/volume) - 06/11/19 21:00 Serum or plasma phosphate measurement (mass/volume) 2.6 mg/dL 2.3-4.7 Magnesium - 06/11/19 21:00 Magnesium 1.9 mg/dL 1.6-2.4 Blood lactic acid measurement (moles/vol ume) - 06/11/19 22:00 Blood lactic acid measurement (moles/volume) 2.77 mmol/L 0.50-2.00 PROCALCITONIN (PCT) - 06/11/19 22:00 PROCALCITONIN (PCT) 0.16 ng/mL <0.10 Bacterial blood culture - 06/11/19 22:00 Bacterial blood culture NG [facility] Influenza virus A and B antigen detectio n - 06/11/19 22:04 FLU RESULT NEGATIVE FOR INFLUENZA A AND B ANTIGENS BY IA [facility] Methicillin resistant Staphylococcus aur eus (MRSA) screening culture - 06/11/19 22:04 Methicillin resistant Staphylococcus aureus (MRSA) scr eening culture NEG [facility] RESPIRATORY VIRUS PANEL - 06/11/19 22:04 Serum ragweed IgE antibody assay Not Detected Not Detected Serum or plasma aripiprazole measurement (mass/volume) Not Detected Not Detected PARAINFLU 3 PCR Not Detected Not Detect ed METAPNEUMO PCR Not Detected Not Detecte d Adenovirus detection, CSF, PCR Not Detected Not Detected INFLUENZA A PCR Not Detected Not Detect ed INFLUENZA B PCR Not Detected Not Detect ed Bacterial blood culture - 06/11/19 22:20 Bacterial blood culture NG NRG Arterial blood gas measurement - 0 23:32 Blood pCO2 32 mm[Hg] 35-45 Blood pO2 299 mm[Hg] 79-93 Arterial blood bicarbonate measurement (moles/volume) 23 mmol/L 23-27 Arterial blood base excess by calculation -1.1 mmo l/L -2.5-2.5 Arterial blood oxygen saturation measurement 100 % 94-100 * Inhaled oxygen flow rate 100% NRG Arterial blood pH measurement with patient temperature correction 7.45 7.37-7.43 Arterial blood carbon dioxide, total measurement (mole s/volume) 23.5 mmol/L 21.0-31.0 Body site LEFT RADIAL NRG Assessment of wrist artery patency prior to arterial p uncture YES-POS NRG Setting of ventilation mode NO NR G Measurement of body temperature 36.0 NRG Serum or plasma lactate measurement (mol es/volume) - 06/12/19 00:02 Serum or plasma lactate measurement (moles/volume) 2.26 mmol/L 0.50-2.00 Complete blood count (CBC) with automate d white blood cell (WBC) differential - 06/12/19 02:45 Blood leukocytes automated count (number/volume) 16.7 10*3/uL 4.3-11.0 Blood erythrocytes automated count (number/volume) 3.53 10*6/uL 4.35-5.85 Venous blood hemoglobin measurement (mass/volume) 10.9 g/dL 13.3-17.7 Blood hematocrit (volume fraction) 33 % 40-54 Automated erythrocyte mean corpuscular volume 95 [ foz_us] 80-99 Automated erythrocyte mean corpuscular h emoglobin (mass per erythrocyte) 31 pg 25-34 Automated erythrocyte mean corpuscular h emoglobin concentration measurement (mass/volume) 33 g/dL 32-36 Automated erythrocyte distribution width ratio 13. 0 % 10.0- 14.5 Automated blood platelet count (count/volume) 343 10*3/uL 130-400 Automated blood platelet mean volume measurement 9.5 [foz_us] 7.4-10.4 Automated blood neutrophils/100 leukocytes 87 % 42-75 Automated blood lymphocytes/100 leukocytes 7 % 12-44 Blood monocytes/100 leukocytes 6 % 0-12 Automated blood eosinophils/100 leukocytes 0 % 0-10 Automated blood basophils/100 leukocytes 0 % 0-10 Blood neutrophils automated count (number/volume) 14.6 10*3 1.8-7.8 Blood lymphocytes automated count (number/volume) 1.1 10*3 1.0-4.0 Blood monocytes automated count (number/volume) 1. 0 10*3 0.0-1.0 Automated eosinophil count 0.0 10*3/uL 0 .0-0.3 Automated blood basophil count (count/volume) 0.0 10*3/uL 0.0-0.1 Serum or plasma lactate measurement (mol es/volume) - 06/12/19 02:45 Serum or plasma lactate measurement (moles/volume) 2.57 mmol/L 0.50-2.00 Whole blood basic metabolic panel - 05/19 10/04 02:45 Serum or plasma sodium measurement (moles/volume) 137 mmol/L 135-145 Serum or plasma potassium measurement (moles/volume) 3.7 mmol/L 3.6-5.0 Serum or plasma chloride measurement (moles/volume) 100 mmol/L 98-107 Carbon dioxide 23 mmol/L 21-32 Serum or plasma anion gap determination (moles/volume) 14 mmol/L 5-14 Serum or plasma urea nitrogen measurement (mass/volume ) 13 mg/dL 7-18 Serum or plasma creatinine measurement (mass/volume) 1.38 mg/dL 0.60-1.30 Serum or plasma urea nitrogen/creatinine mass ratio 9 NRG Serum or plasma creatinine measurement w ith calculation of estimated glomerular filtration rate 49 NRG Serum or plasma glucose measurement (mass/volume) 145 mg/dL 70-105 Serum or plasma calcium measurement (mass/volume) 8.5 mg/dL 8.5-10.1 Serum or plasma phosphate measurement (m ass/volume) - 06/12/19 02:45 Serum or plasma phosphate measurement (mass/volume) 2.8 mg/dL 2.3-4.7 Magnesium - 06/12/19 02:45 Magnesium 1.7 mg/dL 1.6-2.4 Lipid 1996 panel - 06/12/19 02:45 Serum or plasma triglyceride measurement (mass/volume) 122 mg/dL <150 Serum or plasma cholesterol measurement (mass/volume) 199 mg/dL < 200 Serum or plasma cholesterol in HDL measurement (mass/v olume) 29 mg/dL 40-60 Cholesterol in LDL [mass/volume] in serum or plasma by direct assay 162 mg/dL 1-129 Serum or plasma cholesterol in VLDL measurement (mass/ volume) 24 mg/dL 5-40 Serum or plasma lithium measurement (mol es/volume) - 06/12/19 02:45 BNP PT 1404.5 pg/mL <100.0 Serum or plasma lactate measurement (mol es/volume) - 06/12/19 05:21 Serum or plasma lactate measurement (moles/volume) 1.32 mmol/L 0.50-2.00 Complete urinalysis with reflex to cultu re - 06/12/19 05:55 Urine color determination YELLOW NRG Urine clarity determination CLEAR NR G Urine pH measurement by test strip 5.0 5-9 Specific gravity of urine by test strip 1.015 1.016-1.022 Urine protein assay by test strip, semi-quantitative NEGATIVE NEGATIVE Urine glucose detection by automated test strip NE GATIVE NEGATIVE Erythrocytes detection in urine sediment by light micr oscopy 2+ NEGATIVE Urine ketones detection by automated test strip NE GATIVE NEGATIVE Urine nitrite detection by test strip NEGATIVE NEGATIVE Urine total bilirubin detection by test strip NEGA TIVE NEGATIVE Urine urobilinogen measurement by automated test strip (mass/volume) 0.2 mg/dL < = 1.0 Urine leukocyte esterase detection by dipstick 1+ NEGATIVE Automated urine sediment erythrocyte cou nt by microscopy (number/high power field) [HPF] NRG Automated urine sediment leukocyte count by microscopy (number/high power field) [HPF] NRG Bacteria detection in urine sediment by light microsco py FEW NRG Squamous epithelial cells detection in u rine sediment by light microscopy 2-5 NRG Crystals detection in urine sediment by light microsco py NONE NRG Casts detection in urine sediment by light microscopy PRESENT NRG Mucus detection in urine sediment by light microscopy MODERATE NRG Complete urinalysis with reflex to culture YES NRG Hyaline casts detection in urine sediment by light ahsan roscopy 2-5 NRG Bacterial urine culture - 02/26/20 05:55 Bacterial urine culture NG NRG Complete blood count (CBC) with automate d white blood cell (WBC) differential - 06/13/19 02:58 Blood leukocytes automated count (number/volume) 11.2 10*3/uL 4.3-11.0 Blood erythrocytes automated count (number/volume) 3.30 10*6/uL 4.35-5.85 Venous blood hemoglobin measurement (mass/volume) 10.1 g/dL 13.3-17.7 Blood hematocrit (volume fraction) 31 % 40-54 Automated erythrocyte mean corpuscular volume 93 [ foz_us] 80-99 Automated erythrocyte mean corpuscular h emoglobin (mass per erythrocyte) 31 pg 25-34 Automated erythrocyte mean corpuscular h emoglobin concentration measurement (mass/volume) 33 g/dL 32-36 Automated erythrocyte distribution width ratio 12. 9 % 10.0- 14.5 Automated blood platelet count (count/volume) 283 10*3/uL 130-400 Automated blood platelet mean volume measurement 9.5 [foz_us] 7.4-10.4 Automated blood neutrophils/100 leukocytes 74 % 42-75 Automated blood lymphocytes/100 leukocytes 14 % 12-44 Blood monocytes/100 leukocytes 11 % 0-12 Automated blood eosinophils/100 leukocytes 1 % 0-10 Automated blood basophils/100 leukocytes 0 % 0-10 Blood neutrophils automated count (number/volume) 8.3 10*3 1.8-7.8 Blood lymphocytes automated count (number/volume) 1.6 10*3 1.0-4.0 Blood monocytes automated count (number/volume) 1. 2 10*3 0.0-1.0 Automated eosinophil count 0.1 10*3/uL 0 .0-0.3 Automated blood basophil count (count/volume) 0.0 10*3/uL 0.0-0.1 PT panel in platelet poor plasma by coag ulation assay - 06/13/19 02:58 Prothrombin time (PT) in platelet poor plasma by coagu lation assay 16.8 s 12.2-14.7 INR in platelet poor plasma or blood by coagulation as say 1.3 0.8-1.4 Activated partial thromboplastin time (a PTT) in platelet poor plasma bycoagulation assay - 06/13/19 02:58 Activated partial thromboplastin time (a PTT) in platelet poor plasma bycoagulation assay 44 s 24-35 Whole blood basic metabolic panel - 05/19 11/03 02:58 Serum or plasma sodium measurement (moles/volume) 140 mmol/L 135-145 Serum or plasma potassium measurement (moles/volume) 2.9 mmol/L 3.6-5.0 Serum or plasma chloride measurement (moles/volume) 103 mmol/L 98-107 Carbon dioxide 25 mmol/L -32 Serum or plasma anion gap determination (moles/volume) 12 mmol/L 5-14 Serum or plasma urea nitrogen measurement (mass/volume ) 21 mg/dL 7-18 Serum or plasma creatinine measurement (mass/volume) 1.73 mg/dL 0.60-1.30 Serum or plasma urea nitrogen/creatinine mass ratio 12 NRG Serum or plasma creatinine measurement w ith calculation of estimated glomerular filtration rate 38 NRG Serum or plasma glucose measurement (mass/volume) 136 mg/dL 70-105 Serum or plasma calcium measurement (mass/volume) 8.3 mg/dL 8.5-10.1 Serum or plasma phosphate measurement (m ass/volume) - 06/13/19 02:58 Serum or plasma phosphate measurement (mass/volume) 3.0 mg/dL 2.3-4.7 Magnesium - 06/13/19 02:58 Magnesium 2.3 mg/dL 1.6-2.4 Comprehensive metabolic panel - 06/13/19 05:58 Serum or plasma sodium measurement (moles/volume) 139 mmol/L 135-145 Serum or plasma potassium measurement (moles/volume) 3.0 mmol/L 3.6-5.0 Serum or plasma chloride measurement (moles/volume) 104 mmol/L 98-107 Carbon dioxide 24 mmol/L -32 Serum or plasma anion gap determination (moles/volume) 11 mmol/L 5-14 Serum or plasma urea nitrogen measurement (mass/volume ) 21 mg/dL 7-18 Serum or plasma creatinine measurement (mass/volume) 1.53 mg/dL 0.60-1.30 Serum or plasma urea nitrogen/creatinine mass ratio 14 NRG Serum or plasma creatinine measurement w ith calculation of estimated glomerular filtration rate 44 NRG Serum or plasma glucose measurement (mass/volume) 128 mg/dL 70-105 Serum or plasma calcium measurement (mass/volume) 8.1 mg/dL 8.5-10.1 Serum or plasma total bilirubin measurement (mass/volu me) 0.5 mg/dL 0.1-1.0 Serum or plasma alkaline phosphatase cesario surement (enzymatic activity/volume) 49 U/L 40-136 Serum or plasma aspartate aminotransfera se measurement (enzymatic activity/volume) 18 U/L 5-34 Serum or plasma alanine aminotransferase measurement (enzymatic activity/volume) 10 U/L 0-55 Serum or plasma protein measurement (mass/volume) 6.5 g/dL 6.4-8.2 Serum or plasma albumin measurement (mass/volume) 3.1 g/dL 3.2-4.5 CALCIUM CORRECTED 8.8 mg/dL 8.5-10.1 Serum or plasma lithium measurement (mol es/volume) - 06/13/19 05:58 BNP PT 2205.8 pg/mL <100.0 Serum or plasma potassium measurement (m oles/volume) - 06/13/19 16:30 Serum or plasma potassium measurement (moles/volume) 3.6 mmol/L 3.6-5.0 Complete blood count (CBC) with automate d white blood cell (WBC) differential - 06/14/19 03:00 Blood leukocytes automated count (number/volume) 14.6 10*3/uL 4.3-11.0 Blood erythrocytes automated count (number/volume) 3.35 10*6/uL 4.35-5.85 Venous blood hemoglobin measurement (mass/volume) 10.2 g/dL 13.3-17.7 Blood hematocrit (volume fraction) 31 % 40-54 Automated erythrocyte mean corpuscular volume 94 [ foz_us] 80-99 Automated erythrocyte mean corpuscular h emoglobin (mass per erythrocyte) 30 pg 25-34 Automated erythrocyte mean corpuscular h emoglobin concentration measurement (mass/volume) 33 g/dL 32-36 Automated erythrocyte distribution width ratio 13. 4 % 10.0- 14.5 Automated blood platelet count (count/volume) 287 10*3/uL 130-400 Automated blood platelet mean volume measurement 10.2 [foz_us] 7.4-10.4 Automated blood neutrophils/100 leukocytes 83 % 42-75 Automated blood lymphocytes/100 leukocytes 9 % 12-44 Blood monocytes/100 leukocytes 8 % 0-12 Automated blood eosinophils/100 leukocytes 0 % 0-10 Automated blood basophils/100 leukocytes 0 % 0-10 Blood neutrophils automated count (number/volume) 12.1 10*3 1.8-7.8 Blood lymphocytes automated count (number/volume) 1.4 10*3 1.0-4.0 Blood monocytes automated count (number/volume) 1. 1 10*3 0.0-1.0 Automated eosinophil count 0.0 10*3/uL 0 .0-0.3 Automated blood basophil count (count/volume) 0.0 10*3/uL 0.0-0.1 Whole blood basic metabolic panel - 05/19 12/04 03:00 Serum or plasma sodium measurement (moles/volume) 138 mmol/L 135-145 Serum or plasma potassium measurement (moles/volume) 3.7 mmol/L 3.6-5.0 Serum or plasma chloride measurement (moles/volume) 105 mmol/L 98-107 Carbon dioxide 20 mmol/L 21-32 Serum or plasma anion gap determination (moles/volume) 13 mmol/L 5-14 Serum or plasma urea nitrogen measurement (mass/volume ) 22 mg/dL 7-18 Serum or plasma creatinine measurement (mass/volume) 1.37 mg/dL 0.60-1.30 Serum or plasma urea nitrogen/creatinine mass ratio 16 NRG Serum or plasma creatinine measurement w ith calculation of estimated glomerular filtration rate 50 NRG Serum or plasma glucose measurement (mass/volume) 156 mg/dL 70-105 Serum or plasma calcium measurement (mass/volume) 8.3 mg/dL 8.5-10.1 Serum or plasma phosphate measurement (m ass/volume) - 06/14/19 03:00 Serum or plasma phosphate measurement (mass/volume) 2.5 mg/dL 2.3-4.7 Magnesium - 06/14/19 03:00 Magnesium 2.0 mg/dL 1.6-2.4 Manual absolute plasma cell count - 05/19 12/04 03:00 Blood monocytes/100 leukocytes 5 % NRG Manual blood segmented neutrophils/100 leukocytes 86 % NRG Manual blood lymphocytes/100 leukocytes 9 % NRG Blood erythrocyte morphology finding identification NORMAL NRG Complete blood count (CBC) with automate d white blood cell (WBC) differential - 06/15/19 03:25 Blood leukocytes automated count (number/volume) 9.5 10*3/uL 4.3-11.0 Blood erythrocytes automated count (number/volume) 3.01 10*6/uL 4.35-5.85 Venous blood hemoglobin measurement (mass/volume) 9.3 g/dL 13.3-17.7 Blood hematocrit (volume fraction) 28 % 40-54 Automated erythrocyte mean corpuscular volume 94 [ foz_us] 80-99 Automated erythrocyte mean corpuscular h emoglobin (mass per erythrocyte) 31 pg 25-34 Automated erythrocyte mean corpuscular h emoglobin concentration measurement (mass/volume) 33 g/dL 32-36 Automated erythrocyte distribution width ratio 13. 2 % 10.0- 14.5 Automated blood platelet count (count/volume) 280 10*3/uL 130-400 Automated blood platelet mean volume measurement 10.5 [foz_us] 7.4-10.4 Automated blood neutrophils/100 leukocytes 70 % 42-75 Automated blood lymphocytes/100 leukocytes 15 % 12-44 Blood monocytes/100 leukocytes 11 % 0-12 Automated blood eosinophils/100 leukocytes 4 % 0-10 Automated blood basophils/100 leukocytes 0 % 0-10 Blood neutrophils automated count (number/volume) 6.6 10*3 1.8-7.8 Blood lymphocytes automated count (number/volume) 1.5 10*3 1.0-4.0 Blood monocytes automated count (number/volume) 1. 0 10*3 0.0-1.0 Automated eosinophil count 0.4 10*3/uL 0 .0-0.3 Automated blood basophil count (count/volume) 0.0 10*3/uL 0.0-0.1 Whole blood basic metabolic panel - 05/19 01/04 03:25 Serum or plasma sodium measurement (moles/volume) 140 mmol/L 135-145 Serum or plasma potassium measurement (moles/volume) 3.0 mmol/L 3.6-5.0 Serum or plasma chloride measurement (moles/volume) 105 mmol/L 98-107 Carbon dioxide 24 mmol/L 21-32 Serum or plasma anion gap determination (moles/volume) 11 mmol/L 5-14 Serum or plasma urea nitrogen measurement (mass/volume ) 24 mg/dL 7-18 Serum or plasma creatinine measurement (mass/volume) 1.59 mg/dL 0.60-1.30 Serum or plasma urea nitrogen/creatinine mass ratio 15 NRG Serum or plasma creatinine measurement w ith calculation of estimated glomerular filtration rate 42 NRG Serum or plasma glucose measurement (mass/volume) 156 mg/dL 70-105 Serum or plasma calcium measurement (mass/volume) 8.1 mg/dL 8.5-10.1 Serum or plasma phosphate measurement (m ass/volume) - 06/15/19 03:25 Serum or plasma phosphate measurement (mass/volume) 2.5 mg/dL 2.3-4.7 Magnesium - 06/15/19 03:25 Magnesium 1.9 mg/dL 1.6-2.4 Complete blood count (CBC) with automate d white blood cell (WBC) differential - 06/16/19 05:01 Blood leukocytes automated count (number/volume) 9.2 10*3/uL 4.3-11.0 Blood erythrocytes automated count (number/volume) 3.43 10*6/uL 4.35-5.85 Venous blood hemoglobin measurement (mass/volume) 10.4 g/dL 13.3-17.7 Blood hematocrit (volume fraction) 32 % 40-54 Automated erythrocyte mean corpuscular volume 95 [ foz_us] 80-99 Automated erythrocyte mean corpuscular h emoglobin (mass per erythrocyte) 30 pg 25-34 Automated erythrocyte mean corpuscular h emoglobin concentration measurement (mass/volume) 32 g/dL 32-36 Automated erythrocyte distribution width ratio 13. 5 % 10.0- 14.5 Automated blood platelet count (count/volume) 313 10*3/uL 130-400 Automated blood platelet mean volume measurement 10.3 [foz_us] 7.4-10.4 Automated blood neutrophils/100 leukocytes 67 % 42-75 Automated blood lymphocytes/100 leukocytes 16 % 12-44 Blood monocytes/100 leukocytes 9 % 0-12 Automated blood eosinophils/100 leukocytes 8 % 0-10 Automated blood basophils/100 leukocytes 0 % 0-10 Blood neutrophils automated count (number/volume) 6.1 10*3 1.8-7.8 Blood lymphocytes automated count (number/volume) 1.5 10*3 1.0-4.0 Blood monocytes automated count (number/volume) 0. 8 10*3 0.0-1.0 Automated eosinophil count 0.8 10*3/uL 0 .0-0.3 Automated blood basophil count (count/volume) 0.0 10*3/uL 0.0-0.1 Whole blood basic metabolic panel - 05/06 05:01 Serum or plasma sodium measurement (moles/volume) 139 mmol/L 135-145 Serum or plasma potassium measurement (moles/volume) 3.0 mmol/L 3.6-5.0 Serum or plasma chloride measurement (moles/volume) 101 mmol/L 98-107 Carbon dioxide 23 mmol/L 21-32 Serum or plasma anion gap determination (moles/volume) 15 mmol/L 5-14 Serum or plasma urea nitrogen measurement (mass/volume ) 23 mg/dL 7-18 Serum or plasma creatinine measurement (mass/volume) 1.38 mg/dL 0.60-1.30 Serum or plasma urea nitrogen/creatinine mass ratio 17 NRG Serum or plasma creatinine measurement w ith calculation of estimated glomerular filtration rate 49 NRG Serum or plasma glucose measurement (mass/volume) 141 mg/dL 70-105 Serum or plasma calcium measurement (mass/volume) 8.7 mg/dL 8.5-10.1 Complete blood count (CBC) with automate d white blood cell (WBC) differential - 06/17/19 04:24 Blood leukocytes automated count (number/volume) 10.8 10*3/uL 4.3-11.0 Blood erythrocytes automated count (number/volume) 3.37 10*6/uL 4.35-5.85 Venous blood hemoglobin measurement (mass/volume) 10.3 g/dL 13.3-17.7 Blood hematocrit (volume fraction) 32 % 40-54 Automated erythrocyte mean corpuscular volume 96 [ foz_us] 80-99 Automated erythrocyte mean corpuscular h emoglobin (mass per erythrocyte) 31 pg 25-34 Automated erythrocyte mean corpuscular h emoglobin concentration measurement (mass/volume) 32 g/dL 32-36 Automated erythrocyte distribution width ratio 13. 4 % 10.0- 14.5 Automated blood platelet count (count/volume) 326 10*3/uL 130-400 Automated blood platelet mean volume measurement 10.4 [foz_us] 7.4-10.4 Automated blood neutrophils/100 leukocytes 65 % 42-75 Automated blood lymphocytes/100 leukocytes 18 % 12-44 Blood monocytes/100 leukocytes 10 % 0-12 Automated blood eosinophils/100 leukocytes 6 % 0-10 Automated blood basophils/100 leukocytes 0 % 0-10 Blood neutrophils automated count (number/volume) 7.0 10*3 1.8-7.8 Blood lymphocytes automated count (number/volume) 2.0 10*3 1.0-4.0 Blood monocytes automated count (number/volume) 1. 1 10*3 0.0-1.0 Automated eosinophil count 0.7 10*3/uL 0 .0-0.3 Automated blood basophil count (count/volume) 0.0 10*3/uL 0.0-0.1 Whole blood basic metabolic panel - 06/06 04:24 Serum or plasma sodium measurement (moles/volume) 139 mmol/L 135-145 Serum or plasma potassium measurement (moles/volume) 3.7 mmol/L 3.6-5.0 Serum or plasma chloride measurement (moles/volume) 102 mmol/L 98-107 Carbon dioxide 25 mmol/L 21-32 Serum or plasma anion gap determination (moles/volume) 12 mmol/L 5-14 Serum or plasma urea nitrogen measurement (mass/volume ) 22 mg/dL 7-18 Serum or plasma creatinine measurement (mass/volume) 1.54 mg/dL 0.60-1.30 Serum or plasma urea nitrogen/creatinine mass ratio 14 NRG Serum or plasma creatinine measurement w ith calculation of estimated glomerular filtration rate 44 NRG Serum or plasma glucose measurement (mass/volume) 150 mg/dL 70-105 Serum or plasma calcium measurement (mass/volume) 8.6 mg/dL 8.5-10.1 Encounters ACCT No. Visit Date/Time Discharge Status Pt. Type Provider Facility Loc./Unit Complaint [id number] 06/11/2019 20:49:00 020 15:00:00 DIS Inpatient KIKO QUEZADA FACC, CHRISTINE SMITH CCD S [facility] 4TH N-STEMI [id number] 12/18/2018 12:24:00 019 14:12:00 DIS Emergency BEKAH STEWARD MD [facility] ER FALLEN, HIP SHARIF N [id number] 08/27/2014 12:29:00 015 16:15:00 DIS Emergency IVANA BERNAL DO [facility] ER RT SHOULDER PAIN
--- NOTE | 2019-06-18 13:43 | Physician Query Clarification ---
PQ-Present on Admission Admission/Discharge Admission Date: Jun 11, 2019 at 20:49 Discharge Date: Jun 17, 2019 at 15:00 Question: Sepsis and pneumonia was documented in Dr. Dyer's consult on 06/12. Can you specify if this condition was present on admission? Please document a response in Progress Note or Discharge Summary. 1. Yes - Condition was present at the time of inpatient admission. 2. No - Condition was not present at the time of inpatient admission and it developed during the inpatient stay. 3. W - Provider is unable to clinically determine whether condition was present on admission or not. 4. Other [please specify] PHYSICIAN RESPONSE Condition was Present on Admit: Yes Please remember a lack of response to the above will prompt a phone page by CDI/Coding staff. In responding to this query, please exercise your independent professional judgment. The purpose of this communication is to more accurately reflect the complexity of your patients condition. The fact that a question is asked does not imply that any particular answer is desired or expected. Thank you for your timely response to this clarification. Requestors name: Emily THIS PHYSICIAN QUERY FORM IS A PERMANENT PART OF THE MEDICAL RECORD EMILY GREENE Jun 18, 2019 13:43 ANISHA MALDONADO MD Jun 24, 2019 20:12
--- OUTSIDE RECORDS SUMMARY | 2019-06-18 15:10 | XMS REPORT ---
Author Author [employer] Organization [employer] Address [address] [address] Care Team Providers Care Market Research Coordinator Name Role Phone NO, LOCAL PHYSICIAN Unavailable Unavailable BEKAH STEWARD MD Unavailable Unavailable CHRISTINE GRIMES MA Unavailable Unavailable CHRISTINE GRIMES MA Unavailable Unavailable IVANA BERNAL DO Unavailable Unavailable Allergies No Information Medications Medication Ingredient Drug Dose Dates Status Sig Sig Care Class(es) (Normalized) (Original) Provid er no Aspirin no 325 mg Complete take 325 mg Aspirin (no information (Aspirin Ec information d by mouth (Aspirin Ec phone) (1 source.) 325 Mg) 325 once daily, 325 Mg) 325 Mg Tabec then take Mg Tabec 325 325 mg by Mg ORAL mouth, then Daily take 325 mg by mouth no Multivitami no Complete take 1 Multivitamin (n o information n (Multi information d tablet by (Multi phone) (1 source.) Vitamin mouth once Vitamin Daily) 1 daily, then Daily) 1 Each Tablet take 1 Each Tablet tablet by 1 Tab ORAL mouth Daily Problems Problem Normalized Date of Normalized Normalized Provider Fac ility Classification Problem(s) Problem Problem Problem Sta tus Onset/Resoluti Duration on Fluid and Acidosis 06-13-2019 - Episodic Active ALI KIKO , [facility] Via electrolyte MIKAYLA Parks disorders (5 Hospital - sources.) [place] () Respiratory Acute 06-13-2019 - Episodic Active ALI KIKO , [facility] Via failure; respiratory MIKAYLA Parks insufficiency; failure with Hospital - arrest (adult) hypoxia [place] (5 sources.) ([address]) Allergic Allergy status 06-11-2019 - Episodic Active BEKAH [facility] Via reactions (5 to penicillin MD BIN [place] sources.) [facility] ([address]) Residual Altered mental 06-13-2019 - Episodic Active CHRISTINE Myles , [facility] Via codes; status, MIKAYLA Parks unclassified unspecified Hospital - (5 sources.) [place] ([address]) Deficiency and Anemia, 06-13-2019 - Episodic Active ALI HAMMA D , [facility] Via other anemia unspecified MIKAYLA Parks (5 sources.) [facility] [address] [facility] ([address]) 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 ALI KIKO , [facility] Via of following MIKAYLA Parks cerebrovascula other Hospital - r disease (5 cerebrovascula [place] sources.) r disease ([address]117) 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 ALI HAMMA D , [facility] Via atherosclerosi c heart MIKAYLA Parks s and other disease of Hospital - heart disease kashia [place] (10 sources.) coronary ([address]) artery without angina pectoris Translations: [ CHRONIC TOTAL OCCLUSION OF CORONARY SALTY] Chronic kidney Chronic kidney 06-13-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 ALI KIKO , [facility] Via disease (5 disease, stage MIKAYLA Parks sources.) 2 (mild) [facility] ([address]) Essential Essential 06-11-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 IVANABert VALENCIAO , D O [facility] Via hypertension (primary) [place] (12 sources.) hypertension Hospital - Translations: [place] [ HYPERTENSION (24639) NOS] Paralysis (5 Hemiplegia, 06-13-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 ALI FRED AD , [facility] Via sources.) unspecified MIKAYLA Parks affecting Hospital - right dominant [place] side ([address]) Other Hip pain Episodic Active LOCAL NO Bureau Via non-traumatic [facility] joint Hospital disorders (1 ([address]) source.) Other Knee pain Episodic Active LOCAL NO Bureau Vi a non-traumatic [facility] joint Hospital disorders (1 (22577) source.) Other custodial 06-11-2019 - Episodic Active BEKAH [facility] Via aftercare (5 (current) use MD [place] STEWARD sources.) of aspirin [facility] ([address]) Other intermission coordinator 06-11-2019 - Episodic Active BEKAH [facility] Via aftercare (10 (current) use MD [place] STEWARD sources.) of oral [facility] hypoglycemic [place] drugs ([address]) Acute Non-ST 06-13-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 ALI KIKO , [facility] Via myocardial elevation MIKAYLA Parks infarction (5 (NSTEMI) Hospital - sources.) myocardial [place] infarction ([address]) 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 , [facility] 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 - arteries (5 artery [place] sources.) ([address]) Other Pain in joint, 06-11-2019 - Episodic Active IVANA DOLORES , DO [facility] Via non-traumatic shoulder [facility] joint region Hospital - disorders (4 [place] sources.) ([address]) Other Pain in left 06-11-2019 - Episodic Active BEKAH [facility] (10 [place] sources.) ([address]) Other Pain in left 06-11-2019 - Episodic Active BEKAH [facility] Via non-traumatic knee MD BIN [facility] - disorders (5 [place] sources.) ([address]) Other Pain in limb 06-11-2019 - Episodic Active IVANA DOLORES , DO [facility] Via connective [facility] tissue disease Hospital - (2 sources.) [place] ([address]) Screening and Personal 06-13-2019 - Episodic Active ALI KIKO , [facility] Via history of history of [facility] mental health nicotine Hospital - and substance dependence [place] abuse codes (5 ([address]326) sources.) Other Personal 06-11-2019 - Episodic Active IVANA DOLORES , DO [facility] Via circulatory history of [facility] disease (2 transient Hospital - sources.) ischemic [place] attack (TIA), (83866) and cerebral infarction without residual deficits Pneumonia Pneumonia, 06-13-2019 - Episodic Active ALI KIKO , [facility] Via (except that unspecified [place] ADEBAYOAI [place] caused by organism Hospital - tuberculosis [place] or sexually ([address]137) transmitted disease) (5 sources.) Septicemia Sepsis, 06-13-2019 - Episodic Active ALI KIKO , [facility] Via (except in unspecified [place] FSCAI [place] labor) (5 organism Hospital - sources.) [place] ([address]) Diabetes Type 2 06-13-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 ALI KIKO , [facility] Via mellitus with diabetes [place] FSCAI [place] complications mellitus with Hospital - (5 sources.) diabetic [place] nephropathy (00727) Diabetes Type 2 06-11-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 BEKAH [facility] V ia mellitus diabetes MD [place] STEWARD without mellitus Hospital - complication without [place] (5 sources.) complications (59827) 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-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 BEKAH [facility] Via dementia and dementia MD [place] STEWARD amnestic and without Hospital - other behavioral [place] cognitive disturbance ([address]) disorders (10 sources.) Procedures Procedure Normalized Procedure Procedure Result Performer Facility Date 06-11-2019 FLUOROSCOPY OF LEFT no information no name (no phon e) [facility] HEART USING LOW OSMO [facility] ([address]) 06-11-2019 FLUOROSCOPY OF MULT no information no name (no phon e) [facility] COR ART USING L [facility] ([address]) 06-11-2019 INSPECTION OF HEART, no information no name (no wilberto ne) [facility] PERCUTANEOUS APPROA [facility] ([address]) 06-11-2019 MEASURE OF CARDIAC no information no name (no phone ) [facility] SAMPL PRESSURE, L H [facility] ([address]) 12-18-2018 X-ray of left knee no information BEKAH [place] [facility] Via [facility] ([address]) 12-18-2018 - 12-18-2018 Immunizations Normalized Immunization Date Notes Care Provider Facili ty Immunization Vaccination no information LOCAL NO Bureau Via Translations: [ [facility] vaccine] ([address]) Results The data below is from unstructured sourcesNo relevant diagnostic test, laboratory data and/or discharge summary information available. Vital Signs The data below is from unstructured sources Vital Response Date/Time Temperature (Fahrenheit) 98.2 degree s F (97.6 - 99.5) Temperature (Calculated Celsius) 36. 93650 degrees C (36.4 - 37.5) Temperature Source Temporal Pulse Rate (adult) 60 bpm (60 - 90) Respiratory Rate 20 bpm (12 - 24) O2 Sat by Pulse Oximetry 97 % (88 - 100) Blood Pressure 143/76 mm Hg Pain Pain Intensity 2 Height (Feet) 5 feet Height (Inches) 10 inches Height (Calculated Centimeters) 177. 259708 cm Weight (Pounds) 200 pounds Weight (Calculated Kilograms) 90.718 475 kilograms Calculated BMI 28.69 Vital Response Date/Time Temperature (Fahrenheit) 99.2 degree s F (97.6 - 99.5) 12/18/2018 2:20pm Temperature (Calculated Celsius) 37. 53746 degrees C (36.4 - 37.5) 12/18/2018 2:20pm Temperature Source Tympanic 12/18/2018 2:20pm Pulse Rate (adult) 88 bpm (60 - 90) 12/18/2018 2:20pm Respiratory Rate 18 bpm (12 - 24) 12/18/2018 2:20pm O2 Sat by Pulse Oximetry 98 % (88 - 100) 12/18/2018 2:20pm Blood Pressure 144/66 mm Hg 12/18/2018 2:20pm Blood Pressure Mean 92 mm Hg (65 - 110) 12/18/2018 2:20pm Pain Numeric Pain Scale 5-Moderate Pain 12/18/2018 12:25pm Height (Feet) 5 feet 06/2018 12:25pm Height (Inches) 11.00 inches 12/18/2018 12:25pm Height (Calculated Centimeters) 180. 622224 cm 12/18/2018 12:25pm Weight (Pounds) 194 pounds 12/18/2018 12:25pm Weight (Calculated Grams) 02820.92 gm 12/18/2018 12:25pm Weight (Calculated Kilograms) 87.996 921 kilograms 12/18/2018 12:25pm Weight Method Stated 06/2018 12:25pm Capillary Refill Capillary Refill Less Than 3 Seconds 12/18/2018 12:25pm Height 5 ft 11 in 2018 12:25pm Weight 194 lb 12/18/2018 12:25pm Body Mass Index 27.1 kg/m^2 12/18/2018 12:25pm Vital Response Date/Time Temperature (Fahrenheit) 99.2 degree s F (97.6 - 99.5) 12/18/2018 2:20pm Temperature (Calculated Celsius) 37. 60045 degrees C (36.4 - 37.5) 12/18/2018 2:20pm Temperature Source Tympanic 12/18/2018 2:20pm Pulse Rate (adult) 88 bpm (60 - 90) 12/18/2018 2:20pm Respiratory Rate 18 bpm (12 - 24) 12/18/2018 2:20pm O2 Sat by Pulse Oximetry 98 % (88 - 100) 12/18/2018 2:20pm Blood Pressure 144/66 mm Hg 12/18/2018 2:20pm Blood Pressure Mean 92 mm Hg (65 - 110) 12/18/2018 2:20pm Pain Numeric Pain Scale 5-Moderate Pain 12/18/2018 12:25pm Height (Feet) 5 feet 06/2018 12:25pm Height (Inches) 11.00 inches 12/18/2018 12:25pm Height (Calculated Centimeters) 180. 373054 cm 12/18/2018 12:25pm Weight (Pounds) 194 pounds 12/18/2018 12:25pm Weight (Calculated Grams) 67564.92 gm 12/18/2018 12:25pm Weight (Calculated Kilograms) 87.996 921 kilograms 12/18/2018 12:25pm Weight Method Stated 06/2018 12:25pm Capillary Refill Capillary Refill Less Than 3 Seconds 12/18/2018 12:25pm Height 5 ft 11 in 2018 12:25pm Weight 194 lb 12/18/2018 12:25pm Body Mass Index 27.1 kg/m^2 12/18/2018 12:25pm Interventions No Information Plan of Treatment The data below is from unstructured sources Discharge Date 12/18/18 2:12pm Disposition 01 HOME, SELF-CARE Condition at Discharge Stable Instructions/Education Provided Hip Pain (DC) Knee Pain (DC) Prescriptions See Medication Section Referrals NO,LOCAL PHYSICIAN Order Date: Primary Care Physician Additional Instructions/Education Al l discharge instructions reviewed with patient and/or family. Voiced understanding. 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 There are no fractures. You may take Tylenol/acetaminophen 1000 mg every 8 hours as needed for pain. Follow-up with your Dr. in a few days for recheck. Return for worse pain, weakness, numbness, difficulty with walking or other concerns as needed. Goals No Information Social History No Information Functional Status The data below is from unstructured sourcesNo functional status results.No functional status information available.No functional status information available. Mental Status No Information Encounters Encounter Normalized Encounter Encounter Diagnosis Care Provi sandy Organization Date Type 06-11-2019 Emergency department no information BEKAH MANDEL MD [facility] Via [place] patient visit (no phone) [facility] (no phone) 12-18-2018 Emergency department no information BEKAH MANDEL no organization name - patient visit Work Phone: (no phone) 12-18-2018 12-18-2018 Emergency department no information BEKAH MANDEL MD [facility] [place] - patient visit (no phone) [facility] 12-18-2018 (no phone) 06-11-2019 Evaluation and no information CHRISTINE HOOVER MA TRACEY [facility] [place] management of (no phone) [facility] inpatient (no phone) 06-11-2019 Patient encounter no information CHRISTINE HOOVER MA ADEBAYOA I [facility] [place] procedure (no phone) [facility] (no phone) 12-18-2018 Patient encounter no information no name (no phone) no organization name procedure (no phone) Medical Equipment No Information Payers No Information Advance Directives Directive Response Recor ded Date/Time Advance Directives No 12:43pm Resuscitation Status Full Code 08/27/14 12:43pm Directive Response Recor ded Date/Time Advance Directives No 12:47pm Resuscitation Status Full Code 12/18/18 12:47pm Discharge Instructions No hospital discharge instructions.No hospital discharge instruction information available. Chief Complaint and Reason for Visit Chief Complaint Trauma-Non Activatio n Reason for Visit Left hip pain Left knee pain Additional Source Comments This clinical document has been generated using [employer] software that has been certified by the Office of the National Coordinator for Health Information Technology (ONC 15.99.04.3023.Diam.31.00.0.798561) and the National Committee for Human Service Specialist (NCQA, as an eMeasure certified technology). FOR RECORDS PERTAINING TO PATIENTS WHO ARE OR HAVE BEEN ENROLLED IN A CHEMICAL D EPENDENCY/SUBSTANCE ABUSE PROGRAM, SOME INFORMATION MAY BE OMITTED. This clinica l summary was aggregated from multiple sources. Caution should be exercised in using it in the provision of clinical care. This summary normalizes information from multiple sources, and as a consequence, information in this document may ma terially change the coding, format and clinical context of patient data. In maria tion, data may be omitted in some cases. CLINICAL DECISIONS SHOULD BE BASED ON T HE PRIMARY CLINICAL RECORDS. [employer] provides no warranty or guara ntee of the accuracy or completeness of information in this document.The followi ng information is based on time limited clinical information
--- OUTSIDE RECORDS SUMMARY | 2019-06-18 15:11 | XMS REPORT | Continuity of Care Document ---
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 12/18/2018 BEKAH STEWARD MD Ot Z79.84 MCFP (CURRENT) USE OF ORAL HYPOGLYC 12/18/2018 BEKAH [...] KNEE 12/21/2018 BEKAH STEWARD MD Ot Z79.82 PROCESS MECHANIC (CURRENT) USE OF ASPIRIN 12/21/2018 BEKAH STEWARD MD Ot Z79.84 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 12/21/2018 BEKAH STEWARD MD Ot Z88.0 ALLERGY STATUS TO PENICILLIN 12/24/2018 BEKAH STEWARD MD Ot E11.9 TYPE 2 DIABETES MELLITUS WITHOUT COMPLIC 12/24/2018 BEKAH STEWARD MD Ot F03.90 UNSPECIFIED DEMENTIA WITHOUT BEHAVIORAL 12/24/2018 BEKAH STEWARD MD Ot I10 ESSENTIAL (PRIMARY) HYPERTENSION 12/24/2018 BEKAH STEWARD MD Ot M25.552 PAIN IN LEFT HIP 12/24/2018 BEKAH STEWARD MD Ot M25.562 PAIN IN LEFT KNEE 12/24/2018 BEKAH STEWARD MD Ot 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..] CCDS Ot I25.10 ATHSCL HEART DISEASE OF [place] CORONARY 06/13/2019 KIKO SANTOS, ALI FACP CCDS [...] QUEZADA FACC, ALI FACP CCDS Ot Z79.84 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 06/13/2019 KIKO [...] CCDS Ot I25.10 ATHSCL HEART DISEASE OF [place] CORONARY 06/13/2019 KIKO QUEZADA FACC, CHRISTINE FACP [...] QUEZADA FACC, ALI FACP CCDS Ot Z79.84 MCFP (CURRENT) USE OF ORAL HYPOGLYC 06/13/2019 KIKO [...] CCDS Ot I25.10 ATHSCL HEART DISEASE OF [place] CORONARY 06/13/2019 KIKO QUEZADA FACC, ALI FACP CCDS Ot 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 06/13/2019 KIKO QUEZADA [facility], ALI FACP CCDS Ot I65.22 OCCLUSION AND STENOSIS OF LEFT CAROTID A 06/13/2019 KIKO SANTOS, ALI FACP CCDS Ot 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 06/13/2019 KIKO SANTOS, ALI FACP CCDS Ot J18.9 PNEUMONIA, UNSPECIFIED ORGANISM 06/13/2019 KIKO QUEZADA [facility], ALI FACP CCDS Ot J96.01 ACUTE RESPIRATORY FAILURE WITH HYPOXIA 06/13/2019 KIKO QUEZADA [facility], ALI FACP CCDS Ot N18.2 CHRONIC KIDNEY DISEASE, STAGE 2 (MILD) 06/13/2019 KIKO SANTOS, ALI FACP CCDS Ot R41.82 ALTERED MENTAL STATUS, UNSPECIFIED 06/13/2019 KIKO QUEZADA [facility], ALI FACP CCDS Ot Z79.84 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 06/13/2019 KIKO SANTOS, ALI FACP CCDS Ot Z87.891 PERSONAL HISTORY OF NICOTINE DEPENDENCE 06/14/2019 KIKO SANTOS, ALI FACP CCDS Ot A41.9 SEPSIS, UNSPECIFIED ORGANISM 06/14/2019 KIKO QUEZADA [facility], ALI FACP CCDS Ot D64.9 ANEMIA, UNSPECIFIED 06/14/2019 KIKO QUEZADA [facility], ALI FACP CCDS Ot 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 06/14/2019 KIKO SANTOS, ALI FACP CCDS Ot E87.2 ACIDOSIS 06/14/2019 KIKO SANTOS, ALI FACP CCDS Ot F03.90 UNSPECIFIED DEMENTIA WITHOUT BEHAVIORAL 06/14/2019 KIKO QUEZADA [facility], ALI FACP CCDS Ot G81.91 HEMIPLEGIA, UNSPECIFIED AFFECTING RIGHT 06/14/2019 KIKO QUEZADA [facility], ALI FACP CCDS Ot I10 ESSENTIAL (PRIMARY) HYPERTENSION 06/14/2019 KIKO SANTOS, ALI FACP CCDS Ot I21.4 NON-ST ELEVATION (NSTEMI) MYOCARDIAL INF 06/14/2019 KIKO SANTOS, ALI FACP CCDS Ot I25.10 ATHSCL HEART DISEASE OF [place] CORONARY 06/14/2019 KIKO SANTOS, ALI FACP CCDS Ot 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 06/14/2019 KIKO SANTOSC, ALI FACP CCDS Ot I65.22 OCCLUSION AND STENOSIS OF LEFT CAROTID A 06/14/2019 KIKO QUEZADA [facility], ALI FACP CCDS Ot 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 06/14/2019 KIKO QUEZADA [facility], ALI FACP CCDS Ot J18.9 PNEUMONIA, UNSPECIFIED ORGANISM 06/14/2019 KIKO QUEZADA [facility], ALI FACP CCDS Ot J96.01 ACUTE RESPIRATORY FAILURE WITH HYPOXIA 06/14/2019 KIKO QUEZADA [facility], ALI FACP CCDS Ot N18.2 CHRONIC KIDNEY DISEASE, STAGE 2 (MILD) 06/14/2019 KIKO QUEZADA [facility], ALI FACP CCDS Ot R41.82 ALTERED MENTAL STATUS, UNSPECIFIED 06/14/2019 KIKO QUEZADA [facility], ALI FACP CCDS Ot Z79.84 MCFP (CURRENT) USE OF ORAL HYPOGLYC 06/14/2019 KIKO QUEZADA [facility], ALI FACP CCDS Ot Z87.891 PERSONAL HISTORY OF NICOTINE DEPENDENCE 06/14/2019 KIKO QUEZADA [facility], ALI FACP CCDS Ot A41.9 SEPSIS, UNSPECIFIED ORGANISM 06/14/2019 KIKO QUEZADA [facility], ALI FACP CCDS Ot D64.9 ANEMIA, UNSPECIFIED 06/14/2019 KIKO QUEZADA [facility], ALI FACP CCDS Ot 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 06/14/2019 KIKO QUEZADA [facility], ALI FACP CCDS Ot E87.2 ACIDOSIS 06/14/2019 KIKO QUEZADA [facility], ALI FACP CCDS Ot F03.90 UNSPECIFIED DEMENTIA WITHOUT BEHAVIORAL 06/14/2019 KIKO QUEZADA [facility], ALI FACP CCDS Ot G81.91 HEMIPLEGIA, UNSPECIFIED AFFECTING RIGHT 06/14/2019 KIKO QUEZADA [facility], ALI FACP CCDS Ot I10 ESSENTIAL (PRIMARY) HYPERTENSION 06/14/2019 KIKO SANTOS, ALI FACP CCDS Ot I21.4 NON-ST ELEVATION (NSTEMI) MYOCARDIAL INF 06/14/2019 KIKO QUEZADA [facility], ALI FACP CCDS Ot I25.10 ATHSCL HEART DISEASE OF [place] CORONARY 06/14/2019 KIKO QUEZADA [facility], ALI FACP CCDS Ot 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 06/14/2019 KIKO QUEZADA [facility], ALI FACP CCDS Ot I65.22 OCCLUSION AND STENOSIS OF LEFT CAROTID A 06/14/2019 KIKO QUEZADA [facility], ALI FACP CCDS Ot 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 06/14/2019 KIKO QUEZADA [facility], ALI FACP CCDS Ot J18.9 PNEUMONIA, UNSPECIFIED ORGANISM 06/14/2019 KIKO QUEZADA [facility], ALI FACP CCDS Ot J96.01 ACUTE RESPIRATORY FAILURE WITH HYPOXIA 06/14/2019 KIKO QUEZADA [facility], ALI FACP CCDS Ot N18.2 CHRONIC KIDNEY DISEASE, STAGE 2 (MILD) 06/14/2019 KIKO QUEZADA [facility], ALI FACP CCDS Ot R41.82 ALTERED MENTAL STATUS, UNSPECIFIED 06/14/2019 KIKO QUEZADA [facility], ALI FACP CCDS Ot Z79.84 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 06/14/2019 KIKO QUEZADA [facility], ALI FACP CCDS Ot Z87.891 PERSONAL HISTORY OF NICOTINE DEPENDENCE 06/15/2019 KIKO QUEZADA [facility], ALI FACP CCDS Ot A41.9 SEPSIS, UNSPECIFIED ORGANISM 06/15/2019 KIKO QUEZADA [facility], ALI FACP CCDS Ot D64.9 ANEMIA, UNSPECIFIED 06/15/2019 KIKO QUEZADA [facility], ALI FACP CCDS Ot 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 06/15/2019 KIKO QUEZADA [facility], ALI FACP CCDS Ot E87.2 ACIDOSIS 06/15/2019 KIKO QUEZADA [facility], ALI FACP CCDS Ot F03.90 UNSPECIFIED DEMENTIA WITHOUT BEHAVIORAL 06/15/2019 KIKO QUEZADA [facility], ALI FACP CCDS Ot G81.91 HEMIPLEGIA, UNSPECIFIED AFFECTING RIGHT 06/15/2019 KIKO QUEZADA [facility], ALI FACP CCDS Ot I10 ESSENTIAL (PRIMARY) HYPERTENSION 06/15/2019 KIKO QUEZADA [facility], ALI FACP CCDS Ot I21.4 NON-ST ELEVATION (NSTEMI) MYOCARDIAL INF 06/15/2019 KIKO QUEZADA [facility], ALI FACP CCDS Ot I25.10 ATHSCL HEART DISEASE OF [place] CORONARY 06/15/2019 KIKO QUEZADA [facility], ALI FACP CCDS Ot 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 06/15/2019 KIKO QUEZADA [facility], ALI FACP CCDS Ot I65.22 OCCLUSION AND STENOSIS OF LEFT CAROTID A 06/15/2019 KIKO QUEZADA [facility], ALI FACP CCDS Ot 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 06/15/2019 KIKO QUEZADA [facility], ALI FACP CCDS Ot J18.9 PNEUMONIA, UNSPECIFIED ORGANISM 06/15/2019 KIKO QUEZADA [facility], ALI FACP CCDS Ot J96.01 ACUTE RESPIRATORY FAILURE WITH HYPOXIA 06/15/2019 KIKO QUEZADA [facility], ALI FACP CCDS Ot N18.2 CHRONIC KIDNEY DISEASE, STAGE 2 (MILD) 06/15/2019 KIKO QUEZADA [facility], ALI FACP CCDS Ot R41.82 ALTERED MENTAL STATUS, UNSPECIFIED 06/15/2019 KIKO QUEZADA [facility], ALI FACP CCDS Ot Z79.84 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 06/15/2019 KIKO QUEZADA [facility], ALI FACP CCDS Ot Z87.891 PERSONAL HISTORY OF NICOTINE DEPENDENCE 06/15/2019 KIKO QUEZADA [facility], ALI FACP CCDS Ot A41.9 SEPSIS, UNSPECIFIED ORGANISM 06/15/2019 KIKO QUEZADA [facility], ALI FACP CCDS Ot D64.9 ANEMIA, UNSPECIFIED 06/15/2019 KIKO QUEZADA [facility], ALI FACP CCDS Ot 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 06/15/2019 KIKO QUEZADA [facility], ALI FACP CCDS Ot E87.2 ACIDOSIS 06/15/2019 KIKO QUEZADA [facility], ALI FACP CCDS Ot F03.90 UNSPECIFIED DEMENTIA WITHOUT BEHAVIORAL 06/15/2019 KIKO QUEZADA [facility], ALI FACP CCDS Ot G81.91 HEMIPLEGIA, UNSPECIFIED AFFECTING RIGHT 06/15/2019 KIKO QUEZADA [facility], ALI FACP CCDS Ot I10 ESSENTIAL (PRIMARY) HYPERTENSION 06/15/2019 KIKO QUEZADA [facility], ALI FACP CCDS Ot I21.4 NON-ST ELEVATION (NSTEMI) MYOCARDIAL INF 06/15/2019 KIKO QUEZADA [facility], ALI FACP CCDS Ot I25.10 ATHSCL HEART DISEASE OF [place] CORONARY 06/15/2019 KIKO QUEZADA [facility], ALI FACP CCDS Ot 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 06/15/2019 KIKO QUEZADA [facility], ALI FACP CCDS Ot I65.22 OCCLUSION AND STENOSIS OF LEFT CAROTID A 06/15/2019 KIKO QUEZADA [facility], ALI FACP CCDS Ot 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 06/15/2019 KIKO QUEZADA [facility], ALI FACP CCDS Ot J18.9 PNEUMONIA, UNSPECIFIED ORGANISM 06/15/2019 KIKO QUEZADA [facility], ALI FACP CCDS Ot J96.01 ACUTE RESPIRATORY FAILURE WITH HYPOXIA 06/15/2019 KIKO QUEZADA [facility], ALI FACP CCDS Ot N18.2 CHRONIC KIDNEY DISEASE, STAGE 2 (MILD) 06/15/2019 KIKO QUEZADA [facility], ALI FACP CCDS Ot R41.82 ALTERED MENTAL STATUS, UNSPECIFIED 06/15/2019 KIKO QUEZADA [facility], ALI FACP CCDS Ot Z79.84 MCFP (CURRENT) USE OF ORAL HYPOGLYC 06/15/2019 KIKO QUEZADA [facility], ALI FACP CCDS Ot Z87.891 PERSONAL HISTORY OF NICOTINE DEPENDENCE 06/16/2019 KIKO QUEZADA [facility], ALI FACP CCDS Ot A41.9 SEPSIS, UNSPECIFIED ORGANISM 06/16/2019 KIKO QUEZADA [facility], ALI FACP CCDS Ot D64.9 ANEMIA, UNSPECIFIED 06/16/2019 KIKO QUEZADA [facility], ALI FACP CCDS Ot 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 06/16/2019 KIKO QUEZADA [facility], ALI FACP CCDS Ot E87.2 ACIDOSIS 06/16/2019 KIKO QUEZADA [facility], ALI FACP CCDS Ot F03.90 UNSPECIFIED DEMENTIA WITHOUT BEHAVIORAL 06/16/2019 KIKO QUEZADA [facility], ALI FACP CCDS Ot G81.91 HEMIPLEGIA, UNSPECIFIED AFFECTING RIGHT 06/16/2019 KIKO QUEZADA [facility], ALI FACP CCDS Ot I10 ESSENTIAL (PRIMARY) HYPERTENSION 06/16/2019 KIKO QUEZADA [facility], ALI FACP CCDS Ot I21.4 NON-ST ELEVATION (NSTEMI) MYOCARDIAL INF 06/16/2019 KIKO QUEZADA [facility], ALI FACP CCDS Ot I25.10 ATHSCL HEART DISEASE OF [place] CORONARY 06/16/2019 KIKO SANTOS, ALI FACP CCDS Ot 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 06/16/2019 KIKO SANTOS, ALI FACP CCDS Ot I65.22 OCCLUSION AND STENOSIS OF LEFT CAROTID A 06/16/2019 KIKO QUEZADA [facility], ALI FACP CCDS Ot 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 06/16/2019 KIKO QUEZADA [facility], ALI FACP CCDS Ot J18.9 PNEUMONIA, UNSPECIFIED ORGANISM 06/16/2019 KIKO QUEZADA [facility], ALI FACP CCDS Ot J96.01 ACUTE RESPIRATORY FAILURE WITH HYPOXIA 06/16/2019 KIKO QUEZADA [facility], ALI FACP CCDS Ot N18.2 CHRONIC KIDNEY DISEASE, STAGE 2 (MILD) 06/16/2019 KIKO QUEZADA [facility], ALI FACP CCDS Ot R41.82 ALTERED MENTAL STATUS, UNSPECIFIED 06/16/2019 KIKO QUEZADA [facility], ALI FACP CCDS Ot Z79.84 MCFP (CURRENT) USE OF ORAL HYPOGLYC 06/16/2019 KIKO QUEZADA [facility], ALI FACP CCDS Ot Z87.891 PERSONAL HISTORY OF NICOTINE DEPENDENCE 06/17/2019 KIKO QUEZADA [facility], ALI FACP CCDS Ot A41.9 SEPSIS, UNSPECIFIED ORGANISM 06/17/2019 KIKO QUEZADA [facility], ALI FACP CCDS Ot D64.9 ANEMIA, UNSPECIFIED 06/17/2019 KIKO QUEZADA [facility], ALI FACP CCDS Ot 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 06/17/2019 KIKO QUEZADA [facility], ALI FACP CCDS Ot E87.2 ACIDOSIS 06/17/2019 KIKO QUEZADA [facility], ALI FACP CCDS Ot F03.90 UNSPECIFIED DEMENTIA WITHOUT BEHAVIORAL 06/17/2019 KIKO QUEZADA [facility], ALI FACP CCDS Ot G81.91 HEMIPLEGIA, UNSPECIFIED AFFECTING RIGHT 06/17/2019 KIKO QUEZADA [facility], ALI FACP CCDS Ot I10 ESSENTIAL (PRIMARY) HYPERTENSION 06/17/2019 KIKO QUEZADA [facility], ALI FACP CCDS Ot I21.4 NON-ST ELEVATION (NSTEMI) MYOCARDIAL INF 06/17/2019 KIKO QUEZADA [facility], ALI FACP CCDS Ot I25.10 ATHSCL HEART DISEASE OF [place] CORONARY 06/17/2019 KIKO QUEZADA [facility], ALI FACP CCDS Ot 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 06/17/2019 KIKO QUEZADA [facility], ALI FACP CCDS Ot I65.22 OCCLUSION AND STENOSIS OF LEFT CAROTID A 06/17/2019 KIKO QUEZADA [facility], ALI FACP CCDS Ot 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 06/17/2019 KIKO QUEZADA [facility], ALI FACP CCDS Ot J18.9 PNEUMONIA, UNSPECIFIED ORGANISM 06/17/2019 KIKO QUEZADA [facility], ALI FACP CCDS Ot J96.01 ACUTE RESPIRATORY FAILURE WITH HYPOXIA 06/17/2019 KIKO QUEZADA FACC, ALI FACP CCDS Ot N18.2 CHRONIC KIDNEY DISEASE, STAGE 2 (MILD) 06/17/2019 KIKO QUEZADA FACC, ALI FACP CCDS Ot R41.82 ALTERED MENTAL STATUS, UNSPECIFIED 06/17/2019 KIKO SANTOS, ALI FACP CCDS Ot Z79.84 MCFP (CURRENT) USE OF ORAL HYPOGLYC 06/17/2019 KIKO SANTOS, ALI FACP CCDS Ot Z87.891 PERSONAL HISTORY OF NICOTINE DEPENDENCE Procedures Code Description Performed By Per formed On IN SPECTION OF HEART, PERCUTANEOUS APPROA 06/11/2019 [id number] ME ASURE OF CARDIAC SAMPL PRESSURE, L H 06/11/2019 [id number] FL UOROSCOPY OF MULT COR ART USING L OSM 06/11/2019 [id number] FL UOROSCOPY OF LEFT HEART USING LOW [...] - 06/11/19 22:00 Bacterial blood culture NG [facility] Influenza virus A and B antigen detectio n - 06/11/19 22:04 FLU RESULT NEGATIVE FOR INFLUENZA A AND B ANTIGENS BY IA [facility] Methicillin resistant Staphylococcus aur eus (MRSA) screening culture - 06/11/19 22:04 Methicillin resistant Staphylococcus aureus (MRSA) scr eening culture NEG [facility] RESPIRATORY VIRUS PANEL - 06/11/19 22:04 Serum [...] Status Pt. Type Provider Facility Loc./Unit Complaint [id number] 06/11/2019 20:49:00 020 15:00:00 DIS Inpatient KIKO QUEZADA FACC, CHRISTINE SMITH CCD S [facility] 4TH N-STEMI [id number] 12/18/2018 12:24:00 019 14:12:00 DIS Emergency BEKAH STEWARD MD [facility] ER FALL[place], HIP SHARIF N [id number] 08/27/2014 12:29:00 015 16:15:00 DIS Emergency IVANA BERNAL DO a [facility] ER RT SHOULDER PAIN
[2019-06-25] MEDS ORDERED: CALC500T64 PO (06:52)
[2019-06-25] MEDS ORDERED: TERA10CA3 PO (08:37)
[2019-06-25] MEDS ORDERED: FINA5TAB6 PO (08:38)
[2019-06-25] MEDS ORDERED: ASPI-983 PO (08:38)
[2019-06-25] MEDS ORDERED: ATOR40TA70 PO (08:38)
[2019-06-25] MEDS ORDERED: FURO40TA4 PO (08:38)
[2019-06-25] MEDS ORDERED: CLOP75TA28 PO (08:38)
[2019-06-25] MEDS ORDERED: METO50TA7 PO (08:38)
[2019-06-25] MEDS ORDERED: ACET325T49 PO (08:38)
[2019-06-25] MEDS ORDERED: GLUC500C2 PO (08:38)
== END 2019-06-17 15:00 | DRG 246 ==
LOC: EDUNIT# 11:46 → ER 11:47 → CATH 13:43 → CSD 15:57 → ICU 20:30 → CATH 20:49 → 4TH 06-15 10:54
PROVIDERS: ADMIT Internal Medicine Cardiovascular Disease; ATTEND Internal Medicine Cardiovascular Disease
PROC: 4A023N7 Measurement of Cardiac Sampling and Pressure, Left Heart, Percutaneous Approach (ICD-10-PCS; 2019-06-11)
PROC: B2111ZZ Fluoroscopy of Multiple Coronary Arteries using Low Osmolar Contrast (ICD-10-PCS; 2019-06-11)
PROC: B2151ZZ Fluoroscopy of Left Heart using Low Osmolar Contrast (ICD-10-PCS; 2019-06-11)
PROC: 02JA3ZZ Inspection of Heart, Percutaneous Approach (ICD-10-PCS; 2019-06-11)
PROC: 027034Z Dilation of Coronary Artery, One Artery with Drug-eluting Intraluminal Device, Percutaneous Approach (ICD-10-PCS; principal; 2019-06-14)
PROC: B2101ZZ Fluoroscopy of Single Coronary Artery using Low Osmolar Contrast (ICD-10-PCS; 2019-06-14)
DX: I21.4 Non-ST elevation (NSTEMI) myocardial infarction (principal); J96.01 Acute respiratory failure with hypoxia; A41.9 Sepsis, unspecified organism; J18.9 Pneumonia, unspecified organism; E87.2 Acidosis; G81.91 Hemiplegia, unspecified affecting right dominant side; I13.0 Hypertensive heart and chronic kidney disease with heart failure and stage 1 through stage 4 chronic kidney disease, or unspecified chronic kidney disease; I50.20 Unspecified systolic (congestive) heart failure; Z66 Do not resuscitate; R65.20 Severe sepsis without septic shock; I25.118 Atherosclerotic heart disease of native coronary artery with other forms of angina pectoris; I69.820 Aphasia following other cerebrovascular disease; E11.21 Type 2 diabetes mellitus with diabetic nephropathy; N18.3 Chronic kidney disease, stage 3 (moderate); D64.9 Anemia, unspecified; R41.82 Altered mental status, unspecified; I65.22 Occlusion and stenosis of left carotid artery; F03.90 Unspecified dementia, unspecified severity, without behavioral disturbance, psychotic disturbance, mood disturbance, and anxiety; Z79.84 Long term (current) use of oral hypoglycemic drugs; E78.5 Hyperlipidemia, unspecified; E87.6 Hypokalemia; I34.0 Nonrheumatic mitral (valve) insufficiency; I45.10 Unspecified right bundle-branch block; Z87.891 Personal history of nicotine dependence
CPT/HCPCS: 36415; 71045; 80048; 80053; 80061; 81000; 82805; 83605; 83735; 83874; 83880; 84100; 84132; 84145; 84484; 85007; 85025; 85027; 85610; 85730; 87040; 87081; 87088; 87631; 87804; 93005; 93041; 93306; 93454; 93458; 94640; 94660; 94760